=== PATIENT | female | born 1980 | race Caucasian/White ===

== ENCOUNTER 2020-04-24 08:02 | Outpatient (CLI) | payer BC, SELFPAY ==
[2020-04-24 08:37] LABS: Alanine Aminotransferase 14 U/L (4-35); Albumin Level 4.5 g/dL (3.5-5.1); Alkaline Phosphatase 42 U/L (38-126); Anion Gap 9 mmol/L (8-16); Aspartate Amino Transferase 20 U/L (14-36); Bilirubin,Total 0.6 mg/dL (0.2-1.3); Blood Urea Nitrogen 12 mg/dL (7-17); Calcium 9.2 mg/dL (8.4-10.2); Carbon Dioxide 24 mmol/L (22-30); Chloride 104 mmol/L (98-107); Cholesterol 174 mg/dL (0-200); Estimated Glomerular Filt Rate > 60; Glucose 115 mg/dL (65-105); HDL Direct 32 mg/dL; Potassium 4.2 mmol/L (3.4-5.0); Sodium 137 mmol/L (137-145); Triglycerides 129 mg/dL (<150)
[2020-04-24 08:48] LABS: LDL Cholesterol Direct 114 mg/dL
[2020-04-24 08:57] LABS: Hemoglobin A1C 5.4 % (<5.7)
[2020-04-24 09:25] LABS: Thyroid Stimulating Hormone Reflex 0.998 uIU/mL (0.465-4.68)
[2020-04-29 04:38] LABS: Insulin Level Total 5.4 uIU/mL (<=19.6)
[2020-04-30 12:29] LABS: Triiodothyronine T3 Free 3.5
== END 2020-04-24 08:03 | disposition home or self-care (01) ==
LOC: ANHLAB 08:05
PROVIDERS: PCP Family Medicine; Visit Provider Internal Medicine Endocrinology, Diabetes & Metabolism
DX: R73.01 Impaired fasting glucose (principal); Z13.220 Encounter for screening for lipoid disorders; E04.1 Nontoxic single thyroid nodule
CPT/HCPCS: 36415; 80053; 80061; 83036; 83525; 84439; 84443; 84481

== ENCOUNTER 2020-07-29 10:08 | Outpatient (CLI) | payer BC, SELFPAY ==
[2020-07-29 11:01] LABS: Hemoglobin A1C 5.1 % (<5.7)
[2020-07-29 11:13] LABS: Alanine Aminotransferase 14 U/L (4-35); Albumin Level 4.4 g/dL (3.5-5.1); Alkaline Phosphatase 50 U/L (38-126); Anion Gap 7 mmol/L (8-16); Aspartate Amino Transferase 22 U/L (14-36); Bilirubin,Total 0.5 mg/dL (0.2-1.3); Blood Urea Nitrogen 10 mg/dL (7-17); Calcium 9.2 mg/dL (8.4-10.2); Carbon Dioxide 29 mmol/L (22-30); Chloride 104 mmol/L (98-107); Estimated Glomerular Filt Rate > 60; Glucose 99 mg/dL (65-105); Sodium 140 mmol/L (137-145)
[2020-07-29 11:37] LABS: Thyroid Stimulating Hormone 0.664 uIU/mL (0.465-4.680)
[2020-07-29 11:51] LABS: Free T4 Free Thyroxine 1.12 ng/mL (0.78-2.19)
[2020-08-01 05:55] LABS: Insulin Level Total 4.6 uIU/mL (<=19.6); Thyroid Peroxidase Antibodies 4 IU/mL (<9)
[2020-08-02 06:48] LABS: Triiodothyronine T3 Free 3.1 pg/mL (2.3-4.2)
[2020-08-04 05:14] LABS: Calcitonin <2 pg/mL (<=5)
== END 2020-07-29 10:09 | disposition home or self-care (01) ==
LOC: ANHLAB 10:10
PROVIDERS: PCP Family Medicine; Visit Provider Internal Medicine Endocrinology, Diabetes & Metabolism
DX: R73.01 Impaired fasting glucose (principal); E04.1 Nontoxic single thyroid nodule
CPT/HCPCS: 36415; 80053; 82308; 83036; 83525; 84439; 84443; 84481; 86376

== ENCOUNTER 2020-08-20 14:12 | Outpatient (CLI) | payer BC, SELFPAY ==
--- NOTE | ~2020-08-20 | US_ITS ---
EXAMINATION: US thyroid DATE: 08/20/2020 14:36 INDICATION: Nontoxic single thyroid nodule. TECHNIQUE: Multiple ultrasound images of the thyroid were obtained. COMPARISON: None. FINDINGS: The right thyroid lobe measures 4.6 x 2.1 x 1.4 cm. The left thyroid lobe measures 4.5 x 1.6 x 1.3 c m. In the right thyroid lobe, there is a 7 mm solid, hypoechoic, wznse-krfj-uruo nodule with lobulat ed margin without echogenic foci (TI-RADS TR4). In the thyroid isthmus, there is a 6 mm solid, hypoec hoic, ebxky-jdsk-joyp nodule with ill-defined margin without echogenic foci (TR4). IMPRESSION: 1. Small thyroid nodules, likely not clinically significant. No follow-up is needed. Reviewed, dictated and finalized at location A. UNT SUPPORT ASSOCIATE IMPRESSION: 1. Small thyroid nodules, likely not clinically significant. No follow-up is ne eded.
== END 2020-08-20 14:13 | disposition home or self-care (01) ==
PROVIDERS: PCP Family Medicine; Visit Provider Internal Medicine Endocrinology, Diabetes & Metabolism
DX: E04.2 Nontoxic multinodular goiter (principal)
CPT/HCPCS: 76536

== ENCOUNTER 2020-10-15 07:52 | Outpatient (CLI) | payer BC, SELFPAY ==
[2020-10-15 08:57] LABS: Alanine Aminotransferase 19 U/L (4-35); Albumin Level 4.5 g/dL (3.5-5.1); Alkaline Phosphatase 41 U/L (38-126); Anion Gap 9 mmol/L (8-16); Aspartate Amino Transferase 23 U/L (14-36); Bilirubin,Total 0.6 mg/dL (0.2-1.3); Blood Urea Nitrogen 11 mg/dL (7-17); Calcium 9.3 mg/dL (8.4-10.2); Carbon Dioxide 24 mmol/L (22-30); Chloride 105 mmol/L (98-107); Estimated Glomerular Filt Rate > 60; Glucose 100 mg/dL (65-105); Potassium 4.1 mmol/L (3.4-5.0); Sodium 138 mmol/L (137-145)
[2020-10-15 10:17] LABS: Free T4 Free Thyroxine 1.14 ng/mL (0.78-2.19); Vitamin D 25 Hydroxy 44.1 ng/mL
[2020-10-15 10:18] LABS: Folic Acid > 20.0 ng/mL (2.76->20)
[2020-10-17 03:42] LABS: Insulin Level Total 5.8 uIU/mL (<=19.6); Thyroid Peroxidase Antibodies 2 IU/mL (<9)
[2020-10-18 06:53] LABS: Triiodothyronine T3 Free 3.5 pg/mL (2.3-4.2)
[2020-10-19 05:03] LABS: Calcitonin <2 pg/mL (<=5)
[2020-10-20 14:03] LABS: Thyroid Stimulating Immunoglob <89 % baseline (<140)
== END 2020-10-15 07:53 | disposition home or self-care (01) ==
LOC: ANHLAB 07:55
PROVIDERS: PCP Family Medicine; Visit Provider Internal Medicine Endocrinology, Diabetes & Metabolism
DX: R73.01 Impaired fasting glucose (principal); E04.1 Nontoxic single thyroid nodule; E06.3 Autoimmune thyroiditis; E55.9 Vitamin D deficiency, unspecified
CPT/HCPCS: 36415; 80053; 82306; 82308; 82607; 82746; 83036; 83525; 84439; 84443; 84445; 84481; 86376

== ENCOUNTER 2021-07-12 07:42 | Outpatient (CLI) | payer BC, SELFPAY ==
[2021-07-12 09:10] LABS: Thyroid Stimulating Hormone 0.826 uIU/mL (0.465-4.680)
[2021-07-12 09:20] LABS: Free T4 Free Thyroxine 1.17 ng/mL (0.78-2.19)
[2021-07-12 09:39] LABS: Alanine Aminotransferase 12 U/L (4-35); Albumin Level 4.2 g/dL (3.5-5.1); Alkaline Phosphatase 48 U/L (38-126); Anion Gap 8 mmol/L (8-16); Aspartate Amino Transferase 18 U/L (14-36); Bilirubin,Total 0.5 mg/dL (0.2-1.3); Blood Urea Nitrogen 8 mg/dL (7-17); Calcium 9.2 mg/dL (8.4-10.2); Carbon Dioxide 26 mmol/L (22-30); Chloride 106 mmol/L (98-107); Glucose 104 mg/dL (65-110); Sodium 140 mmol/L (137-145)
[2021-07-12 09:41] LABS: Estimated Glomerular Filt Rate > 60
[2021-07-15 05:55] LABS: Insulin Level Total 4.5 uIU/mL (<=19.6); Thyroid Peroxidase Antibodies 3 IU/mL (<9)
[2021-07-17 11:56] LABS: Pancreatic Elastase, Stool >500 mcg/g
[2021-07-18 01:36] LABS: Fecal Fat, Ql Normal (Normal)
[2021-07-18 08:41] LABS: Gliadin AB, IgG 170.6 U/mL (<15.0); Reticulin IgA Negative (Negative); TTG IGA AB <1.0 U/mL (<15.0)
== END 2021-07-12 07:43 | disposition home or self-care (01) ==
PROVIDERS: PCP Family Medicine
DX: R73.01 Impaired fasting glucose (principal); E06.3 Autoimmune thyroiditis; R19.5 Other fecal abnormalities
CPT/HCPCS: 36415; 80053; 82656; 82705; 83036; 83516; 83525; 84439; 84443; 86255; 86376

== ENCOUNTER 2021-10-22 22:29 | Emergency (ER) | payer BC, SELFPAY ==
--- NOTE | ~2021-10-22 | CT_ITS ---
EXAMINATION: CT abdomen pelvis w con DATE: 10/23/2021 00:08 INDICATION: Left upper quadrant abdominal pain radiating to the mid sternal area. TECHNIQUE: Computed tomography (CT) of the abdomen and pelvis was performed with 100 mL Omnipaque-350 intravenous contrast. Automated exposure control and iterative reconstruction technique were employe d. The dose-length product was 352.57 mGy-cm. COMPARISON: 10/05/2017 FINDINGS: Minimal dependent atelectasis in the bilateral lower lobes. Heart size is normal. No pericardial or p leural effusion. Liver, gallbladder, spleen, pancreas, bilateral adrenal glands and kidneys are jose antonio l. A couple low-attenuation subcentimeter cysts at the lower poles of both kidneys. Bowels including the appendix are normal. Small fat-containing right inguinal hernia. Bladder, retroverted uterus and right adnexa are unremarkable. 1.8 cm left ovarian cyst/follicle. No free intraperitoneal gas or flui d. No pathologically enlarged abdominal or pelvic lymphadenopathy. Moderate degenerative disc disease with vacuum phenomena at L5-S1. IMPRESSION: 1. No acute intra-abdominal/pelvic process. 2. Small fat-containing right inguinal hernia. Reviewed, dictated and finalized at location A. S EXAMINER
[2021-10-22 22:43] VITALS: BP 138/85; PULSE 96; RESP 16; TEMP 36.3; O2SAT 100
[2021-10-22 22:50] LABS: Basophils Absolute Auto 0.1 K/mm3 (0.0-0.1); Basophils Percent Auto 0.9 % (0.2-1.2); Eosinophils Absolute Auto 0.4 K/mm3 (0-0.3); Eosinophils Percent Auto 4.2 % (0-4.4); Hematocrit 37.9 % (37.0-47.0); Hemoglobin 12.7 g/dL (12.0-15.0); Immature Granulocyte Absolute 0.03 K/mm3 (0.00-0.031); Immature Granulocyte Percent A 0.3 % (0-0.5); Lymphocytes Absolute Auto 2.76 K/mm3 (0.9-3.2); Lymphocytes Percent Auto 27.1 % (18.3-44.2); Mean Corpuscular HGB Conc 33.5 g/dl (32-36); Mean Corpuscular Hemoglobin 29.5 pg (26-34); Mean Corpuscular Volume 88.1 fl (80-100); Mean Platelet Volume 9.5 fl (7.4-10.4); Monocytes Absolute Auto 0.5 K/mm3 (0.1-0.6); Monocytes Percent Auto 5.1 % (2.6-8.5); Neutrophils Absolute Auto 6.3 K/mm3 (1.3-6.7); Neutrophils Percent Auto 62.4 % (45.5-73.1); Platelet Count Result 378 k/mm3 (150-375); Red Cell Distribution Width 12.9 % (11.5-14.5); White Blood Count 10.2 K/mm3 (4.5-10.0)
[2021-10-22 22:56] LABS: Alanine Aminotransferase 12 U/L (4-35); Albumin Level 4.7 g/dL (3.5-5.1); Alkaline Phosphatase 49 U/L (38-126); Anion Gap 9 mmol/L (8-16); Aspartate Amino Transferase 18 U/L (14-36); Bilirubin,Total 0.5 mg/dL (0.2-1.3); Blood Urea Nitrogen 11 mg/dL (7-17); Calcium 9.9 mg/dL (8.4-10.2); Carbon Dioxide 23 mmol/L (22-30); Chloride 106 mmol/L (98-107); Estimated CRCL calculation 70 ml/min; Estimated Glomerular Filt Rate > 60; Glucose 98 mg/dL (65-110); Lipase 165 U/L (23-300); Potassium 4.3 mmol/L (3.4-5.0); Sodium 138 mmol/L (137-145)
[2021-10-22 23:13] LABS: Add Urine Microscopic? NO; Appearance Urine Clear (Clear); Bilirubin Urine Negative (Negative); Blood Urine Negative (Negative); Color Urine Colorless (Yellow); Glucose Urine UA Negative (Negative); Ketones Urine Negative (Negative); Leukocyte Esterase Ur Negative LEU/UL (Negative); Nitrate Urine Negative (Negative); Protein Urine Negative (Negative); Urobilinogen Urine Negative mg/dL (<2.0)
[2021-10-22 23:24] LABS: Specific Grav Ur 1.003 (1.001-1.035)
--- NOTE | 2021-10-22 23:31 | ED.ABDPAIN ---
HPI - Abdominal Pain General Chief Complaint: Abdominal Pain Stated Complaint: LUQ abd pain Time Seen by Provider: 10/22/21 23:12 History of Present Illness HPI narrative: 41-year-old female presents to the emergency room with acute onset of left upper quadrant pain. States pain started about 2 hours ago. Reports pain radiates into the back. Describes pain as sharp and stabbing. No history of similar symptoms. Abdominal pain is associated with several episodes of diarrhea. Denies nausea vomiting. Related Data Home Medications Medication Instructions Recorded Confirmed metformin mg PO 10/23/21 Allergies Allergy/AdvReac Type Severity Reaction Status Date / Time No Known Allergies Allergy Verified 10/23/21 00:20 Review of Systems Review of Systems: CONSTITUTIONAL: Denies fever, chills, or sweats. EYES: Denies visual changes, redness, or discharge. ENT: Denies rhinorrhea, congestion, sore throat, or otalgia. CARDIOVASCULAR: Denies chest pain, palpitations, or edema. RESPIRATORY: Denies cough or dyspnea. GASTROINTESTINAL: Reports abdominal pain and diarrhea. GENITOURINARY: Denies dysuria or hematuria. SKIN: Denies rash or itching. MUSCULOSKELETAL: Denies back pain, joint pain, or myalgia. NEUROLOGIC: Denies headache, numbness, dizziness, or weakness. PSYCHIATRIC: Denies anxiety or depression. [facility] Past Medical History Medical History (Updated 10/23/21 @ 00:31 by Maurice Infante APRN) Floyr's disease Family History Family History Mother Family history of malignant neoplasm of breast in first degree relative Patient's mother is in good health Father Patient's father is in good health Social History Social History Smoking status: Never smoker Second hand tobacco smoke exposure: No Alcohol intake: current Exam Narrative: GENERAL: Well-appearing, well-nourished, and in no acute distress. HEAD: Normocephalic, atraumatic. EYES: PERRLA and EOMI. ENT: Nares clear, no rhinorrhea or epistaxis. Mucous membranes moist. Oropharynx without tonsillar hypertrophy exudate or other lesions. Bilateral TMs pearly lizarraga nonbulging NECK: Supple. No adenopathy or masses. No carotid bruits or JVD CHEST: Clear to auscultation. No respiratory distress. No wheezes rales or rhonchi HEART: Regular rate and rhythm. No murmur heard. Normal peripheral pulses. ABDOMEN: Soft, LUQ tenderness, nondistended, normal active bowel sounds. No CVA tenderness EXTREMITIES: Normal range of motion. No edema. SKIN: Warm, dry, no rash. NEURO: No focal deficits. Alert and oriented x3. PSYCH: Normal mood and affect. Course Course Emergency Course: 41-year-old female present to the emergency room with complaints of left upper quadrant abdominal pain that acutely started at about 9:00 this evening. Patient also states that she had multiple episodes of diarrhea. On further interview patient stated that she recently recovered from an upper respiratory infection. Lab work demonstrated no acute abnormal results. CT scan demonstrated mesenteric adenitis. Vital Signs Vital signs: Vital Signs Temperature 36.3 C L 10/22/21 22:43 Pulse Rate 96 10/22/21 22:43 Respiratory Rate 16 10/22/21 22:43 Blood Pressure 138/85 10/22/21 22:43 Pulse Oximetry 100 10/22/21 22:43 Temperature 36.3 C L 10/22/21 22:43 Pulse Rate 85 10/23/21 00:18 Respiratory Rate 18 10/23/21 00:18 Blood Pressure 111/70 10/23/21 00:18 Pulse Oximetry 97 10/23/21 00:18 MDM - Abdominal Pain MDM Narrative Medical decision making narrative: Patient demonstrates mesenteric adenitis of the left upper quadrant. Discussed with patient to start on a clear liquid diet and then advance as tolerated. Patient stated Differential Diagnosis Differential diagnosis: Likely abdominal pain Medical Records Attestation: I reviewed the patient's m
[2021-10-23 00:18] VITALS: BP 111/70; PULSE 85; RESP 18; O2SAT 97
[2021-10-23] MEDS: SODIUM CHLORIDE 0.9% IV 1,000 ML 999 ML IV CONT (00:18)
[2021-10-23 00:55] VITALS: BP 110/70; PULSE 91; RESP 18; O2SAT 97
== END 2021-10-23 00:49 | disposition home or self-care (01) ==
PROVIDERS: Emergency Medicine; Emergency Provider Nurse Practitioner Family; PCP Family Medicine
DX: I88.0 Nonspecific mesenteric lymphadenitis (principal); E06.3 Autoimmune thyroiditis; Z79.84 Long term (current) use of oral hypoglycemic drugs
CPT/HCPCS: 36415; 74177; 80053; 81003; 81025; 83690; 85025; 96360; 99284; J7030; Q9967

== ENCOUNTER 2022-01-20 16:43 | Emergency (ER) | payer BC, SELFPAY ==
--- NOTE | ~2022-01-20 | XR_ITS ---
EXAMINATION: XR chest 2V DATE: 01/20/2022 17:13 INDICATION: Cough. TECHNIQUE: Frontal and lateral views of the chest were obtained. COMPARISON: Chest 2 views 03/21/2018, CT abdomen and pelvis 10/22/2021 FINDINGS: The chest demonstrates clear lungs without pneumonia, pleural effusion, or pneumothorax. Th e heart size is normal. IMPRESSION: 1. No acute cardiopulmonary disease. Reviewed, dictated and finalized at location A.
[2022-01-20 16:53] VITALS: BP 113/81; PULSE 78; RESP 16; TEMP 37.4; O2SAT 100
--- NOTE | 2022-01-20 17:03 | ED.URI ---
HPI - URI/Sore Throat General Chief Complaint: Upper Respiratory Infection Stated Complaint: cough Time Seen by Provider: 01/20/22 16:53 Source: patient and RN notes reviewed Mode of arrival: ambulatory Limitations: no limitations History of Present Illness HPI Narrative: 41-year-old female presented for complaint of cough for 6 days. She endorses cough is nonproductive, frequent, to the point of gagging, and sore throat. She denies associated shortness of breath, wheezing, nausea, vomiting, diarrhea, fever or chills. Taking DayQuil for symptoms. She is not vaccinated for COVID or flu. Denies sick contacts. States last month she was diagnosed with [place]. MD elicited complaint: cough Related Data Home Medications Medication Instructions Recorded Confirmed metformin 500 mg PO DAILY 01/20/22 01/20/22 Allergies Allergy/AdvReac Type Severity Reaction Status Date / Time No Known Allergies Allergy Verified 01/20/22 17:04 Review of Systems Review of Systems: CONSTITUTIONAL: Denies malaise, chills, sweats, fever EYES: Denies visual changes, redness, or discharge ENT: Denies rhinorrhea, congestion, sinus pain, otalgia CARDIOVASCULAR: Denies chest pain, palpitations, edema RESPIRATORY: Denies dyspnea GASTROINTESTINAL: Denies abdominal pain, nausea, vomiting, diarrhea SKIN: Denies rash or itching MUSCULOSKELETAL: Denies myalgia NEUROLOGIC: Denies headache PMFSH Past Medical History Medical History Flory's disease Surgical History Surgical History H/O sinus surgery Hx of laparoscopy Family History Family History Mother Family history of malignant neoplasm of breast in first degree relative Patient's mother is in good health Father Patient's father is in good health Social History Social History Smoking packs per day: 1 Smoking cigarettes per day: 20.0 Years smoked: 8 Smoking pack-years: 8.00 Smoking status: Former smoker Second hand tobacco smoke exposure: No Smoking end date: 09/04/04 Alcohol intake: never Substance use: never Substance use type: does not use Gender identity (if verbalized by the patient): Female Exam Narrative: GENERAL: Ill-appearing, nontoxic HEAD: Normocephalic EYES: conjunctivae clear ENT: Mucous membranes moist. TM pearly lizarraga with normal light reflex bilaterally; no tragal tenderness. Oropharynx without lesions or exudate, no drooling, no hoarseness, no trismus, uvula midline. NECK: Supple. No lymphadenopathy CHEST: Frequent nonproductive cough. Lungs Clear to auscultation, breath sounds equal. No respiratory distress, speaks in full sentences. HEART: Regular rate and rhythm. No murmur heard. SKIN: Warm, dry, no rash. NEURO: Alert and oriented x3. PSYCH: Normal mood and affect Course Course Emergency Course: Patient is aware of diagnosis, understands and agrees to treatment plan. Anticipatory guidance given. Patient agrees to follow-up as directed and is aware of reasons to seek care at the emergency department. Portions of this record may have been created with voice recognition software Level of Care: Express Care Visit Vital Signs Vital signs: Vital Signs Temperature 99.4 F 01/20/22 16:53 Pulse Rate 78 01/20/22 16:53 Respiratory Rate 16 01/20/22 16:53 Blood Pressure 113/81 01/20/22 16:53 Pulse Oximetry 100 01/20/22 16:53 Temperature 99.4 F 01/20/22 16:53 Pulse Rate 78 01/20/22 16:53 Respiratory Rate 16 01/20/22 16:53 Blood Pressure 113/81 01/20/22 16:53 Pulse Oximetry 100 01/20/22 16:53 reviewed MDM - URI/Sore Throat MDM Narrative Medical decision making narrative: Chest x-ray reviewed with patient, negative. Strep throat negative. She is advised on supportive treatment
== END 2022-01-20 17:53 | disposition home or self-care (01) ==
PROVIDERS: Emergency Provider Nurse Practitioner Family; PCP Family Medicine
DX: J40 Bronchitis, not specified as acute or chronic (principal); Z87.891 Personal history of nicotine dependence; E06.3 Autoimmune thyroiditis; Z28.310 Unvaccinated for COVID-19
CPT/HCPCS: 71046; 87081; 87880; 99213; G0463

== ENCOUNTER 2022-04-15 07:42 | Outpatient (CLI) | payer BC, SELFPAY ==
[2022-04-15 08:21] LABS: Alanine Aminotransferase 13 U/L (6-35); Albumin Level 4.5 g/dL (3.5-5.1); Alkaline Phosphatase 44 U/L (38-126); Anion Gap 11 mmol/L (8-16); Aspartate Amino Transferase 20 U/L (14-36); Bilirubin,Total 0.5 mg/dL (0.2-1.3); Blood Urea Nitrogen 11 mg/dL (7-17); Calcium 9.4 mg/dL (8.4-10.2); Carbon Dioxide 24 mmol/L (22-30); Chloride 102 mmol/L (98-107); Estimated Glomerular Filt Rate > 60; Glucose 102 mg/dL (65-110); Potassium 4.5 mmol/L (3.4-5.0); Sodium 137 mmol/L (137-145)
[2022-04-15 08:23] LABS: Hemoglobin A1C 5.1 % (<5.7)
[2022-04-15 08:45] LABS: Free T4 Free Thyroxine 1.29 ng/mL (0.78-2.19)
[2022-04-18 02:28] LABS: Insulin Level Total 4.7 uIU/mL (<=19.6); Thyroid Peroxidase Antibodies 5 IU/mL (<9)
[2022-04-18 21:13] LABS: Triiodothyronine T3 Free 3.4 pg/mL (2.3-4.2)
== END 2022-04-15 07:43 | disposition home or self-care (01) ==
LOC: ANHLAB 07:48
PROVIDERS: PCP Family Medicine; Visit Provider Nurse Practitioner
DX: E06.3 Autoimmune thyroiditis (principal); R73.01 Impaired fasting glucose
CPT/HCPCS: 36415; 80053; 83036; 83525; 84439; 84443; 84481; 86376

== ENCOUNTER → 2022-05-31 15:47 | Outpatient (CLI) | payer BC, SELFPAY ==
--- NOTE | ~2022-05-31 | CT_ITS ---
EXAMINATION: CT pelvis w con DATE: 05/31/2022 16:16 INDICATION: Right groin mass. TECHNIQUE: High resolution computed tomography (CT) of the pelvis was performed without intravenous c ontrast. Additional sagittal and coronal reconstructions were performed. The dose-length product was 422.62 mGy-cm. COMPARISON: CT dated 10/22/2019 FINDINGS: Minimal thoracolumbar levocurvature best appreciated on the hotel director topogram. Moderate to severe spondy losis at the lumbosacral junction. Alignment is otherwise normal. No fracture or suspected avascular necrosis. No fracture. Tiny sclerotic bone island at the right femoral head. Bladder and retroverted uterus are normal. Right adnexa is unremarkable. 2.0 cm left adnexal cyst/follicle. Tiny fat-containi ng umbilical hernia. Visualized portions of the bowels are unremarkable. Normal appendix. Partially d ecompressed bladder is normal. No free intraperitoneal gas. 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 No pathologically enlarged abdominal or pelvic lymphadenopathy. Very small fat-containing right inguinal hernia. IMPRESSION: 1. 2 cm left adnexal cyst/follicle. No other acute intrapelvic process. 2. Very small right inguinal hernia. Reviewed, dictated and finalized at location A.
== END ==
PROVIDERS: PCP Family Medicine; Visit Provider Physician Assistant
DX: R19.09 Other intra-abdominal and pelvic swelling, mass and lump (principal); K40.90 Unilateral inguinal hernia, without obstruction or gangrene, not specified as recurrent
CPT/HCPCS: 72193; Q9967

== ENCOUNTER 2022-06-02 14:26 | Outpatient (RCR) | payer BC, SELFPAY ==
[2022-06-02 15:24] VITALS: BMI 27.9
== END 2022-08-24 11:28 | disposition home or self-care (01) ==
LOC: ANHDMC 14:26
PROVIDERS: PCP Family Medicine; Visit Provider Nurse Practitioner
DX: R76.8 Other specified abnormal immunological findings in serum (principal); Z71.3 Dietary counseling and surveillance
CPT/HCPCS: 97802

== ENCOUNTER 2022-09-03 07:43 | Outpatient (CLI) | payer BC, SELFPAY ==
[2022-09-03 08:15] LABS: Cholesterol 179 mg/dL (0-200); HDL Direct 39 mg/dL; Triglycerides 178 mg/dL (<150)
[2022-09-03 08:26] LABS: LDL Cholesterol Direct 99 mg/dL
[2022-09-03 09:02] LABS: Vitamin D 25 Hydroxy 38.5 ng/mL
== END 2022-09-03 07:44 | disposition home or self-care (01) ==
LOC: ANHLAB 07:44
PROVIDERS: PCP Family Medicine; Visit Provider Physician Assistant Medical
DX: E55.9 Vitamin D deficiency, unspecified (principal); E78.2 Mixed hyperlipidemia
CPT/HCPCS: 36415; 80061; 82306

== ENCOUNTER 2022-11-18 17:30 | Emergency (ER) | payer BC, SELFPAY ==
[2022-11-18 17:37] VITALS: BP 119/81; PULSE 66; RESP 18; TEMP 36.7; O2SAT 100
--- NOTE | 2022-11-18 17:37 | ED.GENADULT ---
HPI - General Adult General Chief complaint: Unspecified Stated complaint: Water fluid from nose; headache Time Seen by Provider: 11/18/22 17:37 Source: patient, RN notes reviewed and old records reviewed Mode of arrival: ambulatory Limitations: no limitations History of Present Illness HPI narrative: 42-year-old female presents to the [facility] with complaints of approximately 1 hour prior to arrival while she was cooking dinner her nose just started pouring out yellow tinged fluid. Called her insurance and started go googling her symptoms. She also states she developed a frontal headache. Denies any trauma. Denies any fevers. No coughing. Denies blurry vision or change in vision. States it is just small headache. Denies being the worst headache of her life. Walks with a normal gait Patient states the fluid was just pouring out her nose in all over her shirt Related Data Home Medications Medication Instructions Recorded Confirmed metformin 500 mg tablet,extended 500 mg PO DAILY 01/20/22 07/21/22 release 24 hr Allergies Allergy/AdvReac Type Severity Reaction Status Date / Time No Known Allergies Allergy Verified 11/18/22 17:45 Review of Systems Review of Systems: All systems reviewed & are unremarkable except as noted in HPI and below Constitutional: Constitutional: Reports no additional constitutional complaints Eyes: Eyes: Reports no additional eye complaints ENT: Reports as per HPI and Reports nasal discharge (yellow) Cardiovascular: Cardiovascular: Reports no additional cardiovascular complaints, Denies chest pain and Denies dyspnea Respiratory: Respiratory: Reports no additional respiratory complaints, Denies chest congestion, Denies cough and Denies dyspnea Gastrointestinal: Gastrointestinal: Reports no additional gastrointestinal complaints, Denies abdominal pain, Denies nausea and Denies vomiting Musculoskeletal: Musculoskeletal: Reports no additional musculoskeletal complaints Integumentary/Breasts: Skin/Breast: Reports system reviewed and no additional complaints, except as docu Neurologic: Reports system reviewed and no additional complaints, except as documented Psychiatric: Psychiatric: Reports no additional psychiatric complaints Allergic/Immunologic: Allergic/Immunologic: Reports no additional allergic/immunologic complaints PMFSH Past Medical History Medical History Flory's disease Surgical History Surgical History H/O sinus surgery Hx of laparoscopy Family History Family History Mother Family history of malignant neoplasm of breast in first degree relative Patient's mother is in good health Father Patient's father is in good health Social History Social History Smoking packs per day: 1 Smoking cigarettes per day: 20.0 Years smoked: 8 Smoking pack-years: 8.00 Smoking status: Former smoker Second hand tobacco smoke exposure: No Smoking end date: 09/04/04 Alcohol intake: never Substance use: never Substance use type: does not use Lack of Transportation: No Lack of Food: Never True Current Housing: I Have Housing Concerned About Future Housing: No Difficulty Paying Gas/Electric Bills: No Difficulty Paying for Meds: No Currently Unemployed: No Education: Bachelor's Degree Difficulty w/ Childcare or Family Care: No Living arrangements: with family Occupation/Education: occupation Gender identity (if verbalized by the patient): Female Spiritual care concerns: No Agree to blood products: Yes Comments At the time of my signature, I reviewed and agree with the nursing past medical, surgical, social, and family history. There is no relevant family history pertinent to the patient complaint. Exam Co
== END 2022-11-18 17:52 | disposition home or self-care (01) ==
PROVIDERS: Emergency Provider Nurse Practitioner; PCP Family Medicine
DX: J34.89 Other specified disorders of nose and nasal sinuses (principal); Z87.891 Personal history of nicotine dependence
CPT/HCPCS: 99211; G0463

== ENCOUNTER 2022-12-08 14:34 | Outpatient (NON) | payer BC, SELFPAY | END 2022-12-08 14:35 | disposition home or self-care (01) | PROVIDERS: PCP Family Medicine; Visit Provider Nurse Practitioner | DX: D22.61 Melanocytic nevi of right upper limb, including shoulder (principal) | CPT/HCPCS: 88305 ==

== ENCOUNTER 2023-01-04 07:29 | Outpatient (CLI) | payer BC, SELFPAY ==
[2023-01-04 08:49] LABS: Alanine Aminotransferase 19 U/L (6-35); Albumin Level 4.5 g/dL (3.5-5.1); Alkaline Phosphatase 45 U/L (38-126); Anion Gap 8 mmol/L (8-16); Aspartate Amino Transferase 18 U/L (14-36); Bilirubin,Total 0.6 mg/dL (0.2-1.3); Blood Urea Nitrogen 11 mg/dL (7-17); Calcium 9.1 mg/dL (8.4-10.2); Carbon Dioxide 22 mmol/L (22-30); Chloride 108 mmol/L (98-107); Estimated Glomerular Filt Rate > 60; Glucose 117 mg/dL (65-110); Potassium 3.9 mmol/L (3.4-5.0); Sodium 138 mmol/L (137-145)
[2023-01-04 09:17] LABS: Free T4 Free Thyroxine 1.09 ng/mL (0.78-2.19)
[2023-01-07 04:57] LABS: Insulin Level Total 7.2 uIU/mL (<=19.6); Thyroid Peroxidase Antibodies 4 IU/mL (<9)
== END 2023-01-04 07:30 | disposition home or self-care (01) ==
PROVIDERS: PCP Family Medicine; Visit Provider Internal Medicine Endocrinology, Diabetes & Metabolism
DX: E06.3 Autoimmune thyroiditis (principal); R73.01 Impaired fasting glucose
CPT/HCPCS: 36415; 80053; 83036; 83525; 84439; 84443; 84480; 86376

== ENCOUNTER 2023-01-24 11:22 | Outpatient (NON) | payer BC, SELFPAY | END 2023-01-24 11:23 | disposition home or self-care (01) | LOC: ANHLAB 01-25 11:24 | PROVIDERS: PCP Family Medicine; Visit Provider Nurse Practitioner | DX: I78.1 Nevus, non-neoplastic (principal) | CPT/HCPCS: 88305 ==

== ENCOUNTER 2023-11-17 08:55 | Outpatient (CLI) | payer BC, SELFPAY ==
[2023-11-17 09:34] LABS: Alanine Aminotransferase 20 U/L (6-35); Albumin Level 4.5 g/dL (3.5-5.1); Alkaline Phosphatase 54 U/L (38-126); Anion Gap 7 mmol/L (8-16); Aspartate Amino Transferase 21 U/L (14-36); Bilirubin,Total 0.5 mg/dL (0.2-1.3); Blood Urea Nitrogen 17 mg/dL (7-17); Calcium 9.5 mg/dL (8.4-10.2); Carbon Dioxide 24 mmol/L (22-30); Chloride 106 mmol/L (98-107); Cholesterol 181 mg/dL (0-200); Estimated Glomerular Filt Rate > 60; Glucose 115 mg/dL (65-110); HDL Direct 41 mg/dL; Potassium 4.1 mmol/L (3.4-5.0); Sodium 137 mmol/L (137-145); Triglycerides 145 mg/dL (<150)
[2023-11-17 09:45] LABS: LDL Cholesterol Direct 124 mg/dL
[2023-11-17 10:09] LABS: Vitamin D 25 Hydroxy 54.2 ng/mL
== END 2023-11-17 08:56 | disposition home or self-care (01) ==
LOC: ANHLAB 08:57
PROVIDERS: PCP Family Medicine; Visit Provider Family Medicine
DX: Z00.00 Encounter for general adult medical examination without abnormal findings (principal); E55.9 Vitamin D deficiency, unspecified; E78.2 Mixed hyperlipidemia
CPT/HCPCS: 36415; 80053; 80061; 82306

== ENCOUNTER 2024-01-31 08:59 | Outpatient (CLI) | payer BC, SELFPAY ==
--- NOTE | ~2024-01-31 | US_ITS ---
EXAMINATION: US thyroid DATE: 01/31/2024 09:20 INDICATION: Autoimmune thyroiditis. TECHNIQUE: Multiple ultrasound images of the thyroid were obtained. COMPARISON: Ultrasound 08/20/2020 FINDINGS: The right thyroid lobe measures 5.4 x 1.8 x 1.7 cm. The left thyroid lobe measures 5.0 x 1.6 x 1.4 c m. In the right thyroid lobe, there is an 8 mm solid, hypoechoic, wider than tall nodule with smooth margin without echogenic foci (TI-RADS TR4). In the left thyroid isthmus, there is a 9 mm solid, hyp oechoic, wider than tall nodule with smooth margins without echogenic foci (TR4). IMPRESSION: 1. Small thyroid nodules, likely not clinically significant. No follow-up is needed. Reviewed, dictated and finalized at location A. IMPRESSION: 1. Small thyroid nodules, likely not clinically significant. No follow-up is ne eded.
== END 2024-01-31 09:00 ==
PROVIDERS: PCP Family Medicine; Visit Provider Internal Medicine Endocrinology, Diabetes & Metabolism
DX: E06.3 Autoimmune thyroiditis (principal); E04.2 Nontoxic multinodular goiter
CPT/HCPCS: 76536

== ENCOUNTER 2024-03-27 02:57 | Emergency (ER) | payer BC, SELFPAY ==
--- NOTE | ~2024-03-27 | XR_ITS ---
EXAMINATION: XR chest 1V portable DATE: 03/27/2024 03:26 INDICATION: midsternal chest pain TECHNIQUE: frontal view of the chest was obtained. COMPARISON: Chest radiograph dated 01/20/2022 FINDINGS: The lungs remain clear with no focal airspace opacities, pulmonary edema, pleural effusion or pneumot horax. The cardiomediastinal silhouette is normal. Visualized bones and soft tissues are unremarkable . IMPRESSION: 1. No acute cardiopulmonary disease. Reviewed, dictated and finalized at location A.
--- NOTE | 2024-03-27 02:58 | ECG_ITS ---
Test Date: 2024-03-27 03:06:44 Measurements Intervals [place] Rate: 92 P: 48 [place]: 166 QRS: 10 QRSD: 93 T: 26 QT: 352 QTc: 436 Interpretive Statements SINUS RHYTHM DELAYED PRECORDIAL R/S TRANSITION BASELINE WANDER- V4 BORDERLINE ECG No previous ECG available for comparison Electronically Signed On 03-27-2024 06:29:07 CDT by Emiliano Martin D.O.
[2024-03-27 03:02] VITALS: BP 156/86; PULSE 97; RESP 17; TEMP 36.8; O2SAT 100
[2024-03-27] MEDS: ASPIRIN 81 MG CHEWABLE TABLET 324 MG PO (03:11)
[2024-03-27 03:25] LABS: Basophils Absolute Auto 0.1 K/mm3 (0.0-0.1); Basophils Percent Auto 0.8 % (0.2-1.2); Eosinophils Absolute Auto 0.3 K/mm3 (0-0.3); Eosinophils Percent Auto 2.7 % (0-4.4); Hematocrit 40.3 % (37.0-47.0); Hemoglobin 13.4 g/dL (12.0-15.0); Immature Granulocyte Absolute 0.03 K/mm3 (0.00-0.031); Immature Granulocyte Percent A 0.3 % (0-0.5); Mean Corpuscular HGB Conc 33.3 g/dl (32-36); Mean Corpuscular Hemoglobin 28.5 pg (26-34); Mean Corpuscular Volume 85.6 fl (80-100); Mean Platelet Volume 9.2 fl (7.4-10.4); Monocytes Absolute Auto 0.6 K/mm3 (0.1-0.6); Monocytes Percent Auto 5.6 % (2.6-8.5); Neutrophils Absolute Auto 7.4 K/mm3 (1.3-6.7); Neutrophils Percent Auto 73.6 % (45.5-73.1); Platelet Count Result 329 k/mm3 (150-375); Red Blood Count 4.71 M/mm3 (4.2-5.4); Red Cell Distribution Width 12.9 % (11.5-14.5)
[2024-03-27 03:31] VITALS: BP 117/84; PULSE 90; RESP 20; O2SAT 96
[2024-03-27 03:33] LABS: INR 0.9; Prothrombin Time 12.5 Seconds (11.1-14.7)
[2024-03-27 03:34] LABS: Partial Thromboplastin Time 25.1 Seconds (22.3-36.8)
[2024-03-27 03:40] LABS: Alanine Aminotransferase 13 U/L (6-35); Albumin Level 4.5 g/dL (3.5-5.1); Alkaline Phosphatase 61 U/L (38-126); Anion Gap 12 mmol/L (4-12); Aspartate Amino Transferase 17 U/L (14-36); Bilirubin,Total 0.3 mg/dL (0.2-1.3); Blood Urea Nitrogen 9 mg/dL (7-17); Calcium 9.4 mg/dL (8.4-10.2); Carbon Dioxide 20 mmol/L (22-30); Chloride 106 mmol/L (98-107); Estimated CRCL calculation 103 ml/min; Estimated Glomerular Filt Rate > 60; Glucose 145 mg/dL (65-110); Lipase 137 U/L (23-300); Potassium 3.6 mmol/L (3.4-5.0); Sodium 138 mmol/L (137-145)
[2024-03-27 03:46] VITALS: BP 118/81; PULSE 85; RESP 20; O2SAT 96
[2024-03-27 03:52] LABS: Troponin I < 0.012 ng/mL (0.000-0.034)
[2024-03-27 04:01] VITALS: BP 116/86; PULSE 87; RESP 18; O2SAT 97
[2024-03-27 04:16] VITALS: BP 115/74; PULSE 83; RESP 19; O2SAT 97
[2024-03-27 04:24] LABS: D Dimer 0.29 ug/mL (<0.48)
[2024-03-27 04:27] LABS: NT Pro B Type Natriuretic Pept < 20 pg/mL (19.9-100)
[2024-03-27 04:31] VITALS: BP 100/73; PULSE 95; RESP 26; O2SAT 98
--- NOTE | 2024-03-27 05:27 | ED.GENADULT ---
HPI - General Adult General Chief complaint: Chest Pain Stated complaint: chest tightness Time Seen by Provider: 03/27/24 03:51 History of Present Illness HPI narrative: This is a 43-year-old female presenting ED with chief complaint of chest tightness. Patient was woken up from sleep with her heart racing, difficulty catching her breath and left-sided achy chest pain. Chest pain is nonradiating, moderate and improving. Not associated with diaphoresis or exertion. Patient has recently started hormone replacement therapy for early menopause. Since she has started taking estrogen she has noticed increased anxiety. Patient has no history of blood clots or lower extremity edema. Related Data Allergies Allergy/AdvReac Type Severity Reaction Status Date / Time No Known Allergies Allergy Verified 11/13/23 10:58 [facility] Past Medical History Medical History Flory's disease Surgical History Surgical History H/O sinus surgery Hx of laparoscopy Family History Family History Mother Family history of malignant neoplasm of breast in first degree relative Patient's mother is in good health Father Patient's father is in good health Social History Social History Smoking packs per day: 1 Smoking cigarettes per day: 20.0 Years smoked: 8 Smoking pack-years: 8.00 Smoking status: Former smoker Second hand tobacco smoke exposure: No Smoking end date: 09/04/04 Alcohol intake: never Substance use: never Substance use type: does not use Lack of Transportation: No Lack of Food: Never True Current Housing: I Have Housing Concerned About Future Housing: No Difficulty Paying Gas/Electric Bills: No Difficulty Paying for Meds: No Currently Unemployed: No Education: Bachelor's Degree Difficulty w/ Childcare or Family Care: No Living arrangements: with family Occupation/Education: occupation Gender identity (if verbalized by the patient): Female Spiritual care concerns: No Agree to blood products: Yes Exam Narrative: APPEARANCE: No apparent distress. Head: atraumatic. EYES: EOMI, NOSE: Atraumatic NECK: Trachea midline RESPIRATORY: No increased rate of breathing clear to auscultation CARDIOVASCULAR: RRR, no peripheral edema ABDOMINAL: Non-distended soft nontender MUSCULOSKELETAl: No obvious deformities NEURO: Alert. Moving 4/4 extremities SKIN:: Warm, dry. Normal color PSYCHIATRIC: Normal affect Course Vital Signs Vital signs: Vital Signs Temperature 98.3 F 03/27/24 03:02 Pulse Rate 97 03/27/24 03:02 Respiratory Rate 17 03/27/24 03:02 Blood Pressure 156/86 H 03/27/24 03:02 Pulse Oximetry 100 03/27/24 03:02 Oxygen Delivery Room Air 03/27/24 03:02 Temperature 98.3 F 03/27/24 03:02 Pulse Rate 95 03/27/24 04:31 Respiratory Rate 26 H 03/27/24 04:31 Blood Pressure 100/73 03/27/24 04:31 Pulse Oximetry 98 03/27/24 04:31 Oxygen Delivery Room Air 03/27/24 03:02 Medical Decision Making MDM Narrative Medical decision making narrative: -Course: 43-year-old female presenting with chest pain that woke her from sleep. Workup including 2 troponins, BNP, D-dimer chest x-ray and EKG was negative. Patient monitor her throughout her stay without dysrhythmia or recurrence of the event. Patient safe for discharge home and outpatient workup. -DDX includes but is not limited to: Anxiety/panic disorder, ACS, PE/DVT/pneumothorax/pneumonia, costochondritis -Co-morbidities complicating care: Flory's, menopause with hormone replacement -Independent interpretation of studies: Labs reviewed Chest x-ray negative Independent EKG interpretation: Rhythm [sinus], Rate [92], [place] -[normal], NE -[normal], QRS [narrow], QTC [normal], T
[2024-03-27 06:30] LABS: Troponin I < 0.012 ng/mL (0.000-0.034)
== END 2024-03-27 06:54 | disposition home or self-care (01) ==
PROVIDERS: Emergency Provider Emergency Medicine; PCP Family Medicine
DX: R07.89 Other chest pain (principal); E06.3 Autoimmune thyroiditis; Z87.891 Personal history of nicotine dependence
CPT/HCPCS: 36415; 71045; 80053; 83690; 83880; 84484; 85025; 85380; 85610; 85730; 93005; 99284; A9270

== ENCOUNTER 2024-05-17 09:14 | Outpatient (CLI) | payer BC, SELFPAY ==
--- NOTE | ~2024-05-17 | XR_ITS ---
EXAMINATION: XR shoulder LT min 2V DATE: 05/17/2024 09:36 INDICATION: Left shoulder pain TECHNIQUE: AP internally and externally rotated, AP oblique externally rotated and transscapular Y vi ews of the left shoulder were obtained. COMPARISON: None FINDINGS: Normal alignment. No fracture. Glenohumeral joint is normal. Acromioclavicular joint is normal. Soft tissues are unremarkable. Visualized portion of the lungs are clear. IMPRESSION: Negative left shoulder radiographs. Reviewed, dictated and finalized at location B.
== END 2024-05-17 09:15 | disposition home or self-care (01) ==
PROVIDERS: PCP Family Medicine; Visit Provider Physician Assistant Medical
DX: M25.512 Pain in left shoulder (principal)
CPT/HCPCS: 73030

== ENCOUNTER 2025-04-22 14:30 | Outpatient (RCR) | payer BC, SELFPAY ==
--- NOTE | 2025-01-28 13:57 | OPREHPOC ---
Outpatient Therapy Plan of Care This is a Multidisciplinary Plan of Care that may contain components documented by all disciplines (PT, OT, and ST.) PT Problem 1 PT Problem #1 Knowledge Deficit PT Goal 1 Goal / Goal Update 1. Patient will perform independent HEP 2. Patient will verbalize urge suppression strategies Target Visit 3 PT Problem 2 PT Problem #2 Pain PT Goal 1 Goal / Goal Update 1. Patient will report no pelvic pain for 2 weeks Target Visit 5 PT Problem 3 PT Problem #3 Impaired Strength PT Goal 1 Goal / Goal Update 1. Improve pelvic floor strength to 4/5 to reduce symptoms of POP and incontinence 2. Improve pelvic floor endurance to 10 seconds to decrease symptoms of POP and incontinence Target Visit 5 PT Problem 4 PT Problem #4 Impaired Functional ADLs PT Goal 1 Goal / Goal Update 1. Patient will be able to hold urge to void at least 30 minutes 2. Patient will report no incontinence for at least 2 weeks Target Visit 5
--- NOTE | 2025-01-28 13:57 | PTOPEVAL1 ---
Assessment and note entered by uLisana Hartmann DPT Evaluation Information Assessment Status Evaluation ICD-10 Condition Codes (PT) Weakness R53.1,Pelvic and perineal pain R10.2,Urge incontinence N39.41,Separation of muscle ( nontraumatic) M62.08 Subjective Information Pt reports heaviness and pelvic pain that sometimes seems to be around her menstrual cycle. Pelvic pain is sometimes with intercourse, mild discomfort with tampon use and none with last pelvic exam. Previous pelvic floor PT for incontinence, thinks the pain has been for a few years. Voids about 10 times a day and usually none at night. Can hold urge for a few minutes at a time. Has had urge incontinence at times and wears a pantiliner almost daily. Incontinence is usually a couple times a month and sometimes has to change her clothes due to volume. Denies pain with urination. BM every other other day, which is pretty normal for her. Does get occasional constipation pain, no fecal incontinence. Pt has been 7 times, 5 deliveries which were all vaginal. Epiziotomy with her first and tears with others. Diagnosed with endometriosis, has been told she is perimenopausal. No b/b history. Patient goal: figure out the urinary urgency, prevent need for any kind of prolapse surgery, improve core strength overall Returns to MD in 1 year. Reported Pain Level Pain Score 0: Self Report Assessment PT Clinical Summary The patient is presenting to skilled therapy with a history of urge incontinence, pelvic pain, and signs/symptoms of pelvic organ prolapse. She presents with decreased pelvic floor strength and endurance, decreased hip and abdominal strength, and diastasis recti which are contributing to her pain, incontinence, and sense of heaviness. She will highly benefit from therapy to address impairments in order to reduce pain and incontinence and to restore full function. Plan of Care Interventions Manual Therapy,Neuro Re-education,Patient/ Caregiver Education,Therapeutic Activities, Therapeutic Exercise PT Services Indicated Yes Treatment Frequency and 1 time a week for 5 visits Duration These treatments will address the objective and functional deficits as defined above. The patient will be advanced safely and appropriately in order for the patient to progress towards his/her prior level of function. Additional exercises will be introduced and as well as a comprehensive home exercise program upon discharge, if needed, ?to ensure carryover of functional gains achieved in the clinic. This treatment plan has been reviewed and agreement upon by the patient.
--- NOTE | 2025-02-25 13:57 | PCPTNOTE ---
Patient called to cancel appointment 02/25/25 due to family emergency. Rescheduled to next week.
--- NOTE | 2025-03-04 13:14 | OPREHPOC ---
Outpatient Therapy Plan of Care This is a Multidisciplinary Plan of Care that may contain components documented by all disciplines (PT, OT, and ST.) PT Problem 1 PT Problem #1 Knowledge Deficit PT Goal 1 Goal / Goal Update 1. Patient will perform independent HEP 2. Patient will verbalize urge suppression strategies Target Visit 3 Progress Met PT Problem 2 PT Problem #2 Pain PT Goal 1 Goal / Goal Update 1. Patient will report no pelvic pain for 2 weeks update 03/04/25 1. still some discomfort around cycle Target Visit 9 Progress Partially Met PT Problem 3 PT Problem #3 Impaired Strength PT Goal 1 Goal / Goal Update 1. Improve pelvic floor strength to 4/5 to reduce symptoms of POP and incontinence 2. Improve pelvic floor endurance to 10 seconds to decrease symptoms of POP and incontinence update 03/04/25 1. improved to 3 2. met Target Visit 9 Progress Partially Met PT Problem 4 PT Problem #4 Impaired Functional ADLs PT Goal 1 Goal / Goal Update 1. Patient will be able to hold urge to void at least 30 minutes 2. Patient will report no incontinence for at least 2 weeks update 03/04/25 1. improved to 10 2. met Target Visit 5 Progress Partially Met
--- NOTE | 2025-03-04 13:14 | PTOPPROG ---
Assessment and note entered by Luisana Hartmann DPT Evaluation Information Assessment Status Progress ICD-10 Condition Codes (PT) Weakness R53.1,Pelvic and perineal pain R10.2,Urge incontinence N39.41,Separation of muscle ( nontraumatic) M62.08 Subjective Information Pt reports seeing progress in that her urgency has decreased. Has been able to hold up to 10 minutes but has been able to prevent urge incontinence. Voiding 8-9 times a day and 0 at night. No incontinence in the past 2 weeks. No recent discomfort with tampon use. Still noticing some heaviness around her cycle. Assessment PT Clinical Summary The patient has made good progress in therapy and reports decreased urgency and no incontinence for 2 weeks. She does continue to have difficulty holding urge past 10 minutes. She demonstrates improved hip and abdominal strength and closure of diastasis, as well as improved pelvic floor strength and endurance. Due to her progress but continued urgency, plan to continue skilled therapy to restore full function. Plan of Care Interventions Manual Therapy,Neuro Re-education,Patient/ Caregiver Education,Therapeutic Activities, Therapeutic Exercise PT Services Indicated Yes Treatment Frequency and 1 time a week for 4 visits Duration These treatments will address the objective and functional deficits as defined above. The patient will be advanced safely and appropriately in order for the patient to progress towards his/her prior level of function. Additional exercises will be introduced and as well as a comprehensive home exercise program upon discharge, if needed, ?to ensure carryover of functional gains achieved in the clinic. This treatment plan has been reviewed and agreement upon by the patient.
--- NOTE | 2025-04-22 15:09 | OPREHPOC ---
Outpatient Therapy Plan of Care This is a Multidisciplinary Plan of Care that may contain components documented by all disciplines (PT, OT, and ST.) PT Problem 1 PT Problem #1 Knowledge Deficit PT Goal 1 Goal / Goal Update 1. Patient will perform independent HEP 2. Patient will verbalize urge suppression strategies Target Visit 3 Progress Met PT Problem 2 PT Problem #2 Pain PT Goal 1 Goal / Goal Update 1. Patient will report no pelvic pain for 2 weeks update 03/04/25 1. still some discomfort around cycle Target Visit 9 Progress Met PT Problem 3 PT Problem #3 Impaired Strength PT Goal 1 Goal / Goal Update 1. Improve pelvic floor strength to 4/5 to reduce symptoms of POP and incontinence 2. Improve pelvic floor endurance to 10 seconds to decrease symptoms of POP and incontinence update 03/04/25, 04/22/25 1. improved to 3 2. met Target Visit 9 Progress Partially Met PT Problem 4 PT Problem #4 Impaired Functional ADLs PT Goal 1 Goal / Goal Update 1. Patient will be able to hold urge to void at least 30 minutes 2. Patient will report no incontinence for at least 2 weeks update 03/04/25 1. improved to 10 2. met update 04/22/25 1. improved to 15 Target Visit 9 Progress Partially Met
--- NOTE | 2025-04-22 15:10 | PTOPDC ---
Assessment and note entered by Luisana Hartmann DPT Evaluation Information Assessment Status Discharge ICD-10 Condition Codes (PT) Weakness R53.1,Pelvic and perineal pain R10.2,Urge incontinence N39.41,Separation of muscle ( nontraumatic) M62.08 Subjective Information Pt reports she is continuing to feel better, 1 instance of incontinence in the last month while holding to long to void while camping. Can hold urge to void up to 15 minutes. No discomfort with a tampon or heaviness around her cycle. Reported Pain Level Pain Score 0: Self Report Assessment PT Clinical Summary The patient has made excellent progress in therapy and reports only one instance of incontinence in the last month. She reports improved ability to hold urine before needing to void to 15 minutes and reports no discomfort with tampon use or pelvic heaviness. Due to her progress, plan to discharge to [facility] at this time. She has been educated to follow up with MD and/or PT as needed. Plan of Care PT Services Indicated No
== END 2025-04-23 11:54 | disposition home or self-care (01) ==
LOC: ANHPT 14:30
PROVIDERS: PCP Family Medicine; Visit Provider Nurse Practitioner
DX: R10.2 Pelvic and perineal pain (principal)
CPT/HCPCS: 97112; 97161; 97530

== ENCOUNTER 2025-05-06 18:49 | Emergency (ER) | payer BC, SELFPAY ==
--- OUTSIDE RECORDS SUMMARY | 2010-07-27 08:45 | XMS_ITS | Continuity of Care Document ---
Author Organization [facility] Address [address] [place] [address] [address] [place] [address] Phone Care Team Providers Care Certified Professional Coder Name Role Phone Hernandes OD, Faustino Unavailable Unavailable Procedures Procedure Date Contact Lens Check Contact Lens Check Eye Exam, New Patient Contact Lens Fitting, Medical Superv Jun Advance Directives Directive Yes / No Effective Date File Name No Information Encounters Encounter Description Practice Location Reason(s) For Visit Diagnoses Date Provider Providers Copied on Encounter [facility], [address] [place] [address] [address], [place], [place], [id number], [place] tel:[phone] [facility] No Information 3-201 0 Hernandes OD Faustino. [address] [facility] , [address], [place], [address], . tel:[phone] [facility], [address] [place] [address] [address], [place], [place], [id number], [place] tel:[phone] [facility] No Information Nov-0 2-201 0 Hernandes OD Faustino. [address] [facility] [address], [place], [address], [place]. tel:[phone] [facility], [address] [place] [address] [address], [place], [place], [id number], [place] tel:[phone] [facility] [place] No Information Jun- 6-201 0 Hernandes OD Faustino. [address] [facility] [address], [address], [place], [address], [place]. tel:[phone] Family History Family Member Type Diagnosis Age At Onset No Information Payers Payer name Insurance type Covered republican ID Authoriza tion(s) No Information Social History [...]
--- OUTSIDE RECORDS SUMMARY | 2017-11-10 09:11 | XMS_ITS | Continuity of Care Document ---
Author Organization [facility] Address [address] [place] [address] Phone Care Team Providers Care Market Master Name Role Phone Ronak Connelly MD Unavailable Unavailable Allergies, Adverse Reactions, Alerts Substance Reaction Status Criticality No Known Allergies Active No Inform ation Medications Medication Instructions Dosage Effective Dates (start - stop) Status Comments lansoprazole 30 mg capsule,delayed release take 1 capsule by oral route every 2 days before a meal 30 MG - Active Vitamin D2 50,000 unit capsule take 1 capsule by oral route every week - Active Advance Directives Directive Yes / No Effective Date File Name No Information Encounters Encounter Description Practice Location Reason(s) For Visit Diagnoses Date Provider Providers Copied on Encounter [facility], [address], [place], [place], [id number] , tel: [phone] [facility] No Information 8 Maricel Simons. [address], [address], [place], [address], [place]. tel: [phone] [facility], [address], [place], [place], [address] , tel: [phone] [facility] Abnormal CT scan, gastrointestinal tractEpigastric abdominal painGastroesophage al reflux disease without esophagitisConstip ation, unspecified constipation typeUmbilical hernia without obstruction and without gangrene 8 Maricel Simons. [address], [address], [place], [address], [place]. tel: [phone] Referring Provider: Ronak Connelly [address], [place], [address]. tel:[phone] [facility], [address], [place], [place], [address] , tel: [phone] [facility] No Information 8 Maricel Simons. [address], [address], [place], [address], [place]. tel: [phone] [facility], [address], [place], [place], [address] , tel: [phone] [facility] Gastroesophageal reflux disease, esophagitis presence not specifiedEpigastri c abdominal pain 7 Maricel Simons. [address], [address], [place], [address], [place]. tel: [phone] Referring Provider: Sabina Klein, [address] [place], [address]. tel:[phone] Family History Family Member Type Diagnosis Age At Onset Problem (finding) Hiatal hernia Problem (finding) Payers Payer name Insurance type Covered republican ID Authoriza tion(s) BCBS INACTIVE OUT OF STATE [id number] Social History Type Description Quantity Date Captured Comments Alcohol Use Details Unknown Caffeine Use Details Unknown Tobacco Use Status No Information Smoking Status No Information Sex Female Chief Complaint And Reason For Visit No [...]
--- OUTSIDE RECORDS SUMMARY | 2025-05-06 18:52 | XMS_ITS | Clinical Summary ---
Author Organization [facility] Address [address] [place] [address] Care Team Providers Care Pipe Line Maintenance Supervisor Name Role Phone Sabina lKein MD Primary Care Provider [phone] Source Comments [facility],non-owned Affiliates and Associated Physician Practices is amultiple site organization consisting of ambulatory clinics and hospital sitesin [place], [place], [place] and [place]. This disclosure is being madepursuant to the Care Everywhere program and may not contain all information available regarding this patient. Last updated 18.[facility] Allergies No known active allergies Medications * Be aware that medications may not be up to date on this document. Alwaysverify current medications with the patient. No known medications Active Problems Problem Noted Date Diagnosed Date MOB w/ spina bifida occulta 10/01/2013 Spina bifida occulta-Maternal 09/23/2013 Supervision of other high-risk 014 Overview (07/12/2015): Family History Medical History Relation Name Comments Cancer Father Diabetes Father Hypertension Father Cancer Mother Relation Name Status Comments Father Mother Social History Tobacco Use Types Packs/Day Years Used Date Smoking Tobacco: Never Smokeless Tobacco: Never Comments No Sex and Gender Information Value Date Recorded Sex Assigned at Not on file Legal Sex Female 2:56 PM CDT Gender Identity Not on file Sexual Orientation Not on file Last Filed Vital Signs Vital Sign Reading Time Taken Comments Blood Pressure 110/64 07/04/2017 3:36 PM CDT Pulse 71 07/04/2017 3:36 PM CDT Temperature 37.3 C (99.2 F) 07/04/2017 3:36 PM CDT Respiratory Rate 16 07/04/2017 3:36 PM CDT Oxygen Saturation - - Inhaled Oxygen Concentration - - Weight 64 kg (141 lb) 07/04/2017 3:36 PM CDT Height 162.6 cm (5' 4) 07/04/2017 3:36 PM CDT Body Mass Index 24.2 07/04/2017 3:36 PM CDT Plan of Treatment Health Maintenance Due Date Last Done Comments LIPID TESTING 1980 MAMMOGRAM 1980 HIV SCREENING 1995 HEPATITIS C SCREENING 06/08/1998 DTAP/TDAP/TD VACCINES (1 - Tdap) 1999 HEPATITIS B VACCINE (1 of 3 - 19+ 3-dose series) 1999 PAP SMEAR 2001 HPV VACCINE (1 - 3-dose SCDM series) 2007 COVID-19 VACCINE (1 - 2023-2 5 season) 2024 DEPRESSION SCREENING 09/04/2024 INFLUENZA VACCINE (#1) 2025 ZOSTER VACCINE (1 of 2) 2030 HIB VACCINE Aged Out No longer eligi ble based on patient's age to complete this topic MENINGOCOCCAL (Group B) VACC INE SHARED DECISION-MAKING Aged Out No longer eligibl e based on patient's age to complete this topic MENINGOCOCCAL GROUPS A/C/Y/W VACCINE Aged Out No longer eligible b ased on patient's age to complete this topic PNEUMOCOCCAL VACCINE Aged Out No long er eligible based on patient's age to complete this topic Insurance FIDE [facility] Care Teams Pipe Line Maintenance Supervisor Relationship Specialty Start Date End Date Sabina Klein MD [address] [place] [address] PCP - General Family Medicine 07/04/17
--- OUTSIDE RECORDS SUMMARY | 2025-05-06 18:52 | XMS_ITS | Encounter Summary ---
Author Organization [facility] Address [address] [place] [address] Care Team Providers Care Manager Payroll Name Role Phone Unavailable Primary Care Provider Unavailabl e Prior Encounters Date Type Department Care Team Description 09/23/2019 Converted CPS Chart Documents [facility] [address] [place] [address] <No scans attached> 09/23/2019 Converted 13x Documents [facility] [address] [place] [address] <No scans attached> Plan of Treatment Not on file Procedures Procedure Name Priority Date/Time Associated Diagnosis Comments 28 REMOVAL OF RESIDUAL TOOTH ROOTS (CUTTING PROCEDURE) Routine 09/30/2020 2:00 AM METAL FILER OS CONSULT Routine 08/19/2020 2:00 AM METAL FILER Visit Diagnoses Not on file
--- OUTSIDE RECORDS SUMMARY | 2025-05-06 18:52 | XMS_ITS | Clinical Summary ---
Author Organization [facility] Address [address] [place] [address] Care Team Providers Care Associate Professor Of Counseling Name Role Phone Unavailable Primary Care Provider Unavailabl e Social History Tobacco Use Types Packs/Day Years Used Date Smoking Tobacco: Never Assessed Comments Unknown Sex and Gender Information Value Date Recorded Sex Assigned at Not on file Legal Sex Female 8:29 PM CDT Gender Identity Not on file Sexual Orientation Not on file Plan of Treatment Health Maintenance Due Date Last Done Comments Cervical Cancer Screening Pa p Smear (Age 30 to 64) Every 3 Years 1980 Annual Physical 1983 Hepatitis C 1998 DTaP, Tdap and Td Vaccines ( 1 - Tdap) 1999 Hepatitis B Vaccines (1 of 3 - 19+ 3-dose series) 1999 HPV Vaccines (1 - 3-dose SCD M series) 2007 Cervical Cancer Screening Pa p with HPV Testing (Age 30 to 64) Every 5 Years 2010 Cervical Cancer Screening with HPV 2010 Mammogram Screening 2020 COVID-19 Vaccine (2023-2 5 season) 2024 Meningococcal B Vaccine Aged Out No l onger eligible based on patient's age to complete this topic Meningococcal Vaccine Aged Out No pete dion eligible based on patient's age to complete this topic Pneumococcal Vaccine: Pediat rics (0 to 5 Years) and At-Risk Patients (6 to 49 Years) Aged Out No longer eligible b ased on patient's age to complete this topic RSV Immunizations Under 20 Months Aged Out No longer eligible based on patient's age to complete this topic
--- OUTSIDE RECORDS SUMMARY | 2025-05-06 18:53 | XMS_ITS | Clinical Summary ---
Author Organization [facility] Address [address] [place] [address] Care Team Providers Care Manufacturing Technology Professor Name Role Phone Sabina Klein MD Primary Care Provider [phone] Gio Ybarra MD Unavailable [phone] Allergies No known active allergies Medications estradioL (ESTRACE) 1 mg tablet Take 1 tablet (1 mg total) by mouth daily 02/13/2024 Active progesterone (PROMETRIUM) 100 mg capsule Take 1 capsule (100 mg total) by mouth daily 01/28/2024 Active estradioL (ESTRACE) 0.5 mg tablet Take 1 tablet (0.5 mg total) by mouth daily 01/03/2024 Active metFORMIN XR (GLUCOPHAGE XR) 500 mg 24 hr tablet Take 1 tablet (500 mg total) by mouth 07/30/2024 Active benzonatate (TESSALON) 100 mg capsuleIndicati ons:Cough Take 1 capsule (100 mg total) by mouth 3 (three) times a day as needed for cough 21 capsule 09/10/2024 Active Active Problems Problem Noted Date Diagnosed Date Screening for diabetes mellitus 08/01/2023 Celiac disease 06/29/2023 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 Other fatigue 03/27/2023 Dizzy spells 03/27/2023 Thyroid nodule 03/27/2023 Surgical History Surgery Date Site/Laterality Comments LAPAROSCOPIC ENDOMETRIOSIS FULGURATION 09/04/2006 - 08/06 SINUS SURGERY Medical History Medical History Date Comments Endometriosis Vitamin D deficiency Gestational diabetes Hyperglycemia Blood sugar is high in am, I am not diabetic or prediabetic Family History Medical History Relation Name Comments No Known Problems Brother 1 No Known Problems Brother 2 No Known Problems Brother 3 No Known Problems Brother 4 Stomach surgery Brother 5 No Known Problems Daughter 1 No Known Problems Daughter 2 No Known Problems Daughter 3 Diabetes Father Lymphoma Father Follicular Skin cancer Father Esophageal stricture Maternal Grandfather Colon cancer Maternal Grandmother Breast cancer Mother Thyroid cancer Mother Medullary Lung cancer Sister Thyroid cancer Sister Papillary No Known Problems Son 1 No Known Problems Son 2 Celiac disease Neg Hx Diabetes type I Neg Hx Inflammatory bowel disease Neg Hx Stomach cancer Neg Hx Relation Name Status Comments Brother 1 Alive Brother 2 Alive Brother 3 Alive Brother 4 Alive Brother 5 Alive Daughter 1 Alive Daughter 2 Alive Daughter 3 Alive Father Maternal Grandfather Maternal Grandmother Mother Sister Alive Son 1 Alive Son 2 Alive Social History Tobacco Use Types Packs/Day Years Used Date Smoking Tobacco: Former Cigarettes 1 10 0 09/04/1995 - 08/04/2005 Smokeless Tobacco: Never Tobacco Cessation:Counseling Given: Not Answered AUDIT-C Answer Date Recorded Q1: How often do you have a drink containing alc ohol? Never 07/25/2023 Average Number of Drinks Not on file 023 Frequency of Binge Drinking Not on file 07/06 Personal Safety Answer Date Recorded Have you ever been in or are you currently in a harmful physical or emotional relationship or is someone making you feel afraid or unsafe? 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 Gender Identity Female 03/27/2023 10:41 AM CDT Sexual Orientation Straight 03/27/2023 10 :41 AM CDT Obstetrics History Last Filed Vital Signs Vital Sign Reading Time Taken Comments Blood Pressure 122/82 09/10/2024 8:14 AM FARM PL[employer]NER Pulse 98 09/10/2024 8:14 AM FARM PLANNER Temperature 37.7 C (99.9 F) 09/10/2024 8:14 AM FARM PLANNER Respiratory Rate 18 09/10/2024 8:14 AM FARM PL[employer]NER Oxygen Saturation 99% 09/10/2024 8:14 AM FARM PL[employer]NER Inhaled Oxygen Concentration - - Weight 79.3 kg (174 lb 14.4 oz) 09/10/2024 8:14 AM FARM PL[employer]NER Height 162.6 cm (5' 4.02) 09/10/2024 8:14 AM CS T Body Mass Index 30.01 09/10/2024 8:14 AM FARM PLANNER Plan of Treatment Health Maintenance Due Date Last Done Comments Cervical Cancer Screening 1980 Depression Screening 1980 Hepatitis C Screening 1980 Varicella Vaccines (1 of 2 - 13+ 2-dose series) 1993 Regular Well Visit/Exam 18-64 1998 HPV Vaccines (1 - 3-dose SCDM series) 2007 DTaP/Tdap/Td Vaccine (2 - Td or Tdap) 02/08/2024 02/07/2014 Breast Cancer Screening-Mammogram 12/19/2024 12/20/2023, 03/17/2022, 04/02/2021 Influenza Vaccine (#1) 2025 0, 06/25/2018, 08/29/2017, Additional history exists Hepatitis B Screening Completed 10/17/2019 Pneumococcal vaccine <65 Aged Out No longer eligible based on patient's age to complete this topic Procedures Procedure Name Priority Date/Time Associated Diagnosis Comments DIAGNOSTIC MAMMOGRAM BILATERAL W ROMÁN Schedule Routine, Read Routine (OP Routine) 12/20/2023 9:23 AM CDT Localized enlarged lymph nodes from Last 3 Months or Most Recently Relevant to Health Maintenance Results * Diagnostic Mammogram Bilateral W Román (12/20/2023 9:23 AM CDT) Anatomical Region Laterality Modality Breast Bilateral Mammography 12/20/2023 10:3 5 AM CDT Impressions 12/20/2023 10:35 AM CDT 1. No mammographic evidence of malignancy in either breast. 2. Area of right axillary pain corresponds to the accessory breast tissue. Patient was provided with breast surgery clinic contact information given worsening symptoms. OVERALL FINAL ASSESSMENT: BI-RADS Category 2: Benign. RECOMMENDATION: 1. Annual screening mammography is recommended. 2. Clinical follow-up is recommended. Electronically signed by: Milo Dinero 12/20/2023 10:35 AM CDT EXAMINATION: BILATERAL DIGITAL DIAGNOSTIC MAMMOGRAM INCLUDING CAD AND BILATERAL DIGITAL BREAST TOMOSYNTHESIS; RIGHT BREAST SONOGRAM HISTORY: 43-year-old woman presenting for evaluation of worsening right axillary pain. Previous diagnostic evaluation in 2021 demonstrated accessory breast tissue in the right axilla. COMPARISON: 03/17/2022 and 04/02/2021 TECHNIQUE: Full field digital mammographic views of BOTH breasts were performed, including computer aided detection (CAD) and BILATERAL digital breast tomosynthesis (DBT). Directed ultrasound evaluation of the RIGHT breast was performed. BREAST PARENCHYMAL COMPOSITION: The breasts are heterogenously dense, which may obscure small masses. MAMMOGRAM FINDINGS: There is no suspicious mass, calcification, or distortion in either breast. Accessory breast tissue is again seen in the right axilla. SONOGRAM FINDINGS: Targeted sonographic evaluation of the right axilla was performed in the area of pain. There is accessory fibroglandular breast tissue in the right axilla without suspicious sonographic abnormality. Multiple morphologically benign right axillary lymph nodes are imaged. Procedure Note Milo Amado MD - 12/20/2023 EXAMINATION: BILATERAL DIGITAL DIAGNOSTIC MAMMOGRAM INCLUDING CAD AND BILATERAL DIGITAL BREAST TOMOSYNTHESIS; RIGHT BREAST SONOGRAM HISTORY: 43-year-old woman presenting for evaluation of worsening right axillary pain. Previous diagnostic evaluation in 2021 demonstrated accessory breast tissue in the right axilla. COMPARISON: 03/17/2022 and 04/02/2021 TECHNIQUE: Full field digital mammographic views of BOTH breasts were performed, including computer aided detection (CAD) and BILATERAL digital breast tomosynthesis (DBT). Directed ultrasound evaluation of the RIGHT breast was performed. BREAST PARENCHYMAL COMPOSITION: The breasts are heterogenously dense, which may obscure small masses. MAMMOGRAM FINDINGS: There is no suspicious mass, calcification, or distortion in either breast. Accessory breast tissue is again seen in the right axilla. SONOGRAM FINDINGS: Targeted sonographic evaluation of the right axilla was performed in the area of pain. There is accessory fibroglandular breast tissue in the right axilla without suspicious sonographic abnormality. Multiple morphologically benign right axillary lymph nodes are imaged. IMPRESSION: 1. No mammographic evidence of malignancy in either breast. 2. Area of right axillary pain corresponds to the accessory breast tissue. Patient was provided with breast surgery clinic contact information given worsening symptoms. OVERALL FINAL ASSESSMENT: BI-RADS Category 2: Benign. RECOMMENDATION: 1. Annual screening mammography is recommended. 2. Clinical follow-up is recommended. Electronically signed by: Milo Amado Ashia Howard NP IMG MAMMO PROCEDURES Fi nal Result from Last 3 Months or Most Recently Relevant to Health Maintenance Insurance [employer] [place] [employer] [place] [facility] Advance Directives For more information, please contact: [phone] * Full Code (Latest Code Status on File) Date Activated Date Inactivated Comments 07/25/2023 8:03 AM 07/25/2023 2:20 PM Care Teams Manufacturing Technology Professor Relationship Specialty Start Date End Date Sabina Klein MD PCP - General 07/31/17 Gio Ybarra MD [address] [place] [address] Referring Physician Obstetrics and Gynecology 12/27/23
[2025-05-06 19:04] VITALS: BP 136/76; PULSE 77; RESP 18; TEMP 36.8; O2SAT 100
--- NOTE | 2025-05-06 19:28 | ED.URI ---
HPI - URI/Sore Throat General Chief Complaint: Upper Respiratory Infection Stated Complaint: heart beating fast/cough Time Seen by Provider: 05/06/25 19:25 Source: patient and RN notes reviewed Mode of arrival: ambulatory Limitations: no limitations History of Present Illness HPI Narrative: 44-year-old female presents Express Care complaining of upper respiratory symptoms for approximately 9 days. Patient reports congestion and dry nonproductive cough has not gotten much better. Patient denies any sore throat, runny nose, earache, chest pain, shortness of breath, nausea vomiting, diarrhea, body aches, chills, fevers or any other symptoms. Patient has not tried anything [id number] to help with symptoms. Patient denies any smoking history. Related Data Home Medications ?Medication ?Instructions ?Recorded ?Confirmed ?Last Taken ?Type estradiol 0.075 mg/24 hr 05/06/25 Unknown History semiweekly transdermal patch progesterone micronized 100 mg mg 05/06/25 Unknown History capsule propranolol 10 mg tablet mg 05/06/25 Unknown History Allergies Allergy/AdvReac Type Severity Reaction Status Date / Time No Known Allergies Allergy Verified 05/06/25 18:56 Review of Systems Review of Systems: CONSTITUTIONAL: Denies fever, chills, body aches, or sweats. EYES: Denies visual changes, redness, or discharge. ENT: Positive congestion. Negative for rhinorrhea, sore throat, or otalgia. CARDIOVASCULAR: Denies chest pain, palpitations, dizziness, lightheadedness or edema. RESPIRATORY: Positive for cough. Negative for dyspnea or wheezing. GASTROINTESTINAL: Denies abdominal pain, nausea, vomiting, or diarrhea. GENITOURINARY: Denies dysuria or hematuria. SKIN: Denies rash or itching. MUSCULOSKELETAL: Denies back pain, joint pain, or myalgia. NEUROLOGIC: Denies headache, numbness, or weakness. PSYCHIATRIC: Denies anxiety or depression. All other systems reviewed are negative, except as documented in HPI. [facility] Past Medical History Medical History Flory's disease Surgical History Surgical History H/O sinus surgery Hx of laparoscopy Family History Family History Mother Family history of malignant neoplasm of breast in first degree relative Patient's mother is in good health Father Patient's father is in good health Social History Social History Smoking packs per day: 1 Smoking cigarettes per day: 20.0 Years smoked: 8 Smoking pack-years: 8.00 Smoking status: Former smoker Second hand tobacco smoke exposure: No Smoking end date: 09/04/04 Alcohol intake: never Substance use: never Substance use type: does not use Lack of Transportation: No Lack of Food: Never True Current Housing: I Have Housing Concerned About Future Housing: No Difficulty Paying Gas/Electric Bills: No Difficulty Paying for Meds: No Currently Unemployed: No Education: Bachelor's Degree Difficulty w/ Childcare or Family Care: No Living arrangements: with family Occupation/Education: occupation Gender identity (if verbalized by the patient): Female Spiritual care concerns: No Agree to blood products: Yes Comments At the time of my signature, I reviewed and agree with the nursing past medical, surgical, social, and family history. There is no relevant family history pertinent to the patient complaint. Exam Narrative: GENERAL: This is a well-nourished, well-developed adult, in no apparent distress. They are non ill-appearing, nontoxic appearing. HEAD: normocephalic, atraumatic. EYES: Sclera clear/white. Vision is grossly intact. Conjunctiva normal bilaterally. Extraocular movements intact. EARS: External ears normal, auditory canals clear and without drainage, TMs without erythema or perforation. Hearing grossly intact. NOSE: External nose normal with no obvious nasal discharge, nasal turbinates erythematous with exudate present. No rhinorrhea. THROAT: Mucous membranes moist, posterior pharynx clear without redness or swelling. Uvula is midline. Postnasal drip present. NECK: Neck supple, non-tender without lymphadenopathy, masses or thyromegaly. CARDIOVASCULAR: Regular rate and rhythm without murmurs, gallops, or rubs. RESPIRATORY: Clear to auscultation. Breath sounds equal bilaterally. No wheezes, rales, or rhonchi. SKIN: warm, Dry, intact with no suspicious lesions or rash, good texture and turgor. NEURO: awake, alert, and oriented to person, place and time. There were no obvious focal neurologic abnormalities. EXTREMITIES: No joint tenderness, effusion, or edema noted. BACK: Nontender without deformity. Course Course Emergency Course: Portions of this record may have been created with voice recognition software Level of Care: Express Care Visit Vital Signs Vital signs: Vital Signs Temperature 98.2 F 05/06/25 19:04 Pulse Rate 77 05/06/25 19:04 Respiratory Rate 18 05/06/25 19:04 Blood Pressure 136/76 05/06/25 19:04 Pulse Oximetry 100 05/06/25 19:04 Oxygen Delivery Room Air 05/06/25 19:04 Temperature 98.2 F 05/06/25 19:04 Pulse Rate 77 05/06/25 19:04 Respiratory Rate 18 05/06/25 19:04 Blood Pressure 136/76 05/06/25 19:04 Pulse Oximetry 100 05/06/25 19:04 Oxygen Delivery Room Air 05/06/25 19:04 MDM - URI/Sore Throat MDM Narrative Medical decision making narrative: Given patient's like the symptoms is likely she has developed a bacterial sinusitis. Will treat her with Augmentin. Discussed physical exam findings. Advised supportive measures and signs/symptoms to go to the ER. Pt is appropriate for outpt treatment and f/u. Differential Diagnosis Differential diagnosis: Likely upper respiratory infection, sinusitis and viral infection Discharge Plan Discharge Clinical Impression: Sinusitis Qualifiers: Sinusitis location: unspecified location Chronicity: acute Recurrence: non-recurrent Qualified Code(s): J01.90 - Acute sinusitis, unspecified Patient Disposition: Home Condition: Stable Instructions: Antibiotic Form, Sinusitis (ED) Additional Instructions: Take the antibiotics as directed and complete the course even if you start to feel better. You may use a Neti pot saline rinse 3 times a day with lukewarm distilled water Continue to take Tylenol or Motrin for pain. Follow the instructions on the bottle. Use a humidifier or vaporizer at night. Drink plenty of water. 8-10 glasses per day. Use flonase 2 times per day for 5 days then as needed Take mucinex 2 times per day and be sure to take with 8oz of water. Follow up with Primary provider in 3-5 days Please go to the ER if he develops any difficulty breathing, chest pains, worsening symptoms, or any other concerns Patient Language: Azeri Prescriptions: New amoxicillin-pot clavulanate 875-125 mg tablet 1 tablet PO Q12H 7 Days Qty: 14 0RF No Action estradiol 0.075 mg/24 hr patch semiweekly propranolol 10 mg tablet progesterone micronized 100 mg capsule escitalopram oxalate 10 mg tablet 10 mg PO DAILY Qty: 30 4RF Follow-up/Referrals: Sabina Klein MD [Primary Care Provider, [facility]] Time of Disposition: 19:31
== END 2025-05-06 19:32 | disposition home or self-care (01) ==
PROVIDERS: PCP Family Medicine
DX: J01.90 Acute sinusitis, unspecified (principal); E06.3 Autoimmune thyroiditis; Z87.891 Personal history of nicotine dependence
CPT/HCPCS: 99213; G0463

== ENCOUNTER 2025-07-16 01:32 | Day surgery (SDC) | payer BC, SELFPAY ==
--- OUTSIDE RECORDS SUMMARY | 2010-07-27 07:45 | XMS_ITS | Continuity of Care Document ---
Author Organization [facility] Address [address] [place] [address] [address] [place] [address] Phone Care Team Providers Care Nissan Sales Consultant Name Role Phone Hernandes OD, Faustino Unavailable Unavailable Procedures Procedure Date Contact Lens Check Contact Lens Check Eye Exam, New Patient Contact Lens Fitting, Medical Superv Jun Advance Directives Directive Yes / No Effective Date File Name No Information Encounters Encounter Description Practice Location Reason(s) For Visit Diagnoses Date Provider Providers Copied on Encounter [facility], [address] [place] [address] [address], [place], [place], [id number], [place] tel:[phone] [facility] No Information 3-201 0 Hernandes OD Faustino. [address] , [address], [place], [address], . tel:[phone] [facility], [address] [place] [address] [address], [place], [place], [id number], [place] tel:[phone] [facility] No Information Nov-0 2-201 0 Hernandes OD Faustino. [address], [place], [address], [place]. tel:[phone] [facility], [address] [place] [address] [address], [place], [place], [id number], [place] tel:[phone] [facility] No Information Jun- 6-201 0 Hernandes OD Faustino. [address], [place], [address], [place]. tel:[phone] Family History Family Member Type Diagnosis Age At Onset No Information Payers Payer name Insurance type Covered green party ID Authoriza tion(s) No Information Social History Type Description Quantity Date Captured Comments Sex Female Smoking Status No Information Chief Complaint And Reason For Visit No Information Reason For Referral Reason For Referral No Information History Of Present Illness Encounter Date Complaint History Of Prese nt Illness No Information Functional Status Date Functional Assessmen t No Information Instructions Date Instruction Additional Infor mation No Information Assessments Type Assessment Date No Information Patient Care Teams Name Effective Dates (start - stop) Status Members No Information
--- OUTSIDE RECORDS SUMMARY | 2024-07-20 15:00 | XMS_ITS ---
Author Organization [facility] Address [address] [place] [address] Care Team Providers Care Classics Teacher Name Role Phone Jessica Catalan Primary Care Provider [phone] Migration, Provider Unavailable Unavailable REASON FOR VISIT Multum To Medispan Conversion Encounter Medications Medication SIG (Take, Route, Frequency, Duration) Notes Start Date End Date Status Progesterone 100 MG Capsule TAKE 1 CAPSU LE BY MOUTH EVERY DAY DIRECTED; Duration: 30 Days Active metFORMIN HCl ER 500 MG Tablet Extended Release 24 Hour TAKE 1 TABLET BY MOUTH DAILY WITH LARGEST MEAL; Duration: 90 Active Estradiol 0.5 MG Tablet TAKE 1 TABLET BY MOUTH EVERY DAY DIRECTED; Duration: 30 Days Active Encounters Encounter Location Date Provider Diagnosis [address] [phone] 07/20/2024 Provider Migration Plan Of Treatment Next Appt Details Provider Name:Jessica Catalan, 12:40:00 PM, [address] [place] [address], [phone], Progress Notes * Sally LYONSDOB: [birth year] (45 yo F)Acc No.[id number]:07/20/2024 Patient: Sally Sharp Provider: Terrell moss Migration :1980 A ge:44 Y S ex:Female Date:07/20/2024 Address:[address], [place], [place] Pcp:Jessica Catalan Subjective: * Chief Complaints: * M ultum To Medispan Conversion Encounter * Medications: T akingEstradiol 0.5 MG Tablet TAKE 1 TABLET BY MOUTH EVERY DAY DIRECTED Progesterone 100 MG Capsule TAKE 1 CAPSULE BY MOUTH EVERY DAY DIRECTED metFORMIN HCl ER 500 MG Tablet Extended Release 24 Hour TAKE 1 TABLET BY MOUTH DAILY WITH LARGEST MEAL Taking Estradiol 0.5 MG Tablet TAKE 1 TABLET BY MOUTH EVERY DAY DIRECTED Taking Progesterone 100 MG Capsule TAKE 1 CAPSULE BY MOUTH EVERY DAY DIRECTED Taking metFORMIN HCl ER 500 MG Tablet Extended Release 24 Hour TAKE 1 TABLET BY MOUTH DAILY WITH LARGEST MEAL * Electronic signature of Prov edmond Migration on 07/16/2025 at 01:36 AM ANODIZER Sign off status: Pending * Provider: Terrell moss Migration Date: 09/19/2023 Generated for Frankie dubon/Pietro/Clarence on: 09/15/2024 01:36 AM ANODIZER
--- OUTSIDE RECORDS SUMMARY | 2024-11-05 04:00 | XMS_ITS ---
Author Organization [facility] Address [address] [place], [place] [address] Care Team Providers Care Bridge Club Manager Name Role Phone Jessica Catalan Primary Care Provider REASON FOR VISIT Thyroid FU Encounters Encounter Location Date Provider Diagnosis [facility] Dr. Catalan [address] [place] [phone] 11/05/2024 Jessica Catalan Plan Of Treatment Next Appt Details Provider Name:Jessica Catalan, 12:40:00 PM, [address] [place] [address], [phone], Progress Notes * Sally LYONSDOB: [birth year] (45 yo F)Acc No.[id number]:11/05/2024 Progress Notes Patient: Sally Sharp Provider: Alfonso Catalan MD :1980 A ge:44 Y S ex:Female Date:11/05/2024 Address:[address] [place], [place] [address] [facility] Subjective: * Chief Complaints: * T hyroid FU * Electronic signature of Ezio Catalan MD on 07/16/2025 at 01:36 AM CAN STACKER Sign off status: Pending * Provider: Alfonso Catalan MD Date: 0 11/05/2024 Generated for Bharathii ng/Famarling/eTransmitting on: 09/15/2024 01:36 AM CAN STACKER
--- OUTSIDE RECORDS SUMMARY | 2024-12-24 04:00 | XMS_ITS ---
Author Organization [facility] Address [address] [place], [place] [address] Care Team Providers Care Roller Turner Name Role Phone Jessica Catalan Primary Care Provider REASON FOR VISIT 6 week fu Encounters Encounter Location Date Provider Diagnosis [facility] Dr. Catalan [address] [place] [phone] 12/24/2024 Jessica Catalan Plan Of Treatment Next Appt Details Provider Name:Jessica Catalan, 12:40:00 PM, [address] [place] [address], [phone], Progress Notes * SERENAKelseyluis albertoDOB: [birth year] (45 yo F)Acc No.[id number]:12/24/2024 Progress Notes Patient: Sally Sharp Provider: Alfonso Catalan MD :1980 A ge:44 Y S ex:Female Date:12/24/2024 Address:[address] [place], [place] [address] [facility] Subjective: * Chief Complaints: * 6 week fu * Electronic signature of Ezio Catalan MD on 07/16/2025 at 01:36 AM MANAGER ORDER Sign off status: Pending * Provider: Alfonso Catalan MD Date: 0 12/24/2024 Generated for Frankie ng/Fasavage/eTransmitting on: 09/15/2024 01:36 AM MANAGER ORDER
--- OUTSIDE RECORDS SUMMARY | 2025-04-17 05:20 | XMS_ITS ---
Author Organization [facility] Address [address] [place], [place] [address] Care Team Providers Care Engineering Teacher Name Role Phone Jessica Catalan Primary Care Provider REASON FOR VISIT 2 month f/u Encounters Encounter Location Date Provider Diagnosis [facility] Dr. Catalan [address] [place] [phone] 04/17/2025 Jessica Catalan Plan Of Treatment Next Appt Details Provider Name:Jessica Catalan, 12:40:00 PM, [address] [address], [phone], Progress Notes * SERENASallyDOB: [birth year] (45 yo F)Acc No.[id number]:04/17/2025 Progress Notes Patient: Sally Sharp Provider: Alfonso Catalan MD :1980 A ge:44 Y S ex:Female Date:04/17/2025 Address:[address] [place], [place] [address] [facility] Subjective: * Chief Complaints: * 2 month f/u * Electronic signature of Ezio Catalan MD on 07/16/2025 at 01:36 AM CANDY FEEDER Sign off status: Pending * Provider: Alfonso Catalan MD Date: 0 04/17/2025 Generated for Bharathii ng/Famarling/eTransmitting on: 09/15/2024 01:36 AM CANDY FEEDER
[2025-07-03 14:59] VITALS: BMI 29.1
--- OUTSIDE RECORDS SUMMARY | 2025-07-16 01:36 | XMS_ITS | Encounter Summary ---
Author Organization [facility] Address [address] [place] [address] Care Team Providers Care Compensation Business Partner Name Role Phone Unavailable Primary Care Provider Unavailabl e Prior Encounters Date Type Department Care Team Description 09/23/2019 Converted CPS Chart Documents [facility] [address] [place] [address] <No scans attached> 09/23/2019 Converted 13x Documents [facility] [address] [place] [address] <No scans attached> Plan of Treatment Not on file Procedures Procedure Name Priority Date/Time Associated Diagnosis Comments 28 REMOVAL OF RESIDUAL TOOTH ROOTS (CUTTING PROCEDURE) Routine 09/30/2020 2:00 AM TECHNICAL PRODUCER OS CONSULT Routine 08/19/2020 2:00 AM TECHNICAL PRODUCER Visit Diagnoses Not on file
--- OUTSIDE RECORDS SUMMARY | 2025-07-16 01:36 | XMS_ITS | Clinical Summary ---
Author Organization [facility] Address [address] [place] [id number] Care Team Providers Care Dental Hygiene Administrative Assistant Name Role Phone Unavailable Primary Care Provider [...] 30 to 64) Every 3 Years 1980 Colorectal Cancer Screening Colonoscopy (10 Years) 1980 Annual Physical 1983 Hepatitis C 1998 [...] HPV 2010 Mammogram Screening 2020 COVID-19 Vaccine (2024-2 6 season) 2025 Influenza Adult (#1) 2025 Hepatitis A Vaccines Aged Out No long er eligible based on patient's age to complete this topic Meningococcal B Vaccine Aged Out No l [...]
--- OUTSIDE RECORDS SUMMARY | 2025-07-16 01:36 | XMS_ITS | Data Portability ---
Author Organization [facility] Address [address] [place] [address] [place] [address] Care Team Providers Care Remedial Reading Teacher Name Role Phone NIRMALA KOO Primary Care Provider Assessment Encounter Date Assessment Date Assessment LastModified by Organization Details LastModified Time 12/26/2024 12/26/2024 Annual gynecological exam performed. Patient will come back in a year unless there are new symptoms. [email or web address] Not available 12/26/2024 09:29:15 Plan of Treatment Reminders Order Date Submit Date Provider Last Modified By Organization Details Last Modified Time Details Appointments None recorded. Lab pap, IG + HR HPV - HPV regardless but if HPV is positive need subtyping 16,18/45 2024 025 [facility] (Lab), [address], [place], [address], 14:12:42 urinalysis, dipstick 2024 [address]25 [id number], [address], [place], [address], 10:40:33 culture, urine 2024 025 [facility] (Lab), [address], [place], [address], 14:12:41 testosteron e free/testos terone total, ratio, serum 2024 025 [facility] (Lab), [address], [place], [address], 20:23:29 Referral gastroenter ologist referral 2024 [facility], [address], [address], [place], [address], 05:01:54 pelvic floor therapy referral 2024 [facility], [address], [place], [address], 05:01:54 Procedures None recorded. Surgeries None recorded. Imaging US, pelvis [address], [address], [address], [place], [address], 15:13:10 US, transvagina l 2024 [address], [address], [place], [address], 15:13:10 MAMMO, screening, digital, bilateral 2024 [facility] Scheduling, [address], [address], [place], [address], 5 04:03:23 Medication Orders progesteron e micronized 100 mg capsule 2024 025 [facility], [address] [place], [place], [id number], 5 14:45:11 Vivelle-Dot 0.075 mg/24 hr transdermal patch 2024 025 [facility], [address], [place], [id number], 5 16:44:23 propranolol 10 mg tablet 2024 025 [email or web address] [id number] [facility] #44371, [address], [place], [place], [id number], 5 19:44:55 Vivelle-Dot 0.05 mg/24 hr transdermal patch 2023 025 MITRA [facility] #84057, [address], [place], [place], [id number], 5 14:19:11 Patient TargetsNo targets recorded. Patient InstructionsNo instructions recorded. Reason for Referral Pelvic Floor Therapy Referra l for Pain in pelvis Referring Physician: Ashia Howard, HAMMERER TAB, Encounter Date: 12/26/2024 Diabetes Territory Manager Referral for Screening for malignant neoplasm of colon Referring Physician: Ashia Howard HAMMERER TAB, Encounter Date: 12/26/2024 Results Created Date Observation Date Name Description Value Unit Range Abnormal Flag Note LastModifiedBy Organization Detail LastModifiedTime 10/02/1910/02/2024 TESTO STERO NE, FREE( DIALY SIS) AND TOTAL (LC/M S/MS) testosterone , total 22 NG/dL 2-45 For addit ional infor lizzie waggoner e refer to http: //[facility] paul.que stdia gnost ics.c om/fa q/ Total Testo stero neLCM SMSFA Q165 (This link is being provi ded for infor chinmay nal/ educa dusty l purpo ses only. ) This test was galdino feldman and its turner tical perfo rmanc e maday cteri stics have been deter mined by [facility] Leoni cherelle [facility] [place]. It has not been clear ed or appro liana by the U.S. Food and Drug Admin istra tion. This assay has been valid ated pursu ant to the CLIA regul ation s and is used for clini charles purpo ses. Not Available [facility] (Lab) [address], [place], [address], 10/07/2024 20:23:28 10/02/19 25 10/02/2024 TESTO STERO NE, FREE( DIALY SIS) AND TOTAL (LC/M S/MS) testosterone , free 1.3 pg/mL 0.1-6. 4 This test was devdaisy feldman and its turner tical perfo rmanc e maday cteri stics have been deter mined by [facility] [place]. It has not been clear ed or appro liana by the U.S. Food and Drug Admin istra tion. This assay has been valid ated pursu ant to the CLIA regul ation s and is used for clini charles purpo ses. Perfo rming Organ izati on Infor chinmay n: Site ID: AMD Name: [facility] [facility] Addre ss: [id number] [facility] Prediculous [place], [place] Direc tor: Katie Centeno MD PhD Not Available [facility] (Lab) [address], [place], [address], 10/07/2024 20:23:28 12/27/19 25 12/26/2024 CULTU RE: URINE result report SEE RESULT S BELOW Test: Cultu re: Urine Speci men Sourc e: Urine - Clean Catch Speci men Type: Urine Speci men Date: 2024 1010 Resul t Date: 2024 0515 Resul t Statu s: Final resul t Abnor mal: No Resul ting Lab: [facility] [address] [address] Tel: CULTU RE ----- ----- ----- --- No growt h in 1 day (dete ction level of 10,00 0 colon ies / ml.) Not Available [facility] (Lab) [address], [place], [address], 12/30/2024 14:12:41 12/27/19 25 12/26/2024 IMAGE GUIDE D PAP AND HPV REGAR DLESS image guided Pap, HPV regardless of Pap result SEE RESULT S BELOW CASE REPOR T: Cytol ogy Gynec ologi charles Repor t Case: [id number] Autho kimberley cortes Provi melinda: Ashia Howard NP Colle cted: 12/26 1010 Order ing Locat ion: [place] Patho logjosé luis Cordovai liana: 12/27 0944 First Scree n: Adele Guerrero Speci men: Gideon cuenca Pap - Image d, Cervi x STATE MENT OF ADEQU ACY: Satis facto ry for evalu ation Trans forma tion zone compo nent prese nt ----- ----- ----- ----- ----- ----- ----- ----- ----- ----- ----- ----- ----- ----- ----- ----- ----- ---- FINAL DIAGN OSIS: Negat manasa for Intra epith elial Joe paul or Rafael levine ([facility]) . Elect connor cortes by Adele Guerrero on 2024 at 1308 CDT ----- ----- ----- ----- ----- ----- ----- ----- ----- ----- ----- ----- ----- ----- ----- ----- ----- ---- HPV RESUL TS: HPV mRNA E6/E7 : No HPV mRNA Detec kira NOTE: This high risk HPV mRNA assay detec ts fourt een high- risk HPV types (16, 18, 31, 33, 35, 39, 45, 51, 52, 56, 58, 59, 66, 68) witho ut diffe renti ation . COMME NT: This speci men was revie wed by a Cytot echno logis t and/o r Patho logis t (as indic ated in this repor t) after evalu ation using the Thinp rep Imagi ng Syste m. CLINI CHARLES INFOR MATIO N: Menst rual Statu s: LMP (if appli cable ): Clini charles Histo ry/Pr eviou s Pap: Type of Neopl eunice (if appli cable ): Signi fican t Clini charles Findi ngs: Other Histo ry: Hormo rakesh (if appli cable ): PAP EDUCA DUSTY L NOTE: The Pap Test is a scree joellen test with an inher ent false negat manasa rate. Liqui d-bas ed sampl ing may decre ase, but will not elimi lashae, false negat manasa resul ts. A negat manasa resul t does not precl ude the prese nce and/o r devel opmen t of disea se, since the prese nce of abnor mal cells in the sampl e depen ds on the locat ion of the lesio n and sampl ing techn ique. Wilfredo nued regul ar scree joellen is the best metho d of cance r preve ntion . If repor kira cytol ogic findi ng do not corre late with physi charles and/o r histo rical findi ngs, furth er inves tigat ion is recom haresh d, as clini cal andino nted. Not Available [facility] (Lab) [address], [place], [address], 12/30/2024 14:12:42 12/27/19 25 12/26/2024 urina lysis , dipst ick Leukocytes Trace Not Available [facility] [address], [place], [address], 12/26/2024 10:38:18 12/27/19 25 12/26/2024 urina lysis , dipst ick Nitrite + Not Available [place] [address], [place], [address], 12/26/2024 10:38:18 12/27/19 25 12/26/2024 urina lysis , dipst ick Urobilinogen - Not Available [facility] beryl [address], [place], [address], 12/26/2024 10:38:18 12/27/19 25 12/26/2024 urina lysis , dipst ick Protein Trace Not Available [place] [address], [place], [address], 12/26/2024 10:38:18 12/27/19 25 12/26/2024 urina lysis , dipst ick pH 5 Not Available [place] [address], [place], [address], 12/26/2024 10:38:18 12/27/19 25 12/26/2024 urina lysis , dipst ick Blood trace Not Available [place] [address], [place], [address], 12/26/2024 10:38:18 12/27/19 25 12/26/2024 urina lysis , dipst ick Specific [place] 1.025 Not Available [facility] [address], [place], [address], 12/26/2024 10:38:18 12/27/19 25 12/26/2024 urina lysis , dipst ick Ketone - Not Available [facility] [address], [place], [address], 12/26/2024 10:38:18 12/27/19 25 12/26/2024 urina lysis , dipst ick Bilirubin - Not Available Mario johansen [address], [place], [address], 12/26/2024 10:38:18 12/27/19 25 12/26/2024 urina lysis , dipst ick Glucose Normal Not Available [address], [place], [address], 12/26/2024 10:38:18 12/27/19 25 12/26/2024 urina lysis , dipst ick Appearance Clear Not Available [facility] kelsie [address], [place], [address], 12/26/2024 10:38:18 12/27/19 25 12/26/2024 urina lysis , dipst ick Color Yellow Not Available [place] [facility] [address], [place], [address], 12/26/2024 10:38:18 01/01/20 25 12/31/2024 US, pelvi s No observ ation record ed. [email or web address] [place] [address], [place], [address], 12/31/2024 15:38:27 01/01/20 25 12/31/2024 US, trans vagin al No observ ation record ed. [email or web address] [place] [address], [place], [address], 12/31/2024 15:38:39 01/01/20 25 12/31/2024 US, pelvi s No observ ation record ed. MITRA Jessa [address] [place] [address] [address], [place], [address], 01/02/2025 16:17:49 05/12/2005/12/2025 imagi ng/di agnos tic resul t No observ ation record ed. [address], [address], 05/12/2025 18:09:11 Result Notes None recorded. Problems Name Problem SNOMED Code Status Onset Date Resolution Date Notes Provider Name and Address Organization Details Recorded Time Amenorrh ea 85114978 Completed 201002/07/2022 AMENORRH EA;Pract ice ID: 0001 Susana quigley [facility] 2 09:52:05 Speciali zed medical examinat ion Completed 201002/07/2022 Routine gynecolo gical examinat ion;Prac mario ID: 0001 Susana quigley [facility] 2 09:52:06 Screenin g for malignan t neoplasm of cervix Completed 201002/07/2022 Pap Smear;Pr actice ID: 0001 [facility] 09:52:05 Pregnanc y test positive 657000001 Completed 201002/07/2022 Pregnanc y examinat ion or test, positive result;R ecorded Elsewher e: No Locat ion: [facility] S ource: EHR Banquet Stewardess isaias: N Practi ce ID: 0001 Aly lable Time: 09:06:00 AM Susana quigley [facility] 2 09:52:05 Abdomina l pain 74785494 Completed 201002/07/2022 Abdomina l pain, unspecif ied site;Pra ctice ID: 0001 [facility] 2 09:52:05 Threaten ed miscarri age 11331136 Completed 201002/07/2022 Threaten ed , antepart um;Pract ice ID: 0001 Susana [facility]gen [facility], [facility] 2 09:52:06 Urinary tract infectio us disease 16322320 Completed 201002/07/2022 Urinary tract infectio n, site not specifie d;Practi ce ID: 0001 Susana quigley [facility] 2 09:52:06 Malaise and fatigue 057363002 Completed 201002/07/2022 Fatigue And Malaise; Practice ID: 0001 [facility] 2 09:52:05 Nausea 286489530 Completed 201002/07/2022 Nausea alone;Pr actice ID: 0001 [facility] 2 09:52:05 anatomy study Completed 201002/07/2022 [facility] ANATMC SURVEY;P em ID: 0001 Susana Virgen [facility] 2 09:52:05 Vaginiti s and vulvovag initis Completed 201102/07/2022 Vaginiti s and vulvovag initis, unspecif ied;Prac mario ID: 0001 Susana Virgen [facility] 2 09:52:05 Pain in limb 49618955 Completed 201102/07/2022 Pain in limb;Pra ctice ID: 0001 Susana Virgen [facility] 2 09:52:06 Placenta previa with hemorrha ge - not delivere d 874624997 Completed 201102/07/2022 Hemorrha ge from placenta previa, antepart um;Pract ice ID: 0001 Susana Virgen [facility] 2 09:52:05 Palpitat ions 35894857 Completed 201102/07/2022 Palpitat ions;Pra ctice ID: 0001 Susana Virgen [facility] 2 09:52:06 Dyspnea 855410141 Completed 201102/07/2022 Shortnes s of breath;P ractice ID: 0001 Susana Virgen [facility] 2 09:52:05 malforma tion of central nervous system affectin g obstetri charles care 0735530 Completed 201102/07/2022 Central nervous system malforma tion in fetus, antepart um;Pract ice ID: 0001 Susana [facility] 2 09:52:05 Poor growth affectin g manageme nt 532770597 Completed 201102/07/2022 GROWTH POOR SGA;Prac mario ID: 0001 Susana Virgen [facility] 2 09:52:05 Routine antenata l care Completed 201102/07/2022 Supervis ion of other normal pregnanc y;Practi ce ID: 0001 Susana Virgen [facility] 2 09:52:05 Prematur e labor 9098459 Completed 201102/07/2022 LABOR;Pr actice ID: 0001 Susana Virgen [facility] 2 09:52:06 Postpart um care Completed 201102/07/2022 Routine postpart um follow-u p;Record ed Elsewher e: No Locat ion: [facility] S ource: EHR Banquet Stewardess isaias: N Practi ce ID: 0001 Aly lable Time: 03:30:00 PM Susana Virgen [facility] 2 09:52:05 Ill-defi mackenzie intestin al infectio n Completed 201202/07/2022 No Show Fee;Prac mario ID: 0001 Susana Virgen [facility] 2 09:52:05 Female genital organ symptoms 564495265 Completed 201202/07/2022 Unspecif ied symptom associat ed with female genital organs;R ecorded Elsewher e: No Locat ion: [facility] S ource: EHR Banquet Stewardess isaias: N Practi ce ID: 0001 Aly lable Time: 01:15:00 PM Susana Virgen [facility] 2 09:52:05 Ultrason ography Completed 201202/07/2022 Antenata l screenin g for malforma tion using ultrason ics;Juan rded Elsewher e: No Locat ion: [facility] S ource: EHR Banquet Stewardess isaias: N Practi ce ID: 0001 Aly lable Time: 02:30:00 PM Susana Virgen [facility] 2 09:52:05 Antenata l screenin g Completed 201202/07/2022 Antenata l screenin g for malforma tion using ultrason ics;Juan rded Elsewher e: No [facility] S ource: EHR Banquet Stewardess isaias: N Practi ce ID: 0001 Aly lable Time: 02:30:00 PM Susana Virgen [facility] 2 09:52:05 Congenit al malforma tion 183664666 Completed 201202/07/2022 Antenata l screenin g for malforma tion using ultrason ics;Juan rded Elsewher e: No [facility] S ource: EHR Banquet Stewardess isaias: N Practi ce ID: 0001 Aly lable Time: 02:30:00 PM Susana Virgen [facility] 2 09:52:05 Excessiv e growth affectin g manageme nt of mother 40962571 Completed 201302/07/2022 Excessiv e growth, affectin g manageme nt of mother, antepart um;Recor ded Elsewher e: No Locat ion: [facility] S ource: EHR Banquet Stewardess isaias: N Practi ce ID: 0001 Aly lable Time: 04:30:00 PM Susana Virgen [facility] 2 09:52:05 Dietary manageme nt surveill ance Completed 201302/07/2022 Dietary surveill ance and counseli ng;Pract ice ID: 0001 Susana Virgen [facility] 2 09:52:05 Diabetes mellitus during pregnanc y - baby not yet delivere d 100512983 Completed 201302/07/2022 Antepart um diabetes mellitus ;Recorde d Elsewher e: No Locat ion: Mario johansen [facility] S ource: EHR Banquet Stewardess isaias: N Rancho ce ID: 0001 Aly lable Time: 10:30:00 AM Susana [facility] 2 09:52:05 Glucose toleranc e test during pregnanc y - baby not yet delivere d outside referenc e range 829760987 Completed 201302/07/2022 Abnormal glucose toleranc e of mother, antepart um;Recor ded Elsewher e: No Locat ion: [facility] S ource: EHR Banquet Stewardess isaias: N Christi ce ID: 0001 Aly lable Time: 09:30:00 AM Susana [facility], [facility] 2 09:52:05 Labor and delivery complica kira by heart rate anomaly 823645328 Completed 201302/07/2022 ABNORMAL ITY IN HEART RATE OR RHYTHM, ANTEPART UM;Recor ded Elsewher e: No Locat ion: Mario johansen [facility] N Rancho ce ID: 0001 Aly lable Time: 10:30:00 AM Susana [facility], [facility] 2 09:52:05 Swelling of limb 83270911 Completed 201302/07/2022 Swelling of limb;Rec orded Elsewher e: No Locat ion: [facility] S ource: EHR Banquet Stewardess isaias: N Christi ce ID: 0001 Aly lable Time: 02:15:00 PM Susana [facility], [facility] 2 09:52:06 [facility] 351591513 Completed 201302/07/2022 Mother with single liveborn ;Practic e ID: 0001 Susana Virgen null, [facility] 2 09:52:05 Delivery normal 72167145 Completed 201302/07/2022 Normal delivery ;Practic e ID: 0001 Susana quigley [facility] 2 09:52:06 Adult health examinat ion Completed 201302/07/2022 ROUTINE MEDICAL EXAM;Rec orded Elsewher e: No [facility] E[facility] Banquet Stewardess isaias: N Practi ce ID: 0001 Aly lable Time: 10:00:00 AM Susana quigley [facility] 2 09:52:05 Neoplasm of uncertai n behavior of skin 05728619 Completed 201302/07/2022 Neoplasm of uncertai n behavior of skin;Rec orded Elsewher e: No [facility]: E[facility] Banquet Stewardess isaias: N Practi ce ID: 0001 Aly lable Time: 09:15:00 AM Susana quigley [facility] 2 09:52:06 Benign neoplasm of skin of trunk, excludin g scrotum Completed 201302/07/2022 Benign neoplasm of skin of trunk, except scrotum; Practice ID: 0001 Susana quigley [facility] 2 09:52:05 Past pregnanc y history of gestatio nal diabetes mellitus 490013189 Completed 201402/07/2022 Personal history of gestatio nal diabetes ;Recorde d Elsewher e: No Locat ion: [facility] S ource: EHR Banquet Stewardess isaias: N Practi ce ID: 0001 Aly lable Time: 03:06:03 PM Susana quigley [facility] 2 09:52:05 Body mass index 25-29 - overweig ht 512619239 Completed 201402/07/2022 Body mass index (BMI) 26.0-26. 9, adult;Re corded Elsewher e: No Locat ion: [facility] S ource: EHR Banquet Stewardess isaias: N Practi ce ID: 0001 Aly lable Time: 02:00:00 PM Susana [facility] [address] 09:52:[address] Concept Completed 201502/07/2022 Encntr for general adult medical exam w/o abnormal findings ;Recorde d Elsewher e: No Locat ion: [facility] S ource: EHR Banquet Stewardess isaias: N Practi ce ID: 0001 Aly lable Time: 01:00:00 PM Susana Virgen [facility] 2 09:52:05 Emotiona l state finding Completed 201702/07/2022 Anxiety depressi on;Recor ded Elsewher e: No [facility]: EHR Banquet Stewardess isaias: N Practi ce ID: 0001 Aly lable Time: 08:30:00 AM Susana [facility] 2 09:52:05 Premenst rual tension syndrome 08191609 Completed 201702/07/2022 Premenst rual tension syndrome ;Practic e ID: 0001 Susana Virgen [facility] 2 09:52:06 Abnormal uterine bleeding [id number] 100 Completed 201802/07/2022 Other specifie d abnormal uterine and vaginal bleeding ;Recorde d Elsewher e: No Locat ion: [facility] S ource: EHR Banquet Stewardess isaias: N Practi ce ID: 0001 Aly lable Time: 03:00:00 PM Susana [facility] 2 09:52:05 Finding of menstrua l bleeding Completed 201802/07/2022 Excessiv e and frequent menstrua tion with regular cycle;Pr actice ID: 0001 Susana Virgen [facility] 2 09:52:05 Pain in female genitali a Completed 201802/07/2022 Dysmenor jerald, unspecif ied;Prac mario ID: 0001 Susana Virgen [facility] 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 2 09:52:05 Premenst rual dysphori c disorder 860533 Completed 201902/07/2022 Premenst rual dysphori c disorder ;Practic e ID: 0001 Susana Virgen [facility] 2 09:52:06 Problem Notes None recorded. Procedures Surgical History Date Name Laterality Status Provider Name and Address Organization Details Recorded Time 12/20/19 24 Date of Last Mammogram completed Daisy Pro [facility] 01/02/2024 14:02:52 06/27/20 23 Date of Last Pap Smear completed [facility] 06/27/2023 15:26:39 09/04/19 18 endoscopy completed [facility] 06/27/2023 15:35:16 04/04/20 15 operation on accessory sinus completed [facility] 06/27/2023 15:34:21 06/03/20 14 removal of mole of skin by excision completed [facility] 06/27/2023 15:33:59 09/04/19 07 Laparoscopy completed [facility] 06/27/2023 15:34:41 09/04/19 04 Ectopic completed [facility] 06/27/2023 15:35:00 Imaging Results None recorded. Procedure Notes None recorded. Medical Equipment None Reported. Allergies No known drug allergies Medications Name Sig Start Date Stop Date Status Note LastModified by Organization Details LastModified Time amoxicill in 500 mg capsule TAKE 1 CAPSULE BY MOUTH THREE TIMES DAILY 06/27 completed Not Available Not Available Not Available Augmentin 875 mg-125 mg tablet take 1 tablet by oral route every 12 hours for 10 days 08/19 completed Prescrib ed Elsewher e: No Locat ion: [facility] odify By: alma Johansen ncounter DateTime : 08/10/20 01:28:50 PM Not Available Not Available Not Available Aviane 0.1 mg-20 mcg tablet take 1 tablet by oral route every day 10/25 completed Prescrib ed Elsewher e: No Locat ion: [facility] odify By: [email or web address] Encounte r DateTime : 10/14/19 11:15:00 AM Not Available Not Available Not Available estradiol 0.075 mg/24 hr semiweekl y transderm al patch APPLY 1 PATCH TOPICALL Y TO THE SKIN 2 TIMES A WEEK active Not Available Not Available No t Available azithromy bennett 250 mg tablet FOLLOW PACKAGE DIRECTIO NS 06/27 completed Not Available Not Available Not Available benzonata te 200 mg capsule TAKE 1 CAPSULE BY MOUTH THREE TIMES DAILY NEEDED FOR COUGH 06/27 completed Not Available Not Available Not Available glyburide 2.5 mg tablet take 1 pill by by oral route twice daily. 04/04 completed Prescrib ed Elsewher e: No Locat ion: [facility] odify By: cmedical Encount er DateTime : 01/17/20 14 11:30:00 AM Not Available Not Available Not Available ondansetr on HCl 4 mg tablet 06/27 completed Not Available Not Available Not Available estradiol 0.05 mg/24 hr semiweekl y transderm al patch APPLY 1 PATCH TOPICALL Y TO THE SKIN 2 TIMES A WEEK 10/29 completed Not Available Not Available Not Available sulfameth oxazole 800 mg-trimet hoprim 160 mg tablet TAKE 1 TABLET BY MOUTH EVERY 12 HOURS FOR 10 DAYS 01/01 completed Not Available Not Available Not Available Reglan 10 mg tablet take 1 tablet (10MG) by oral route every 6 hours as needed for nausea 04/04 completed Prescrib ed Elsewher e: No Locat ion: Mario johansen [facility] odify By: micaela Encount er DateTime : 07/26/20 13 01:15:00 PM Not Available Not Available Not Available amoxicill in 500 mg tablet take 1 tablet (500MG) by oral route every 8 hours for 10 days 01/19 completed Prescrib ed Elsewher e: No Locat ion: [facility] odify By: alma duarteer DateTime : 01/11/20 12 11:45:00 AM Not Available Not Available Not Available Macrobid 100 mg capsule take 1 capsule (100MG) by oral route every 12 hours with food 02/21 completed Prescrib ed Elsewher e: No Locat ion: Mario joh[facility] odify By: alma kyleunter DateTime : 12/28/19 12 09:54:38 PM Not Available Not Available Not Available propranol ol 10 mg tablet TAKE 1 TABLET BY MOUTH DAILY FOR ANXIETY active Not Available Not Available No t Available Metrogel Vaginal 0.75 % (37.5 mg/5 gram) insert 1 applicat orful by vaginal route for 5 nights at bedtime 08/08 completed Prescrib ed Elsewher e: No [facility] By: tennille bates DateTime : 08/02/20 16 11:00:30 AM Not Available Not Available Not Available estradiol 1 mg tablet TAKE 1 TABLET BY MOUTH EVERY DAY AT BEDTIME 10/02 completed Not Available Not Available Not Available dexametha sone 1 mg tablet TAKE 1 TABLET BY MOUTH 10PM THE NIGHT BEFORE DIRECTED 12/26 completed Not Available Not Available Not Available benzonata te 100 mg capsule 12/26 completed Not Available Not Available Not Available fluoxetin e 20 mg tablet take 1 tablet by oral route every day in the morning 08/08 completed Prescrib ed Elsewher e: No Locat ion: Mairo johansen [facility] odify By: amjohn kyleuntkathe DateTime : 02/17/20 18 08:30:00 AM Not Available Not Available Not Available promethaz ine 25 mg tablet take 1 tablet (25MG) by oral route every day at bedtime 02/21 completed Prescrib ed Elsewher e: No Locat ion: Mario joh[facility] odify By: alma kyleunter DateTime : 06/08/20 11 03:30:00 PM Not Available Not Available Not Available magnesium citrate oral solution 02/11 completed Prescrib ed Elsewher e: Yes Loca tion: [facility] odify By: tennille Johansen ncounter DateTime : 09/07/19 19 03:00:00 PM Not Available Not Available Not Available folic acid 1 mg tablet take 4 Tablet (4MG) by oral route every day 04/04 completed Prescrib ed Elsewher e: No Locat ion: Zurdo dionicio [facility] odify By: cmedical Encount er DateTime : 09/02/20 13 02:30:00 PM Not Available Not Available Not Available estradiol 0.5 mg tablet Take 1 tablet every day by oral route as directed for 30 days. 05/15 completed Not Available Not Available Not Available methylpre dnisolone 4 mg tablets in a dose pack FOLLOW PACKAGE DIRECTIO NS 06/27 completed Not Available Not Available Not Available Vitamin D2 1,250 mcg (50,000 unit) capsule take 1 capsule by oral route every week 08/08 completed Prescrib ed Elsewher e: No Locat ion: [facility] odify By: tennille kyleunter DateTime : 08/09/20 16 10:03:54 AM Not Available Not Available Not Available metformin ER 500 mg tablet,ex tended release 24 hr TAKE 1 TABLET BY MOUTH TWICE DAILY WITH MEALS 10/29 completed Not Available Not Available Not Available vitamin B complex capsule 06/27 completed Prescrib ed Elsewher e: Yes Loca tion: [facility] odify By: amjohn Johansen ncounter DateTime : 09/07/19 03:00:00 PM Not Available Not Available Not Available progester one micronize d 100 mg capsule TAKE 1 CAPSULE BY MOUTH EVERY DAY DIRECTED active Not Available Not Available No t Available Calcium-5 00 500 mg (as calcium carbonate 1,250 mg) tablet take 1 tablet by oral route every day 06/27 completed Prescrib ed Elsewher e: Yes Loca tion: [facility] odify By: mello Morrow r DateTime : 10/14/19 11:15:00 AM Not Available Not Available Not Available Vitamin D3 10 mcg (400 unit) capsule 05/15 completed Prescrib ed Elsewher e: Yes Loca tion: [facility] odify By: tennille Johansen ncounter DateTime : 09/07/19 03:00:00 PM Not Available Not Available Not Available Lo Loestrin Fe 1 mg-10 mcg (24)/10 mcg (2) tablet take 1 tablet by oral route every day 07/17 completed Prescrib ed Elsewher e: No Locat ion: [facility] odify By: gray Hoskins unter DateTime : 04/24/20 13 02:46:50 PM Not Available Not Available Not Available Triveen-D uo DHA 29 mg-1 mg-400 mg oral pack take 2 by Oral route every day for 30 days 01/23 completed Prescrib ed Elsewher e: No Locat ion: [facility] odify By: dianne Campbellt er DateTime : 12/26/19 14 09:03:52 AM Not Available Not Available Not Available Venatal Complete DHA 27 mg-1 mg-430 mg tablet and capsule,d elay releas once daily 02/21 completed Prescrib ed Elsewher e: No [facility] By: alma Johansen ncounter DateTime : 01/17/20 12 03:22:58 PM Not Available Not Available Not Available One Daily 27 mg iron-800 mcg tablet take 1 tablet by oral route every day 07/17 completed Prescrib ed Elsewher e: Yes Loca tion: [facility] odify By: angus henry DateTime : 04/04/20 09:30:00 AM Not Available Not Available Not Available Vitals Date Recorded Body height Body mass index (BMI) Body weight Systolic And Diastolic Provider Name and Address Organization Details Last Updated DateTime 10/02/2024 162.56 cm 29.5 kg/m2 36730.89 g 125/84 mm[Hg] [facility] 10/02/2024 16:22:51 Date Recorded Body height Body mass index (BMI) Body weight Systolic And Diastolic Provider Name and Address Organization Details Last Updated DateTime 10/29/2024 162.56 cm 29.9 kg/m2 46157.07 g 116/80 mm[Hg] Re[facility] 10/29/2024 14:18:38 Date Recorded Body height Body mass index (BMI) Body weight Systolic And Diastolic Provider Name and Address Organization Details Last Updated DateTime 12/26/2024 162.56 cm 29.5 kg/m2 83360.45 g 117/82 mm[Hg] Mayra Barnett [facility] 12/26/2024 09:30:02 Date Recorded Body height Body mass index (BMI) Body weight Systolic And Diastolic Provider Name and Address Organization Details Last Updated DateTime 05/15/2024 162.56 cm 29.2 kg/m2 56285.14 g 120/79 mm[Hg] Stephanie Chopra [facility] 05/15/2024 12:30:16 Social History Question Answer Notes LastModified by Organizat ion Details LastModified Time Tobacco Smoking Status Never Smoker Dara quigley [facility] 06/27/2023 15:33:24 Do You Have An Advance Directive? No Information n ot available 02/07/2022 Are You Blind Or Do You Have Difficulty Seeing? No Information n ot available 02/07/2022 What Is Your Level Of Caffeine Consumption? Occasional Information not available 02/07/2022 How Much Tobacco Do You Chew? None Information not available 02/07/2022 In The 14 Days Before Symptom Onset, Have You Had Close Contact With A Laboratory-confirm ed COVID-19 While That Case Was Ill? No Information n ot available 02/07/2022 In The 14 Days Before Symptom Onset, Have You Had Close Contact With A Person Who Is Under Investigation For COVID-19 While That Person Was Ill? No Information not available 02/07/2022 Have You Been To An Area Known To Be High Risk For COVID-19? No Information not available 02/07/2022 Are You Deaf Or Do You Have Serious Difficulty Hearing? No Information not available 02/07/2022 What Type Of Diet Are You Following? GLUTENFREE Information n ot available 02/13/2024 What Is The Highest Grade Or Level Of School You Have Completed Or The Highest Degree You Have Received? [id number] Information not available 02/07/2022 Are There Any Guns Present In Your Home? No Information not available 02/07/2022 Have You Ever Been Counseled For Unhealthy Alcohol Use? No [email or web address] Information not available 06/27/2023 Do You Use Protection During Sex? Always Information not available 02/13/2024 Do You Use Your Seat Belt Or Car Seat Routinely? Yes Information not available 02/07/2022 Do You Have Smoke And Carbon Monoxide Detectors In Your Home? Yes Information not available 02/07/2022 How Much Tobacco Do You Smoke? No Information not available 02/07/2022 Do You Use Sunscreen Routinely? Yes Information not available 02/07/2022 Have You Used IV Drugs? No Information not available 02/07/2022 Do You Have Difficulty Walking Or Climbing Stairs? No [email or web address] Information not available 06/27/2023 Sex: Unknown Functional Status Question Answer Note LastModified by Organizat ion Details LastModified Time Do you use any illicit or recreational drugs? No Information not available 02/07/2022 What is your level of alcohol consumption? None Information not available 01/02/2024 Are you able to walk independently without assistance or assistive devices? YESWOREST Information not available 02/07/2022 Are you able to care for yourself independently? Yes [email or web address] Information not available 06/27/2023 Do you have difficulty dressing, bathing, grooming, or toileting? No [email or web address] Information not available 06/27/2023 What is your exercise level? Moderate Information not available 02/07/2022 Mental Status Question Answer Note LastModified by Organization D etails LastModified Time Do you feel stressed (tense, restless, nervous, or anxious, or unable to sleep at night)? [id number] [email or web address] Information not available 12/26/2024 Family History Relationship Description Onset Age of this Age Resolved Age Notes LastModified by Organization Details LastModified Time Father Hypertensive disorder [email or web address] Not available 06/27 15:32:00 Father Diabetes mellitus [email or web address] Not available 06/27 15:32:11 Father Follicular lymphoma [email or web address] Not available 2024 13:40:41 Maternal Grandmother Malignant neoplasm of colon [email or web address] Not available 06/27 15:32:24 Maternal Uncle Malignant neoplasm of colon [email or web address] Not available 06/27 15:32:24 Notes:Father: follicular lym phoma, Hypertension, Diabetes mellitus Maternal grandmother: Cancer, colon Maternal uncle: Cancer, colon Mother: Cancer, breast, Cancer, thyroid Sister: Cancer, thyroid Medical History Condition Response Allergies (Food, seasonal, environmental ) N Other Y Breast Cancer N Drug/Latex Allergies/Reactions N Blood Transfusion N Dermatologic Disorders N Lung Disease N Defects or Inherited Disease N Breast Problem N Gestational Diabetes N Hematologic disorders N Anesthesia Complications N History of STI N Deep Vein Thrombosis N Polycystic ovary syndrome N Anxiety Disorder Y Autoimmune disease N Arthritis N Infertility N Polyps N Acid Reflux (GERD) N History of abnormal pap N Cancer N Stroke N Varicosities N Neurologic/Epilepsy N Endometriosis Y High Cholesterol N Headaches N Fibromyalgia N Kidney Disease N Heart Problems N Kidney or Bladder Problems N Thyroid Problems Y GI Problems N Eating Disorder N Anemia N Art (IVF or FET) N Psychiatric Illness N Ovarian Cancer N Diabetes N Pulmonary (TB, Asthma) N Hepatitis/Liver Disease N No Past Medical History N Eczema N Urinary Tract Infection N Abuse/Domestic Violence N Asthma N Trauma/Violence N Depression/ depression N Heart Disease N Pre-Eclampsia N Hypertension N Osteoporosis N Thrombophilias N Gynecological History Statement/Question Response Abnormal Pap Y Flow Heavy Date of Last Mammogram 12/20/2023 Date of LMP 12/15/2024 N On BCP's at Conception? N STIs/STDs N Was last menstrual period normal Y HPV Vaccine N Duration of Flow (days) 5 Current Control Method Partner Vas ectomy Age at First Child 19 Are cycles usually normal Y Date of Last Colonoscopy Frequency of Cycle (Q days) 28 Sexually Active? Y Menses Monthly Y Date of DEXA bone scan Age of first menstrual cycle 14 Date of Last Pap Smear 06/27/2023 Sexual Problems? N LMP Definite Y Obstetrics History GPAL:G 7 P 5 0 2 5 Type Value Full Term 5 Spontaneous 1 Living 5 Ectopics 1 Total 7 Past Encounters Encounter ID Performer Location Encounter Start Date Encounter Closed Date Diagnosis/Indication Diagnosis SNOMED-CT Code Diagnosis ICD10 Code Diagnosis IMO Codes Diagnosis Note [id number] Marion Cruz [facility] [address] [address] 02/07/2022 09:50:23 02/07/2022 10:46:06 Gynecologic examination 40491524 Z01.419 Suggested Calcium with Vitamin D 1200-1500m g daily. Patient advised to get an annual flu shot in the fall and she could obtain at [facility] or [facility] clinic. Also to obtain TDap vaccinatio n if you have not had one in the last 10 years. Recommend yearly mammograms . Encouraged monthly self breast exams. Encourage safe sexual practices, to use condoms and limit partners if not already in a monogamous relationsh ip. Engage in daily exercise of low impact aerobic exercise 45-60 minutes 4-5 times weekly. Avoid tobacco and illicit drugs as well as using moderation with alcohol intake less than 1-2 8 oz beverages daily. This lifestyle behavior pattern will lead to less health conditions and longer life span. If BMI greater than 25 weight watchers or dietary consult advised. All questions have been answered. Patient appears to understand informatio n, but if you have any questions please call or respond to this email. Pap/hpv sentSTD Screen declinedGe netic Screen discussed with brochures providedCo pete Screen naDexa Screen naRoutine Labs PCP UTWaqas ordered Pain in axilla 051098237 M79.629 Right side needs evaluated Urinary incontinence 165 955443 R32 Refer to urogyn [id number] Ashia Howard [facility] [address] [address] 06/27/2023 09:40:55 06/27/2023 12:17:57 Gynecologic examination [id number] Z01.419 WWEBC - partner with vasectomyp ap updated per pt preference STI testing declinedup dated breast imaging ordered, continue to f/u with breast specialist recommende dUTD with PCP for routine labscolon CA screening discussed and encouraged RTC in 1 yr or sooner Suggested Calcium with Vitamin D daily. Patient advised to get an annual flu shot in the fall and she could obtain at [facility] or [facility] clinic. Also to obtain TDap vaccinatio n if you have not had one in the last 10 years. Recommend yearly mammograms . Encouraged monthly self breast exams. Encourage safe sexual practices, to use condoms and limit partners if not already in a monogamous relationsh ip. Engage in daily exercise of low impact aerobic exercise 45-60 minutes 4-5 times weekly. Avoid tobacco and illicit drugs as well as using moderation with alcohol intake less than 1-2 8 oz beverages daily. This lifestyle behavior pattern will lead to less health conditions and longer life span. If BMI greater than 25 dietary consult advised. All questions have been answered. Patient appears to understand informatio n, but if you have any questions please call or respond to this email. Axillary lymphadenopathy [id number] R59.0 [id number] Marion Cruz [facility] [address] [address] 01/02/2024 13:47:04 01/02/2024 16:18:46 Menopausal symptom 94022563 N95.1 Today we agreed to the followin. Start HRT-defini tely perimenopa use involved; but there also may be other contributi ng factors to how she has been feeling; Hx of hashimotos /Elevated Morning fasting sugar.RTO x 6wks med check 2. Dr. Jessica Catalan-elyssa n to this endocrinol ogist that she was previously recieving care from.Adamr jeanie given. Will update some labs and can fax these to specialist if needed. We discussed Menopausal Hormone therapy (MHT) for women with intact uterus with the goals of reliving vaso-motor sx's using estrogen/p rogestin therapy (EPT) using lowest doses for shortest duration in women 40-59yo. Contraindi cations include: Hx of DVT or thrombolic events, High cholestero l, Hx of breast cancer, known CHD, active liver disease, unexplaine d vag bleeding, high risk endometria l cancer, TIA. Side effects can include but are not limited to: Irregular vag bleeding,, breast tenderness , nausea, weight changes, libido changes, nausea. Adverse Rxn: Elevated BP migraine w/ visual changes, breast cancer dx, GA/stroke, DVT/PE, Endometria l cancer. Please contact office with any new or worsening side effects or adverse reactions. Or if a medical emergency please go to nearest ED/[facility] care for further evaluation . Consider addition of Red Mckenzie Root by [facility] (4 tablets daily BID, AM dose on empty stomach). Time spent in visit is a total of 25 mins with at least 50% of visit consisting of counseling and review of plan of care. Flory thyroiditis 21 507792 E06.3 Obesity 436930089 E66.9 [id number] [facility] [address] [address] 02/13/2024 13:57:54 02/14/2024 13:44:21 Menopausal symptom 31023357 N95.1 Today we discussed increasing Estradiol to 1mg and then also continuing Prometrium 100mg; she is noticing improvemen ts; even in her cycle flow.She will give this regimen through the summer and RTO for medication check in 12wks. Counseled on medication R/B's, Most common side effects, & use. All questions were answered to patient satisfacti on. Time spent in visit is a total of 21 mins with at least 50% of visit consisting of counseling and review of plan of care. [id number] CHENTE RODAS MD [facility] [address] [address] 05/15/2024 12:14:41 05/15/2024 15:10:43 Menopausal symptom 50769792 N95.1 - currently on 0.5mg PO estradiol, 100mg prometrium - overall symptoms improved, however still having low libido and anxiety- discussed increasing to higher dosage of estrogen vs initiation of wellbutrin vs OTC supplement s vs Addyi/Vyle cassius- patient interested in switching to transderma l estrogen patch at higher dosage- will rtc 3 months for med check [id number] CHENTE RODAS MD [facility] [address],[place] [address] 10/02/2024 16:17:32 10/03/2024 10:29:32 Reduced libido 8314989 R68.82 - patient continues to report low libido- no pain with intercours e, no increased marital stress- will check testostero ne levels- discussed testostero ne cream for low libido Menopausal symptom 53440 002 N95.1 - currently on 0.05mg estrogen patch, 100mg prometrium - overall symptoms improved, however still having low libido and anxiety- discussed increasing to higher dosage of estrogen which may be helpful to persistent symptoms; will increase to 0.075mg patch- will rtc 1 months for med check Anxiety 73297236 F41.9 - will trial propranolo l for situationa l anxiety; take up to 1 hour prior to attacks- discussed risk of hypotensio n, s/s to monitor [id number] CHENTE RODAS MD [facility] [address],[place] [address] 10/29/2024 14:05:39 10/29/2024 14:49:10 Menopausal symptom 77767414 N95.1 - currently on 0.075mg estrogen patch, 100mg prometrium - symptoms improved on current regimen; happy with symptom control- discussed non-testos terone based libido treatments , patient declines at this time- discussed if irregular spotting occurs, plan to increase to 200mg prometrium - rtc 6 months for WWE [id number] ALISA Nathan [facility] [address],[place] [address] 12/26/2024 09:21:14 12/26/2024 12:02:43 Gynecologic examination 11748918 Z01.379 [id number] WWEBC - partner with vasectomyP ap - done todaySTI screen - declinedMa mmogram - order givenColon cancer screening - referral for screening colonoscop yRoutine labs - PCPRTC in 1 yr or sooner if needed Suggested Calcium with Vitamin D daily. Patient advised to get an annual flu shot in the fall and she could obtain at local pharmacy. Also to obtain TDap vaccinatio n if you have not had one in the last 10 years. Recommend yearly mammograms . Encouraged monthly self breast exams. Encourage safe sexual practices, to use condoms and limit partners if not already in a monogamous relationsh ip. Engage in regular exercise. Avoid tobacco and illicit drugs. This lifestyle behavior pattern will lead to less health conditions and longer life span. If BMI greater than 25 dietary consult advised. All questions have been answered. Screening mammography 24 254232 Z12.31 [id number] Pain in pelvis 57946100 R10.2 [id number] UA done, cx sentrecomm ended pelvic floor physical therapy - referral placedpelv ic u/s ordered, questions answered Time spent in visit is a total of 30 mins with at least 50% of visit consisting of counseling and review of plan of care. Pain in fe male genitalia on intercourse 14000715 N94.10 [id number] Screening for malignant neoplasm of colon 522504105 Z12.11 [id number] Gio Ybarra MD [facility] [address] [address] 12/31/2024 13:40:37 12/31/2024 14:49:32 Pain in female genitalia on intercourse 32300137 N94.10 [id number] Health Concerns Section Related Observation LastModified by Organization Detai ls LastModified Time None Recorded Concern Status LastModified by Organization Details LastModified Time None Recorded Advance Directives Directive N: Payers Insurance Date Sequence Insurance Name Policy Number Policy Mann Covered Member ID Mann Member ID Guarantor Name 02/07/2022 1 [employer] [id number] Ahmet Lobo [id number] Sally Lobo 01/03/2025 1 [employer] [id number] Ahmet Lobo [id number] Sally Lobo Notes Date Note Type Note Provider Name and Address Organization Details Recorded Time 05/15/20 24 text/htm l Patient presents for med check. She has been on 0.5mg estradiol and 100mg progesterone. She tried to increase to 1mg estradiol however had increased nausea. She reports improvement in her periods since starting HRT. She also reports more motivation and improvement in night sweats. She continues to report low libido, having any sex drive about 1 week per month. She also reports some increased anxiety for the past few years. Denies depression. CHENTE RODAS MD [address], [place], [address], [facility] 05/15/2024 15:04:12 10/02/19 25 text/htm l ROS as noted in the HPI Patient presents for med check. She was switched to estrogen patch from PO estrogen 3 months ago. Nausea has resolved. Hot flashes and night sweats improved. Brain fog improved. Still reports increased situational anxiety as well as low libido. CHENTE RODAS MD [address], [place], [address], [facility] 10/02/2024 23:32:34 10/29/19 25 text/htm l ROS as noted in the HPI Patient presents for med check. Increased estrogen patch to 0.075mg and has not needed the propanolol for anxiety. She reports one extra period since last visit, overall normal bleeding. She reports improvements in mood, night sweats, hot flashes, and anxiety. Testosterone levels wnl, libido still lower than previously. Has not been on testosterone supplementation. Overall happy with current regimen. CHENTE RODAS MD [address], [place], [address], [facility] 10/29/2024 14:45:12 12/27/19 25 text/htm l Annual GYNReported by PatientGenitourinary symptomsFor urinary symptoms, patient reportsincreased urinary frequencybut reportsno hematuriaandno incontinence. For menstrual cycle, patient reportsnormal menses. For vulva, patient reportsno genital lesion. For vagina, patient reportsnormal vaginal discharge.Breast symptomsFor breast, patient reportsno breast pain,no breast lump, andno nipple discharge.ContraceptionFor current contraception, patient reportssatisfied with current contraceptionandpartner had vasectomy.Endocrine symptomsFor sexual complaints, patient reportsno sexual complaints,no pain during intercourse, andnormal libido. For menopausal symptoms, patient reportsno menopausal symptomsandnormal vaginal lubrication.Psychological symptomsFor psychological symptoms, patient reportsno depression,no anxiety, andno pmdd.Preventative measuresFor preventive measures, patient reportsencourage self breast examination,encourage regular exercise,encourage no tobacco use, andencourage regular mammograms starting age 40.44yo wweBC - partner with vasectomylast pap 2022 : nilm, HPV (-) on HRT for perimenopausal symptoms, doing well and symptoms have improved she states she feels pelvic pressure at times, worse with exercisepain with IC/positionalurinary urgency at times neg dysuriabowel movements wnl Ashia Howard, ALISA [address], [place], [address], [facility] 12/26/2024 12:01:50 OBGyn Episode Ob Episode Information Episode Created Date Number of Fetuses Patient Bloodtype Patient rh Status Prepregnancy Weight lbs Domestic Partner Domestic Partner Phone Father Name Manager Forms Status 06/27/20 23 1 CLOSED Fetus Data First Name Last Name Admitted to NICU Weight (g) Sex Living Outcome Pediatric Complications Fetus ID Race Codes Race Delivery Type 3231.84 3 F Full Term [id number] Vaginal Delivery Ronaldo Calculation Initial Ronaldo Date Initial Exam Date Initial Exam Provider Initial Ultrasound Date Last Menstrual Period Date Ultra Sound Weeks Gestation 0 Eighteen To Twenty Week Ronaldo Update Ultra Sound Date Fundal Height At Umbil Quickening Date Ultra Sound Latest Weeks Gestation Final Ronaldo Confirmed By Final Ronaldo Confirmed Date Final Ronaldo Date Ultra Sound Latest Days Gestation 0 0 Menstrual History Last Menstrual Date Menses Monthly On Bcp Conception Prior Menses Frequency Hcg Plus Date Menarche Onset Age Delivery Information Delivery Date Delivery Type Labor Anesthesia Weeks Gestation Incision Type Labor Labor Length Hrs Delivered By Post Complications Tubal Sterilization Discharge Date Comments 4 38.6 GDM/ GBS Discharge Information Feeding Method Contraceptive Method Maternal HG B and HCT Levels Ob Episode Information Episode Created Date Number of Fetuses Patient Bloodtype Patient rh Status Prepregnancy Weight lbs Domestic Partner Domestic Partner Phone Father Name Manager Forms Status 06/27/20 23 1 CLOSED Fetus Data First Name Last Name Admitted to NICU Weight (g) Sex Living Outcome Pediatric Complications Fetus ID Race Codes Race Delivery Type 3515.33 8 F Full Term [id number] Vaginal Delivery Ronaldo Calculation Initial Ronaldo Date Initial Exam Date Initial Exam Provider Initial Ultrasound Date Last Menstrual Period Date Ultra Sound Weeks Gestation 0 Eighteen To Twenty Week Ronaldo Update Ultra Sound Date Fundal Height At Umbil Quickening Date Ultra Sound Latest Weeks Gestation Final Ronaldo Confirmed By Final Ronaldo Confirmed Date Final Ronaldo Date Ultra Sound Latest Days Gestation 0 0 Menstrual History Last Menstrual Date Menses Monthly On Bcp Conception Prior Menses Frequency Hcg Plus Date Menarche Onset Age Delivery Information Delivery Date Delivery Type Labor Anesthesia Weeks Gestation Incision Type Labor Labor Length Hrs Delivered By Post Complications Tubal Sterilization Discharge Date Comments 5 40 Discharge Information Feeding Method Contraceptive Method Maternal HG B and HCT Levels Ob Episode Information Episode Created Date Number of Fetuses Patient Bloodtype Patient rh Status Prepregnancy Weight lbs Domestic Partner Domestic Partner Phone Father Name Manager Forms Status 06/27/20 23 1 CLOSED Fetus Data First Name Last Name Admitted to NICU Weight (g) Sex Living Outcome Pediatric Complications Fetus ID Race Codes Race Delivery Type , [place] [id number] Ronaldo Calculation Initial Ronaldo Date Initial Exam Date Initial Exam Provider Initial Ultrasound Date Last Menstrual Period Date Ultra Sound Weeks Gestation 0 Eighteen To Twenty Week Ronaldo Update Ultra Sound Date Fundal Height At Umbil Quickening Date Ultra Sound Latest Weeks Gestation Final Ronaldo Confirmed By Final Ronaldo Confirmed Date Final Ronaldo Date Ultra Sound Latest Days Gestation 0 0 Menstrual History Last Menstrual Date Menses Monthly On Bcp Conception Prior Menses Frequency Hcg Plus Date Menarche Onset Age Delivery Information Delivery Date Delivery Type Labor Anesthesia Weeks Gestation Incision Type Labor Labor Length Hrs Delivered By Post Complications Tubal Sterilization Discharge Date Comments 1 Discharge Information Feeding Method Contraceptive Method Maternal HG B and HCT Levels Ob Episode Information Episode Created Date Number of Fetuses Patient Bloodtype Patient rh Status Prepregnancy Weight lbs Domestic Partner Domestic Partner Phone Father Name Manager Forms Status 06/27/20 23 1 CLOSED Fetus Data First Name Last Name Admitted to NICU Weight (g) Sex Living Outcome Pediatric Complications Fetus ID Race Codes Race Delivery Type 4082.32 8 M Full Term [id number] Vaginal Delivery Ronaldo Calculation Initial Ronaldo Date Initial Exam Date Initial Exam Provider Initial Ultrasound Date Last Menstrual Period Date Ultra Sound Weeks Gestation 0 Eighteen To Twenty Week Ronaldo Update Ultra Sound Date Fundal Height At Umbil Quickening Date Ultra Sound Latest Weeks Gestation Final Ronaldo Confirmed By Final Ronaldo Confirmed Date Final Ronaldo Date Ultra Sound Latest Days Gestation 0 0 Menstrual History Last Menstrual Date Menses Monthly On Bcp Conception Prior Menses Frequency Hcg Plus Date Menarche Onset Age Delivery Information Delivery Date Delivery Type Labor Anesthesia Weeks Gestation Incision Type Labor Labor Length Hrs Delivered By Post Complications Tubal Sterilization Discharge Date Comments 0 41 Discharge Information Feeding Method Contraceptive Method Maternal HG B and HCT Levels Ob Episode Information Episode Created Date Number of Fetuses Patient Bloodtype Patient rh Status Prepregnancy Weight lbs Domestic Partner Domestic Partner Phone Father Name Manager Forms Status 06/27/20 23 1 CLOSED Fetus Data First Name Last Name Admitted to NICU Weight (g) Sex Living Outcome Pediatric Complications Fetus ID Race Codes Race Delivery Type 3175.14 4 F Full Term 15203 Vaginal Delivery Ronaldo Calculation Initial Ronaldo Date Initial Exam Date Initial Exam Provider Initial Ultrasound Date Last Menstrual Period Date Ultra Sound Weeks Gestation 0 Eighteen To Twenty Week Ronaldo Update Ultra Sound Date Fundal Height At Umbil Quickening Date Ultra Sound Latest Weeks Gestation Final Ronaldo Confirmed By Final Ronaldo Confirmed Date Final Ronaldo Date Ultra Sound Latest Days Gestation 0 0 Menstrual History Last Menstrual Date Menses Monthly On Bcp Conception Prior Menses Frequency Hcg Plus Date Menarche Onset Age Delivery Information Delivery Date Delivery Type Labor Anesthesia Weeks Gestation Incision Type Labor Labor Length Hrs Delivered By Post Complications Tubal Sterilization Discharge Date Comments 2 38.5 Discharge Information Feeding Method Contraceptive Method Maternal HG B and HCT Levels Ob Episode Information Episode Created Date Number of Fetuses Patient Bloodtype Patient rh Status Prepregnancy Weight lbs Domestic Partner Domestic Partner Phone Father Name Manager Forms Status 06/27/20 23 1 CLOSED Fetus Data First Name Last Name Admitted to NICU Weight (g) Sex Living Outcome Pediatric Complications Fetus ID Race Codes Race Delivery Type Ectopic [id number] Ronaldo Calculation Initial Ronaldo Date Initial Exam Date Initial Exam Provider Initial Ultrasound Date Last Menstrual Period Date Ultra Sound Weeks Gestation 0 Eighteen To Twenty Week Ronaldo Update Ultra Sound Date Fundal Height At Umbil Quickening Date Ultra Sound Latest Weeks Gestation Final Ronaldo Confirmed By Final Ronaldo Confirmed Date Final Ronaldo Date Ultra Sound Latest Days Gestation 0 0 Menstrual History Last Menstrual Date Menses Monthly On Bcp Conception Prior Menses Frequency Hcg Plus Date Menarche Onset Age Delivery Information Delivery Date Delivery Type Labor Anesthesia Weeks Gestation Incision Type Labor Labor Length Hrs Delivered By Post Complications Tubal Sterilization Discharge Date Comments 4 Discharge Information Feeding Method Contraceptive Method Maternal HG B and HCT Levels Ob Episode Information Episode Created Date Number of Fetuses Patient Bloodtype Patient rh Status Prepregnancy Weight lbs Domestic Partner Domestic Partner Phone Father Name Manager Forms Status 06/27/20 23 1 CLOSED Fetus Data First Name Last Name Admitted to NICU Weight (g) Sex Living Outcome Pediatric Complications Fetus ID Race Codes Race Delivery Type 3486.76 1704 M Full Term [id number] Vaginal Delivery Ronaldo Calculation Initial Ronaldo Date Initial Exam Date Initial Exam Provider Initial Ultrasound Date Last Menstrual Period Date Ultra Sound Weeks Gestation 0 Eighteen To Twenty Week Ronaldo Update Ultra Sound Date Fundal Height At Umbil Quickening Date Ultra Sound Latest Weeks Gestation Final Ronaldo Confirmed By Final Ronaldo Confirmed Date Final Ronaldo Date Ultra Sound Latest Days Gestation 0 0 Menstrual History Last Menstrual Date Menses Monthly On Bcp Conception Prior Menses Frequency Hcg Plus Date Menarche Onset Age Delivery Information Delivery Date Delivery Type Labor Anesthesia Weeks Gestation Incision Type Labor Labor Length Hrs Delivered By Post Complications Tubal Sterilization Discharge Date Comments 0 39 Discharge Information Feeding Method Contraceptive Method Maternal HG B and HCT Levels
--- OUTSIDE RECORDS SUMMARY | 2025-07-16 01:36 | XMS_ITS | Clinical Summary ---
Author Organization [facility] Address [address] [place] [address] Care Team Providers Care Braiding Machine Operator Name Role Phone Sabina Klein MD Primary Care Provider [phone] Gio Ybarra MD Unavailable [phone] Allergies No known active allergies Medications estradioL [...] 03/27/2023 Dizzy spells 03/27/2023 Thyroid nodule 03/27/2023 Encounters Date Type Department Care Team Description 05/12/2025 12:31 PM CDT - 05/12/2025 11:59 PM CDT Hospital Encounter [facility] [address] [place] [address] [place] [address] Screening mammogram, encounter for Discharge Disposition: Discharge to home or self care from Last 3 Months Surgical History Surgery Date Site/Laterality Comments LAPAROSCOPIC [...] Colon cancer Maternal Grandmother Breast cancer Mother HER+ Thyroid cancer Mother Medullary Lung cancer Sister [...] on file Legal Sex Female 4:01 PM COMPUTED TOMOGRAPHY TECHNICIAN Gender Identity Female 03/27/2023 10:41 AM CDT Sexual Orientation Straight 03/27/2023 10 :41 AM CDT Obstetrics History Para Term AB IAB SAB Ectopic Multiple Livin g Live Births 7 5 Date Outcome GA Total Labor Labor/2nd/3rd Weight Sex Type Anes PTL Vibha A1 A5 Name Clin Last Filed Vital Signs Vital Sign Reading Time Taken Comments Blood Pressure 122/82 09/10/2024 8:14 AM COMPUTED TOMOGRAPHY TECHNICIAN Pulse 98 09/10/2024 8:14 AM COMPUTED TOMOGRAPHY TECHNICIAN Temperature 37.7 C (99.9 F) 09/10/2024 8:14 AM COMPUTED TOMOGRAPHY TECHNICIAN Respiratory Rate 18 09/10/2024 8:14 AM COMPUTED TOMOGRAPHY TECHNICIAN Oxygen Saturation 99% 09/10/2024 8:14 AM COMPUTED TOMOGRAPHY TECHNICIAN Inhaled Oxygen Concentration - - Weight 79.3 kg (174 lb 14.4 oz) 09/10/2024 8:14 AM COMPUTED TOMOGRAPHY TECHNICIAN Height 162.6 cm (5' 4.02) 09/10/2024 8:14 AM CS T Body Mass Index 30.01 09/10/2024 8:14 AM COMPUTED TOMOGRAPHY TECHNICIAN Plan of Treatment Health Maintenance Due Date Last Done Comments Cervical Cancer Screening 1980 Colon Cancer Screening-Colonoscopy 1980 Depression Screening 1980 Hepatitis C Screening 1980 Varicella Vaccines (1 of 2 - 13+ 2-dose series) 1993 Regular Well Visit/Exam 18-64 1998 HPV Vaccines (1 - 3-dose SCDM series) 2007 DTaP/Tdap/Td Vaccine (2 - Td or Tdap) 02/08/2024 02/07/2014 Influenza Vaccine (#1) 2025 0, 06/25/2018, 08/29/2017, Additional history exists Breast Cancer Screening-Mammogram 05/12/2026 05/12/2025, 12/20/2023, 03/17/2022, Additional history exists Hepatitis B Screening Completed 10/17/2019 Pneumococcal vaccine <65 Aged Out No longer eligible based on patient's age to complete this topic Procedures Procedure Name Priority Date/Time Associated Diagnosis Comments SCREENING MAMMOGRAM BILATERAL W ROMÁN Schedule Routine, Read Routine (OP Routine) 05/12/2025 1:07 PM CDT Screening mammogram, encounter for from Last 3 Months Results * Screening Mammogram Bilateral W Román (05/12/2025 1:07 PM CDT) Anatomical Region Laterality Modality Breast Bilateral Mammography Impressions 05/12/2025 1:41 PM CDT Bilateral No evidence of malignancy in either breast. OVERALL BI-RADS FINAL ASSESSMENT: 1 - Negative RECOMMENDATION: Recommend bilateral annual screening mammography. If supplemental screening is desired for heterogeneously dense breast tissue, consider breast MRI every 1-2 years. If breast MRI cannot be performed, contrast-enhanced mammography is an alternative. Narrative 05/12/2025 1:41 PM CDT EXAMINATION: Screening Mammogram Bilateral W Román: 05/12/2025 COMPARISON: Relevant prior studies available at the time of interpretation were reviewed, including the most recent mammogram on: 12/20/2023. TECHNIQUE: Mammography was performed with 2D and 3D digital breast tomosynthesis (DBT) images. CAD was utilized. BREAST PARENCHYMAL COMPOSITION: The breasts are heterogeneously dense, which may obscure small masses. FINDINGS: Bilateral There is no suspicious mass, calcification, or architectural distortion in either breast. us Self Screening Mammogram IMG MAMMO PROCEDURES Fi nal Result from Last [address] Augment [facility] Advance Directives For more information, please contact: [phone] * Full Code (Latest Code Status on File) Date Activated Date Inactivated Comments 07/25/2023 8:03 AM 07/25/2023 2:20 PM Care Teams Braiding Machine Operator Relationship Specialty Start Date End Date Sabina Klein MD PCP - General 07/31/17 Gio Ybarra MD [address] [place] [address] Referring Physician Obstetrics and Gynecology 12/27/23
--- OUTSIDE RECORDS SUMMARY | 2025-07-16 01:36 | XMS_ITS | Clinical Summary ---
Author Organization [facility] Address [address] [facility] [place] [address] Care Team Providers Care Door Frame Assembler Machine Name Role Phone Unavailable Primary Care Provider Unavailabl e Social History Tobacco Use Types Packs/Day Years Used Date Smoking Tobacco: Never Assessed Comments Unknown Sex and Gender Information Value Date Recorded Sex Assigned at Not on file Legal Sex Female 9:01 PM PST Gender Identity Not on file Sexual Orientation Not on file Plan of Treatment Not on file
--- OUTSIDE RECORDS SUMMARY | 2025-07-16 01:36 | XMS_ITS | Clinical Summary ---
Author Organization [facility] [employer] Address [address] [address] Care Team Providers Care Clinical Counselor Name Role Phone Sabina Klein MD Primary Care Provider [phone] Source Comments [facility] [employer],non-owned Affiliates and Associated Physician Practices is amultiple site organization consisting of ambulatory clinics and hospital sitesin [place], [place], [place] and [place]. This disclosure is being madepursuant to the Care Everywhere program and may not contain all information available regarding this patient. Last updated 18.[facility] [employer] Allergies No known active allergies Medications * [...] Health Maintenance Due Date Last Done Comments COLOGUARD (AGES 45-75) - COL ON CA SCREENING 1980 COLON MONITORING 1980 COLONOSCOPY - COLON CA SCREENING 1980 CT COLONOGRAPHY - COLON CA SCREENING 1980 Colorectal Cancer Screening 1980 FIT - COLON CA SCREENING 1980 FLEX SIG - COLON CA SCREENING 1980 LIPID TESTING 1980 MAMMOGRAM 1980 HIV SCREENING 1995 HEPATITIS C SCREENING 06/08/1998 DTAP/TDAP/TD VACCINES (1 - Tdap) 1999 HEPATITIS B VACCINE (1 of 3 - 19+ 3-dose series) 1999 PAP SMEAR 2001 HPV VACCINE (1 - 3-dose SCDM series) 2007 DEPRESSION SCREENING 09/04/2024 COVID-19 VACCINE (1 - 4-2 5 season) 2025 INFLUENZA VACCINE (#1) 2025 ZOSTER VACCINE (1 [...] patient's age to complete this topic Insurance [facility] Care Teams Clinical Counselor Relationship Specialty Start Date End Date Sabina Klein MD [address] [place] [address] PCP - General Family Medicine 07/04/17
--- OUTSIDE RECORDS SUMMARY | 2025-07-16 01:37 | XMS_ITS | Patient Health Record ---
Author Organization [facility] Address [address] [place], [place] [address] Care Team Providers Care Auto Clutch Specialist Name Role Phone Jessica Catalan Primary Care Provider Migration, Provider Unavailable Unavailable Allergies No Known Allergies Results Component Value Reference Range Flag Notes ANTINUCLEAR ANTIBODIES TITER AND PATTERN Reviewed date:07/25/2024 09:20:36 PM Interpretation: Performing Lab:[place], [place], [address], [place], [address] Bryce Cabello MD Notes/Report: Nuclear dots (1-6 in number per cell) pattern is seen in Sjogren's syndrome, systemic lupus erythematosus (SLE), systemic sclerosis (scleroderma), polymyositis, and asymptomatic individuals. AC-7: Few Nuclear Dots International Consensus on BEST Patterns (https://doi.org/10.1515/pcgq-4022-8709) A low level BEST titer may be present in pre-clinical autoimmune diseases and normal individuals. Reference Range <1:40 Negative 1:40-1:80 Low Antibody Level >1:80 Elevated Antibody Level A low level BEST titer may be present in pre-clinical autoimmune diseases and normal individuals. Reference Range <1:40 Negative 1:40-1:80 Low Antibody Level >1:80 Elevated Antibody Level Homogeneous pattern is associated with systemic lupus erythematosus (SLE), drug-induced lupus and juvenile idiopathic arthritis. AC-1: Homogeneous International Consensus on BEST Patterns (https://doi.org/10.1515/yjix-8659-6408) BEST TITER 1:80 H BEST PATTERN Nuclear, Few Nuclear Dots A BEST TITER 1:80 H BEST PATTERN Nuclear, Homogeneous A TSH Reviewed date:07/24/2024 07:08:27 AM Interpretation: Performing Lab:Ro[facility] MCFADDEN [place], [address], [place], [address] Bryce Cabello MD Notes/Report: Reference Range > or = 20 Years 0.40-4.50 Ranges First trimester 0.26-2.66 Second trimester 0.55-2.73 Third trimester 0.43-2.91 TSH 1.44 N T4, FREE Reviewed date:07/23/2024 09:26:08 AM Interpretation: Performing Lab:[place] [facility] [place], [address], [place], [address] Bryce Cabello MD Notes/Report: T4, FREE 1.1 0.8-1.8 ng/dL N SED RATE BY MODIFIED WESTERG DYANA Reviewed date:07/23/2024 06:23:55 AM Interpretation: Performing Lab:Roque MCFADDEN, [address], [place], [address] Bryce Cabello MD Notes/Report: SED RATE BY MODIFIED WESTERGREN 2 < OR = 20 mm/h N LIPID PANEL Reviewed date:07/23/2024 06:18:59 AM Interpretation: Performing Lab:[place] [place], [address] [place], [address] Bryce Cabello MD Notes/Report: Reference range: <100 Desirable range <100 mg/dL for primary prevention; <70 mg/dL for patients with CHD or diabetic patients with > or = 2 CHD risk factors. LDL-C is now calculated using the Dontae-Kelsey calculation, which is a validated novel method providing better accuracy than the Friedewald equation in the estimation of LDL-C. Dontae NOGUERA et al. GLORIA. 2013;310(19): 4666-7870 (http://education.Ulaola.[employer]/faq/XYU923) For patients with diabetes plus 1 major ASCVD risk factor, treating to a non-HDL-C goal of <100 mg/dL (LDL-C of <70 mg/dL) is considered a therapeutic option. CHOLESTEROL, TOTAL 169 <200 mg/dL N HDL CHOLESTEROL 39 > OR = 50 mg/dL L TRIGLYCERIDES 174 <150 mg/dL H LDL-CHOLESTEROL 101 H CHOL/HDLC RATIO 4.3 <5.0 (calc) N NON HDL CHOLESTEROL 130 <130 mg/dL (calc) H IRON AND TOTAL IRON BINDING CAPACITY Reviewed date:07/23/2024 06:24:13 AM Interpretation: Performing Lab:[place], [address] [place], [address] Bryce Cabello MD Notes/Report: IRON, TOTAL 160 40-190 mcg/dL N IRON BINDING CAPACITY 369 250-450 mc g/dL (calc) N % SATURATION 43 16-45 % (calc) N VITAMIN B12/FOLATE, SERUM PA FAMILIA Reviewed date:07/24/2024 07:08:21 AM Interpretation: Performing Lab:[place], [place], [address] Bryce Cabello MD Notes/Report: Reference Range Low: <3.4 Borderline: 3.4-5.4 Normal: >5.4 VITAMIN B12 431 904-9836 pg/mL N FOLATE, SERUM 8.1 N CBC (INCLUDES DIFF/PLT) Reviewed date:07/23/2024 06:21:00 AM Interpretation: Performing Lab:[place], [address] [place], [address] Bryce Cabello MD Notes/Report: For adults, a slight decrease in the calculated MCHC value (in the range of 30 to 32 g/dL) is most likely not clinically significant; however, it should be interpreted with caution in correlation with other red cell parameters and the patient's clinical condition. WHITE BLOOD CELL COUNT 7.5 3.8-10.8 Thousand/uL N RED BLOOD CELL COUNT 4.75 3.80-5.10 Million/uL N HEMOGLOBIN 13.6 11.7-15.5 g/dL N HEMATOCRIT 42.6 35.0-45.0 % N MCV 89.7 80.0-100.0 fL N MCH 28.6 27.0-33.0 pg N MCHC 31.9 32.0-36.0 g/dL L RDW 12.9 11.0-15.0 % N PLATELET COUNT 332 140-400 Thousand/uL N MPV 9.5 7.5-12.5 fL N ABSOLUTE NEUTROPHILS 4598 5041-5557 cells/uL N ABSOLUTE LYMPHOCYTES 2130 850-3900 cells/uL N ABSOLUTE MONOCYTES 450 200-950 cells/uL N ABSOLUTE EOSINOPHILS 240 15-500 cells/uL N ABSOLUTE BASOPHILS 83 0-200 cells/uL N NEUTROPHILS 61.3 N LYMPHOCYTES 28.4 N MONOCYTES 6.0 N EOSINOPHILS 3.2 N BASOPHILS 1.1 N MAGNESIUM Reviewed date:07/23/2024 06:24:04 AM Interpretation: Performing Lab:[place] [facility], [address] [place], [address] Bryce Cabello MD Notes/Report: MAGNESIUM 2.2 1.5-2.5 mg/dL N INSULIN Reviewed date:07/24/2024 07:08:34 AM Interpretation: Performing Lab:[place] [facility], [address] [place], [address] Bryce Cabello MD Notes/Report: Reference Range < or = 18.4 Risk: Optimal < or = 18.4 Moderate NA High >18.4 Adult cardiovascular event risk category cut points (optimal, moderate, high) are based on Insulin Reference Interval studies performed at [facility] in 2021. INSULIN 6.0 N HEMOGLOBIN A1c Reviewed date:07/24/2024 07:07:53 AM Interpretation: Performing Lab:[facility], [address], [place], [address] Bryce Cabello Notes/Report: For the purpose of screening for the presence of diabetes: <5.7% Consistent with the absence of diabetes 5.7-6.4% Consistent with increased risk for diabetes (prediabetes) > or =6.5% Consistent with diabetes This assay result is consistent with a decreased risk of diabetes. Currently, no consensus exists regarding use of hemoglobin A1c for diagnosis of diabetes in children. According to [place] Diabetes Association (ADA) guidelines, hemoglobin A1c <7.0% represents optimal control in non- diabetic patients. Different metrics may apply to specific patient populations. Standards of Medical Care in Diabetes(ADA). HEMOGLOBIN A1c 5.5 <5.7 % of total Hgb N C-REACTIVE PROTEIN Reviewed date:07/24/2024 07:09:06 AM Interpretation: Performing Lab:Roque MCFADDEN, [address] [address] [place], [address] Bryce Cabello MD Notes/Report: C-REACTIVE PROTEIN 6.8 <8.0 mg/L N RHEUMATOID FACTOR Reviewed date:07/24/2024 07:08:52 AM Interpretation: Performing Lab:Roque MCFADDEN, [address] [place], [place], [address] Bryce Cabello MD Notes/Report: RHEUMATOID FACTOR <10 <14 IU/mL N T3, FREE Reviewed date:07/24/2024 07:08:14 AM Interpretation: Performing Lab:Roque MCFADDEN, [address] [place], [address] Bryce Cabello MD Notes/Report: T3, FREE 3.4 2.3-4.2 pg/mL N BEST IFA SCREEN W/REFL TO TIT ER AND PATTERN, IFA Reviewed date:07/24/2024 09:00:32 PM Interpretation: Performing Lab:Roque MCFADDEN, [address], [place], [address] Bryce Cabello MD Notes/Report: BEST IFA is a first line screen for detecting the presence of up to approximately 150 autoantibodies in various autoimmune diseases. A positive BEST IFA result is suggestive of autoimmune disease and reflexes to titer and pattern. Further laboratory testing may be considered if clinically indicated. For additional information, please refer to http://education.CHARMS PPEC/faq/HEJ195 (This link is being provided for informational/ educational purposes only.) BEST SCREEN, IFA POSITIVE NEGATIVE A VITAMIN D, 25-HYDROXY, LC/MS /MS Reviewed date:07/24/2024 07:07:59 AM Interpretation: Performing Lab:Roque MCFADDEN, [address] [place], [address] Bryce Cabello MD Notes/Report: Vitamin D Status 25-OH Vitamin D: Deficiency: <20 ng/mL Insufficiency: 20 - 29 ng/mL Optimal: > or = 30 ng/mL For 25-OH Vitamin D testing on patients on D2-supplementation and patients for whom quantitation of D2 and D3 fractions is required, the QuestAssureD(TM) 25-OH VIT D, (D2,D3), LC/MS/MS is recommended: order code 86629 (patients >2yrs). See Note 1 Note 1 For additional information, please refer to http://education.CHARMS PPEC/faq/ZWK644 (This link is being provided for informational/ educational purposes only.) VITAMIN D,25-OH,TOTAL,IA 44 30-100 ng/mL N COMPREHENSIVE METABOLIC PANE L Reviewed date:07/23/2024 06:24:30 AM Interpretation: Performing Lab:[place] [facility], [address] [place], [address] Bryce Cabello MD Notes/Report: Fasting reference interval For someone without known diabetes, a glucose value between 100 and 125 mg/dL is consistent with prediabetes and should be confirmed with a follow-up test. Not Reported: BUN and Creatinine are within reference range. GLUCOSE 102 65-99 mg/dL H UREA NITROGEN (BUN) 10 7-25 mg/dL N CREATININE 0.77 0.50-0.99 mg/dL N EGFR 97 > OR = 60 mL/min/1.73m2 N BUN/CREATININE RATIO SEE NOTE: 6-22 (calc) SODIUM 138 135-146 mmol/L N POTASSIUM 4.0 3.5-5.3 mmol/L N CHLORIDE 105 98-110 mmol/L N CARBON DIOXIDE 24 20-32 mmol/L N CALCIUM 9.3 8.6-10.2 mg/dL N PROTEIN, TOTAL 6.5 6.1-8.1 g/dL N ALBUMIN 4.2 3.6-5.1 g/dL N GLOBULIN 2.3 1.9-3.7 g/dL (calc) N ALBUMIN/GLOBULIN RATIO 1.8 1.0-2.5 (calc) N BILIRUBIN, TOTAL 0.7 0.2-1.2 mg/dL N ALKALINE PHOSPHATASE 44 31-125 U/L N AST 13 10-30 U/L N ALT 12 6-29 U/L N .COMPREHENSIVE METABOLIC AGARWAL EL (96977) CMP Reviewed date:11/05/2024 08:52:46 PM Interpretation: Performing Lab:[facility] [facility], LvcblfGM[address] Bryce Cabello MD Notes/Report: FASTING:YES FASTING: YES GLUCOSE 108 65-99 mg/dL H prediabetes and should be confirmed with a between 100 and 125 mg/dL is consistent with Fasting reference interval follow-up test. For someone without known diabetes, a glucose value UREA NITROGEN (BUN) 10 7-25 mg/dL N CREATININE 0.68 0.50-0.99 mg/dL N EGFR 110 > OR = 60 mL/min/1.73m2 N BUN/CREATININE RATIO SEE NOTE: 6-22 (calc) Not Reported: BUN and Creatinine are within reference range. SODIUM 138 135-146 mmol/L N POTASSIUM 4.3 3.5-5.3 mmol/L N CHLORIDE 104 98-110 mmol/L N CARBON DIOXIDE 26 20-32 mmol/L N CALCIUM 9.1 8.6-10.2 mg/dL N PROTEIN, TOTAL 6.4 6.1-8.1 g/dL N ALBUMIN 4.2 3.6-5.1 g/dL N GLOBULIN 2.2 1.9-3.7 g/dL (calc) N ALBUMIN/GLOBULIN RATIO 1.9 1.0-2.5 (calc) N BILIRUBIN, TOTAL 0.4 0.2-1.2 mg/dL N ALKALINE PHOSPHATASE 44 31-125 U/L N AST 11 10-30 U/L N ALT 10 6-29 U/L N .LIPID PANEL, STANDARD (7600 ) Reviewed date:11/05/2024 08:52:46 PM Interpretation: Performing Lab:[facility] [place], MpfpdpXE[address] Bryce Cabello MD Notes/Report: FASTING:YES FASTING: YES CHOLESTEROL, TOTAL 180 <200 mg/dL N HDL CHOLESTEROL 41 > OR = 50 mg/dL L TRIGLYCERIDES 279 <150 mg/dL H if clinically indicated. Mich et al. J. of Clin. Lipidol. 2015;9:129-169. repeat triglyceride testing on a fasting specimen If a non-fasting specimen was collected, consider LDL-CHOLESTEROL 99 N calculation, which is a validated novel method providing with > or = 2 CHD risk factors. Dontae SS et al. GLORIA. 2013;310(19): 4228-3799 estimation of LDL-C. LDL-C is now calculated using the [facility] (http://education.WebAction/faq/F AQ164) <70 mg/dL for patients with CHD or diabetic patients Desirable range <100 mg/dL for primary prevention; better accuracy than the Friedewald equation in the Reference range: <100 CHOL/HDLC RATIO 4.4 <5.0 (calc) N NON HDL CHOLESTEROL 139 <130 mg/dL (calc) H factor, treating to a non-HDL-C goal of <100 mg/dL For patients with diabetes plus 1 major ASCVD risk option. (LDL-C of <70 mg/dL) is considered a therapeutic .CBC (INCLUDES DIFF/PLT) (62 99) Reviewed date:11/05/2024 08:52:46 PM Interpretation: Performing Lab:[facility]feh[address] [place], GqhtioOO[address] Bryce Cabello MD Notes/Report: FASTING:YES FASTING: YES WHITE BLOOD CELL COUNT 7.4 3.8-10.8 Thousand/uL N RED BLOOD CELL COUNT 4.56 3.80-5.10 Million/uL N HEMOGLOBIN 13.2 11.7-15.5 g/dL N HEMATOCRIT 40.6 35.0-45.0 % N MCV 89.0 80.0-100.0 fL N MCH 28.9 27.0-33.0 pg N MCHC 32.5 32.0-36.0 g/dL N value (in the range of 30 to 32 g/dL) is most likely interpreted with caution in correlation with other For adults, a slight decrease in the calculated MCHC not clinically significant; however, it should be red cell parameters and the patient's clinical condition. RDW 13.4 11.0-15.0 % N PLATELET COUNT 339 140-400 Thousand/uL N MPV 9.6 7.5-12.5 fL N ABSOLUTE NEUTROPHILS 4381 7837-4886 cells/uL N ABSOLUTE LYMPHOCYTES 2205 850-3900 cells/uL N ABSOLUTE MONOCYTES 422 200-950 cells/uL N ABSOLUTE EOSINOPHILS 296 15-500 cells/uL N ABSOLUTE BASOPHILS 96 0-200 cells/uL N NEUTROPHILS 59.2 N LYMPHOCYTES 29.8 N MONOCYTES 5.7 N EOSINOPHILS 4.0 N BASOPHILS 1.3 N .HEMOGLOBIN A1c (496) Reviewed date:11/05/2024 08:52:46 PM Interpretation: Performing Lab:[facility] [place] XvbaaytOI[address] Bryce Cabello Notes/Report: FASTING:YES FASTING: YES HEMOGLOBIN A1c 5.4 <5.7 % of total Hgb N (prediabetes) 5.7-6.4% Consistent with increased risk for diabetes metrics may apply to specific patient populations. According to [place] Diabetes Association (ADA) control in non- diabetic patients. Different Standards of Medical Care in Diabetes(ADA). of diabetes. > or =6.5% Consistent with diabetes Currently, no consensus exists regarding use of This assay result is consistent with a decreased risk For the purpose of screening for the presence of hemoglobin A1c for diagnosis of diabetes in children. diabetes: guidelines, hemoglobin A1c <7.0% represents optimal <5.7% Consistent with the absence of diabetes INSULIN (561) Reviewed date:11/05/2024 08:52:46 PM Interpretation: Performing Lab:Roque MCFADDEN-[address] [place], ZdjhqrSL[address] Bryce Cabello MD Notes/Report: FASTING:YES FASTING: YES INSULIN 9.1 N Adult cardiovascular event risk category are based on Insulin Reference Interval cut points (optimal, moderate, high) in 2021. studies performed at [facility] Optimal < or = 18.4 High >18.4 Risk: Reference Range < or = 18.4 Moderate NA T4, FREE (866) Reviewed date:11/05/2024 08:52:46 PM Interpretation: Performing Lab:Roque MCFADDEN-[address]rtxc[address] [place], CpaubqST[address] Bryce Cabello MD Notes/Report: FASTING:YES FASTING: YES T4, FREE 1.2 0.8-1.8 ng/dL N TSH (899) Reviewed date:11/05/2024 08:52:46 PM Interpretation: Performing Lab:Roque MCFADDEN-[address] [place], WxmqzvUP[address] Bryce Cabello MD Notes/Report: FASTING:YES FASTING: YES TSH 1.04 N Ranges Second trimester 0.55-2.73 First trimester 0.26-2.66 Third trimester 0.43-2.91 Reference Range > or = 20 Years 0.40-4.50 T3, FREE (50034) Reviewed date:11/05/2024 08:52:46 PM Interpretation: Performing Lab:Roque MCFADDEN-Pfatmh[address] [place], MpngyvRY[address] Bryce Cabello MD Notes/Report: FASTING:YES FASTING: YES T3, FREE 3.3 2.3-4.2 pg/mL N CORTISOL, TOTAL (367) Reviewed date:11/30/2024 08:56:14 PM Interpretation: Performing Lab:Roque MCFADDEN-Hskhmb[address] [place], OjjaekOL[address] Bryce Cabello MD Notes/Report: CORTISOL, TOTAL 0.8 L * Please interpret above results accordingly * Reference Range: For 8 a.m.(7-9 a.m.) Specimen: 4.0-22.0 Reference Range: For 4 p.m.(3-5 p.m.) Specimen: 3.0-17.0 DEXAMETHASONE ([id number]) Reviewed date:12/07/2024 08:53:49 PM Interpretation: Performing Lab:Roque MOSHER/[facility],[address] [facility] Mel Ruth MD,PhD,VIRA Notes/Report: DEXAMETHASONE 281 1 mg dexamethasone overnight: 180-550 ng/dL (8:00-10:00 AM) used for clinical purposes. Reference Ranges for Dexamethasone: This test was developed and its analytical performance characteristics have been determined by [facility]. has been validated pursuant to the CLIA regulations and is It has not been cleared or approved by the FDA. This assay Baseline: Less than 20 ng/dL HELICOBACTER PYLORI AG, EIA, STOOL ([id number]) Reviewed date:04/13/2025 07:55:20 PM Interpretation: Performing Lab:[facility] SpringfieldWatsu[address] Bryce Cabello Notes/Report: HELICOBACTER PYLORI AG, EIA, STOOL SEE NOTE ingestion up to two weeks prior to testing may Antimicrobials, proton pump inhibitors, and cause false negative results. If clinically Specimen Source: Stool H.pylori Ag: Not Detected Micro Number: [id number] treatment. Specimen Quality: Adequate Reference Range: Not Detected bismuth preparations inhibit H. pylori and specimen obtained two weeks after discontinuing HELICOBACTER PYLORI AG, EIA, STOOL indicated the test should be repeated on a new Test Status: Final .COMPREHENSIVE METABOLIC AGARWAL EL (38000) [facility] [address] Reviewed date:12/24/2024 02:31:12 PM Interpretation: Performing Lab:[facility] [place] [place], QncrsuLU[address] Bryce Cabello MD Notes/Report: GLUCOSE 117 65-99 mg/dL H between 100 and 125 mg/dL is consistent with Fasting reference interval For someone without known diabetes, a glucose value prediabetes and should be confirmed with a follow-up test. UREA NITROGEN (BUN) 10 7-25 mg/dL N CREATININE 0.73 0.50-0.99 mg/dL N EGFR 104 > OR = 60 mL/min/1.73m2 N BUN/CREATININE RATIO SEE NOTE: 6-22 (calc) Not Reported: BUN and Creatinine are within reference range. SODIUM 140 135-146 mmol/L N POTASSIUM 4.3 3.5-5.3 mmol/L N CHLORIDE 108 98-110 mmol/L N CARBON DIOXIDE 26 20-32 mmol/L N CALCIUM 9.2 8.6-10.2 mg/dL N PROTEIN, TOTAL 6.4 6.1-8.1 g/dL N ALBUMIN 4.2 3.6-5.1 g/dL N GLOBULIN 2.2 1.9-3.7 g/dL (calc) N ALBUMIN/GLOBULIN RATIO 1.9 1.0-2.5 (calc) N BILIRUBIN, TOTAL 0.4 0.2-1.2 mg/dL N ALKALINE PHOSPHATASE 45 31-125 U/L N AST 10 10-30 U/L N ALT 11 6-29 U/L N .CBC (INCLUDES DIFF/PLT) (63 99) Reviewed date:12/24/2024 02:31:12 PM Interpretation: Performing Lab:Roque MCFADDEN-[address]ovzk[address] [place], CwnkjlUW[address] Bryce Cabello MD Notes/Report: WHITE BLOOD CELL COUNT 6.4 3.8-10.8 Thousand/uL N RED BLOOD CELL COUNT 4.39 3.80-5.10 Million/uL N HEMOGLOBIN 12.7 11.7-15.5 g/dL N HEMATOCRIT 38.8 35.0-45.0 % N MCV 88.4 80.0-100.0 fL N MCH 28.9 27.0-33.0 pg N MCHC 32.7 32.0-36.0 g/dL N condition. For adults, a slight decrease in the calculated MCHC red cell parameters and the patient's clinical value (in the range of 30 to 32 g/dL) is most likely not clinically significant; however, it should be interpreted with caution in correlation with other RDW 12.6 11.0-15.0 % N PLATELET COUNT 301 140-400 Thousand/uL N MPV 9.9 7.5-12.5 fL N ABSOLUTE NEUTROPHILS 3712 3969-6393 cells/uL N ABSOLUTE LYMPHOCYTES 3324 340-3216 cells/uL N ABSOLUTE MONOCYTES 371 200-950 cells/uL N ABSOLUTE EOSINOPHILS 250 15-500 cells/uL N ABSOLUTE BASOPHILS 102 0-200 cells/uL N NEUTROPHILS 58 N LYMPHOCYTES 30.7 N MONOCYTES 5.8 N EOSINOPHILS 3.9 N BASOPHILS 1.6 N DHEA SULFATE (402) Reviewed date:12/24/2024 02:31:12 PM Interpretation: Performing Lab:Roque MCFADDEN [place] Bryce Cabello MD Notes/Report: DHEA SULFATE 160 15-205 mcg/dL N T4, FREE (866) Reviewed date:12/24/2024 02:31:12 PM Interpretation: Performing Lab:Roque MCFADDENa1Bryan [place] Bryce Cabello MD Notes/Report: T4, FREE 1.2 0.8-1.8 ng/dL N TSH (899) Reviewed date:12/24/2024 02:31:12 PM Interpretation: Performing Lab:Roque MCFADDEN FcpdrwNO[address] Bryce Cabello MD Notes/Report: TSH 0.70 N First trimester 0.26-2.66 > or = 20 Years 0.40-4.50 Ranges Third trimester 0.43-2.91 Second trimester 0.55-2.73 Reference Range T3, FREE (97327) Reviewed date:12/24/2024 02:31:12 PM Interpretation: Performing Lab:Roque MCFADDEN-[place], HqtfwoJA[address] Bryce Cabello MD Notes/Report: T3, FREE 3.4 2.3-4.2 pg/mL N ACTH, PLASMA (211) Reviewed date:12/25/2024 08:38:16 PM Interpretation: Performing Lab:Roque JIMENEZ/[place] [id number] [facility] , SlojyivkvIH[address] Rahsad Centeno M.D.,PhD Notes/Report: ACTH, PLASMA 22 6-50 pg/mL between 7am-10am. Reference range applies only to specimens collected T3, FREE (56725) Reviewed date:03/13/2025 12:03:54 PM Interpretation: Performing Lab:Roque MCFADDEN-[place], GlyhxgVT[address] Bryce Cabello MD Notes/Report: T3, FREE 3.3 2.3-4.2 pg/mL N TSH (899) Reviewed date:03/13/2025 12:10:05 PM Interpretation: Performing Lab:Roque MCFADDEN, PzoewhJZ[address] Bryce Cabello MD Notes/Report: TSH 1.25 N First trimester 0.26-2.66 Third trimester 0.43-2.91 Ranges Reference Range > or = 20 Years 0.40-4.50 Second trimester 0.55-2.73 T4, FREE (866) Reviewed date:03/13/2025 12:04:03 PM Interpretation: Performing Lab:Roque MCFADDEN, GhexzoHQ[address] Bryce Cabello MD Notes/Report: T4, FREE 1.2 0.8-1.8 ng/dL N INSULIN (561) Reviewed date:03/13/2025 12:04:16 PM Interpretation: Performing Lab:Roque MCFADDEN[address] [place], XqbdjfFL[address] Bryce Cabello MD Notes/Report: INSULIN 7.2 N Reference Range < or = 18.4 Risk: Optimal < or = 18.4 are based on Insulin Reference Interval in 2021. Moderate NA High >18.4 Adult cardiovascular event risk category studies performed at [facility] cut points (optimal, moderate, high) .HEMOGLOBIN A1c (496) Reviewed date:03/11/2025 08:49:46 PM Interpretation: Performing Lab:[facility] SpringfieldYsase[address] WqlqkgxLL[address] Bryce Cabello Notes/Report: HEMOGLOBIN A1c 5.6 <5.7 % of total Hgb N guidelines, hemoglobin A1c <7.0% represents optimal control in non- diabetic patients. Different 5.7-6.4% Consistent with increased risk for diabetes of diabetes. diabetes: hemoglobin A1c for diagnosis of diabetes in children. (prediabetes) > or =6.5% Consistent with diabetes metrics may apply to specific patient populations. Currently, no consensus exists regarding use of <5.7% Consistent with the absence of diabetes According to [place] Diabetes Association (ADA) This assay result is consistent with a decreased risk For the purpose of screening for the presence of Standards of Medical Care in Diabetes(ADA). .CBC (INCLUDES DIFF/PLT) (63 99) Reviewed date:03/13/2025 12:09:54 PM Interpretation: Performing Lab:Roque MCFADDEN-Hpriod[address] [place], KyqhhvCD[address] Bryce Cabello MD Notes/Report: WHITE BLOOD CELL COUNT 8.3 3.8-10.8 Thousand/uL N RED BLOOD CELL COUNT 4.46 3.80-5.10 Million/uL N HEMOGLOBIN 12.9 11.7-15.5 g/dL N HEMATOCRIT 40.2 35.0-45.0 % N MCV 90.1 80.0-100.0 fL N MCH 28.9 27.0-33.0 pg N MCHC 32.1 32.0-36.0 g/dL N For adults, a slight decrease in the calculated MCHC not clinically significant; however, it should be red cell parameters and the patient's clinical interpreted with caution in correlation with other condition. value (in the range of 30 to 32 g/dL) is most likely RDW 13.1 11.0-15.0 % N PLATELET COUNT 325 140-400 Thousand/uL N MPV 9.7 7.5-12.5 fL N ABSOLUTE NEUTROPHILS 5204 4730-8543 cells/uL N ABSOLUTE LYMPHOCYTES 2208 850-3900 cells/uL N ABSOLUTE MONOCYTES 490 200-950 cells/uL N ABSOLUTE EOSINOPHILS 299 15-500 cells/uL N ABSOLUTE BASOPHILS 100 0-200 cells/uL N NEUTROPHILS 62.7 N LYMPHOCYTES 26.6 N MONOCYTES 5.9 N EOSINOPHILS 3.6 N BASOPHILS 1.2 N .LIPID PANEL, STANDARD (7600 ) Reviewed date:03/13/2025 12:10:20 PM Interpretation: Performing Lab:LES[facility] [place]-[id number] [place], [id number] Bryce Cabello MD Notes/Report: CHOLESTEROL, TOTAL 154 <200 mg/dL N HDL CHOLESTEROL 39 > OR = 50 mg/dL L TRIGLYCERIDES 142 <150 mg/dL N LDL-CHOLESTEROL 91 N <70 mg/dL for patients with CHD or diabetic patients better accuracy than the Friedewald equation in the Dontae et al. GLORIA. 2013;310(19): 4009-4158 LDL-C is now calculated using the [facility] Desirable range <100 mg/dL for primary prevention; (http://education.WebAction/faq/F AQ164) with > or = 2 CHD risk factors. estimation of LDL-C. Reference range: <100 calculation, which is a validated novel method providing CHOL/HDLC RATIO 3.9 <5.0 (calc) N NON HDL CHOLESTEROL 115 <130 mg/dL (calc) N option. (LDL-C of <70 mg/dL) is considered a therapeutic factor, treating to a non-HDL-C goal of <100 mg/dL For patients with diabetes plus 1 major ASCVD risk .COMPREHENSIVE METABOLIC AGARAWL EL ([address]) [facility] [address] Reviewed date:04/13/2025 07:55:20 PM Interpretation: Performing Lab:[id number] [place], [id number] Bryce Cabello MD Notes/Report: GLUCOSE 106 65-99 mg/dL H follow-up test. Fasting reference interval prediabetes and should be confirmed with a For someone without known diabetes, a glucose value between 100 and 125 mg/dL is consistent with UREA NITROGEN (BUN) 9 7-25 mg/dL N CREATININE 0.72 0.50-0.99 mg/dL N EGFR 106 > OR = 60 mL/min/1.73m2 N BUN/CREATININE RATIO SEE NOTE: 6-22 (calc) reference range. Not Reported: BUN and Creatinine are within SODIUM 141 135-146 mmol/L N POTASSIUM 4.4 3.5-5.3 mmol/L N CHLORIDE 106 98-110 mmol/L N CARBON DIOXIDE 25 20-32 mmol/L N CALCIUM 9.2 8.6-10.2 mg/dL N PROTEIN, TOTAL 6.3 6.1-8.1 g/dL N ALBUMIN 4.2 3.6-5.1 g/dL N GLOBULIN 2.1 1.9-3.7 g/dL (calc) N ALBUMIN/GLOBULIN RATIO 2.0 1.0-2.5 (calc) N BILIRUBIN, TOTAL 0.5 0.2-1.2 mg/dL N ALKALINE PHOSPHATASE 48 31-125 U/L N AST 11 10-30 U/L N ALT 10 6-29 U/L N Reason For Referral No Information Medications Medication SIG (Take, Route, Frequency, Duration) Notes Start Date End Date Status Phentermine HCl *Pick strength-form from Indelsulan for eRX* 07/30/2024 Active Multivitamin [facility] 07/30/2024 Active Progesterone 100 MG Capsule TAKE 1 CAPSULE BY MOUTH EVERY DAY DIRECTED; Duration: 30 Days Active Estradiol 0.075 MG/24HR Patch Twice Weekly 1 patch to skin Transdermal Two times a Week Active FreeStyle Dameon 3 Plus Sensor - Miscellaneous change sensor every 15 days; Duration: 90 days 12/26/2024 Active FreeStyle Dameon 3 Plus Sensor - Miscellaneous change every 15 days; Duration: 90 days 12/09/2024 Active Social History Social History Additional Details Category Social Info Options Details Migrated Social History Migrated Social History (Alcohol:):no (Recreational drug use:):no (Smoking:):no Section Notes: Non-Contributory Non-Contributory Problems Problem Type SNOMED Code ICD Code Onset Dates Problem Status W/U Status Risk Notes Problem Non-toxic goiter (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) Nontoxic goiter, unspecified (E04.9) Active confirmed Problem Autoimmune thyroiditis (98856489) Autoimmune thyroiditis (E06.3) Active confirmed Problem Vitamin D deficiency (90808729) Vitamin D deficiency, unspecified (E55.9) Active confirmed Problem Overweight (397551370) Overweight (E66.3) Active confirmed Problem Mixed hyperlipidemia (351674707) Mixed hyperlipidemia (E78.2) Active confirmed Problem Polyarthritis (537252978) Polyarthritis, unspecified (M13.0) Active confirmed Problem Menopause (147544651) Menopausal and female climacteric states (N95.1) Active confirmed Problem 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 Catalan [address] [place] [address] 07/30/2024 Jessica Catalan Autoimmune thyroidit is E06.3 ; Mixed hyperlipidemia E78.2 ; Prediabetes R73.03 and Overweight E66.[address] Catalan [address] [place] [address] 11/12/2024 Jessica Catalan Dietary counseling a nd surveillance Z71.3 ; Autoimmune thyroiditis E06.3 ; Prediabetes R73.03 and Overweight E66.[address] Catalan [address] [place] [address] 11/26/2024 Jessica Catalan Menopausal and femal e climacteric states N95.1 ; Autoimmune thyroiditis E06.3 ; Impaired fasting glucose R73.01 and Overweight E66.[address] Catalan [address] [place] [phone] 12/26/2024 Jessica Catalan Autoimmune thyroidit is E06.3 ; Mixed hyperlipidemia E78.2 ; Overweight E66.3 and Reactive hypoglycemia E16.[address] Catalan [address] [place] [phone] 02/06/2025 Jessica Catalan Autoimmune thyroidit is E06.3 ; Reactive hypoglycemia E16.1 ; Overweight E66.3 ; Mixed hyperlipidemia E78.2 and Dietary counseling and surveillance Z71.[address] Catalan [address] [place], [place] [phone] 04/24/2025 Jessica Catalan Impaired fasting glucose R73.01 ; Flory's thyroiditis E06.3 ; Overweight E66.3 and Dietary counseling and surveillance Z71.3 AMMO [facility] [address] [place] [phone] 07/29/2024 Jessica MARTINI [facility] [address] [place] [phone] 10/15/2024 Jessica MARTINI [facility] [address] [place], [place] [phone] 12/05/2024 Jessica Catalan [address] [place] [phone] 12/10/2024 Jessica MARTINI [facility] [address] [place] [phone] 12/26/2024 Jessica Catalan [address] [place] [phone] 12/30/2024 Jessica Catalan [address] [place] [phone] 01/14/2025 Jessica MARTINI [facility] [address] [place] [phone] 04/24/2025 Jessica Catalan [address] [place] [phone] 03/25/2025 Jessiac Catalan Assessments Encounter Date Diagnosis (ICD Code) Assessment Notes Treatment Notes Treatment Clinical Notes Section Notes 07/30/2024 Autoimmune thyroiditis (ICD-10 - E06.3) 07/30/2024 Mixed hyperlipidemia (ICD-10 - E78.2) 11/12/2024 Autoimmune thyroiditis (ICD-10 - E06.3) 11/12/2024 Dietary counseling and surveillance (ICD-10 - Z71.3) Spent 15 minutes preventative counseling patient on dietary recommendations and changes in setting of hyperglycemia- need to restrict refined sugars and processed foods and incorporate up to 150 minutes of moderate level activity weekly. 11/26/2024 Autoimmune thyroiditis (ICD-10 - E06.3) 11/26/2024 Menopausal and female climacteric states (ICD-10 - N95.1) 12/26/2024 Autoimmune thyroiditis (ICD-10 - E06.3) 02/06/2025 Autoimmune thyroiditis (ICD-10 - E06.3) 12/26/2024 Mixed hyperlipidemia (ICD-10 - E78.2) 04/24/2025 Impaired fasting glucose (ICD-10 - R73.01) 04/24/2025 Flory's thyroiditis (ICD-10 - E06.3) 02/06/2025 Reactive hypoglycemia (ICD-10 - E16.1) 04/24/2025 Overweight (ICD-10 - E66.3) 12/26/2024 Overweight (ICD-10 - E66.3) 11/26/2024 Impaired fasting glucose (ICD-10 - R73.01) 11/12/2024 Prediabetes (ICD-10 - R73.03) 07/30/2024 Prediabetes (ICD-10 - R73.03) 07/30/2024 Overweight (ICD-10 - E66.3) 11/12/2024 Overweight (ICD-10 - E66.3) 11/26/2024 Overweight (ICD-10 - E66.3) 02/06/2025 Overweight (ICD-10 - E66.3) 12/26/2024 Reactive hypoglycemia (ICD-10 - E16.1) 04/24/2025 Dietary counseling and surveillance (ICD-10 - Z71.3) Spent 15 minutes preventative counseling patient on dietary recommendations and changes in setting of hyperglycemia- need to restrict refined sugars and processed foods and incorporate up to 150 minutes of moderate level activity weekly. 02/06/2025 Mixed hyperlipidemia (ICD-10 - E78.2) 02/06/2025 Dietary counseling and surveillance (ICD-10 - Z71.3) Spent 15 minutes preventative counseling patient on dietary recommendations and changes in setting of hyperglycemia- need to restrict refined sugars and processed foods and incorporate up to 150 minutes of moderate level activity weekly. 07/30/2024 Other Assessment and Plan: 1. Prediabetes- Continue Metformin 500 mg once daily, consider increasing to twice daily for better glucose control- Encourage a healthy diet and regular exercise- Monitor A1c and fasting glucose levels 2. Overweight (BMI 29)- Encourage a healthy diet and regular exercise- Discuss potential weight loss medications and insurance coverage- Monitor weight and BMI 3. Mildly positive BEST- Monitor for any joint problems, aches, tendinitis, or ligament pain- Encourage a clean diet, consider cutting out gluten and dairy- Monitor thyroid levels and inflammatory markers 4. Dyslipidemia- Encourage a diet rich in salmon, avocados, and exercise to increase HDL- Consider adding Resveratrol supplement- Monitor cholesterol levels, including HDL, LDL, and triglycerides 5. Hormone replacement therapy- Continue estradiol patch and oral progesterone- Monitor for any side effects or symptoms related to hormone therapy 6. Anxiety and possible PMDD- Consider trying BuSpar for anxiety management- Continue therapy for anxiety and insomnia- Monitor cortisol levels if symptoms worsen- Discuss potential medications for PMDD with PCP 7. Continuous glucose monitoring- Provide samples of continuous glucose monitor- Instruct patient to download the prabhu and follow the guidance Follow-up in four months to reassess the patient's progress and make any necessary adjustments to the treatment plan. Spent 25 minutes preparing to see the patient (ex review of tests/chart), obtaining and / or reviewing separately obtained history, performing a medically appropriate examination and/or evaluation, counseling and educating the patient/family/palliative care coordinator, ordering medications, tests, or procedures, referring and communicating with other health ocular care aide, documenting clinical information in the electronic or other health record, independently interpreting results and communicating results to the patient/family/palliative care coordinator and care coordinating patient plan. Patient alert and oriented x 4 and aware of discussion noted above and in agreeance to plan in management of hashimotos thyroiditis, weight management, prediabetes, mixed hyperlipidemia. 11/12/2024 Other Assessment and Plan: 1. Diabetes Mellitus Type 2- Patient's diabetes control has improved. A1c has decreased to 5.4, and insulin levels are low, indicating reduced insulin resistance- Patient was previously on metformin but stopped taking it approximately 2 weeks ago due to frequent nocturnal hypoglycemic episodes- Despite discontinuing metformin, patient reports ongoing symptoms suggestive of hypoglycemia, though blood glucose levels have not dropped below 54 mg/dL- Discontinue metformin (already implemented)- Recommend high-protein, low-carb diet with 2:1 [id number] ratio- Advise protein snack (15g+ protein) at bedtime- Consider [id number] continuous glucose monitor for further evaluation- Provide samples of Dameon 3 continuous glucose monitor if available 2. Dyslipidemia- Patient's lipid panel shows slightly elevated cholesterol levels- LDL cholesterol is under 100 mg/dL, total cholesterol is under 200 mg/dL, and HDL is within normal limits- Triglycerides are unexpectedly high, with no known family history of hypertriglyceridemi a- Continue current management- Reassess lipid panel at next follow-up 3. Insomnia and Anxiety- Patient reports chronic insomnia and anxiety, with some improvement noted since starting hormone replacement therapy (HRT)- Experiences nocturnal panic attacks with tachycardia, tremors, and feeling extremely cold- These symptoms, along with difficulty losing weight and possible easy bruising, raise suspicion for potential hypercortisolism- Order dexamethasone suppression test and morning cortisol level- Check ACTH level- Consider discontinuing estrogen patch for 4 weeks prior to cortisol testing for more accurate results- Evaluate need for further imaging based on test results 4. Hormone Replacement Therapy- Patient is currently on HRT, using estrogen patches and progesterone- Thyroid function tests are stable and within normal limits- Continue current HRT regimen- Monitor thyroid function 5. Family History of Medullary Thyroid Cancer- Patient reports a family history of medullary thyroid cancer in her mother, placing her at increased risk for this condition- Continue regular thyroid monitoring-no GLP1 agonist therapy is recommended - Consider genetic counseling and testing if not previously done Spent 25 minutes preparing to see the patient (ex review of tests/chart), obtaining and / or reviewing separately obtained history, performing a medically appropriate examination and/or evaluation, counseling and educating the patient/family/palliative care coordinator, ordering medications, tests, or procedures, referring and communicating with other health ocular care aide, documenting clinical information in the electronic or other health record, independently interpreting results and communicating results to the patient/family/palliative care coordinator and care coordinating patient plan. Patient alert and oriented x 4 and aware of discussion noted above and in agreeance to plan in management of weight gain,overweight, prediabetes, autoimmune thyroiditis. 11/26/2024 Other Assessment and Plan: 1. Estrogen withdrawal symptoms- Patient reports experiencing side effects after discontinuing estradiol patch for 2 weeks in preparation for cortisol testing- Symptoms include nausea for 4-5 days, headache for a week, and mood swings- These symptoms are consistent with estrogen withdrawal- Schedule cortisol test (dexamethasone suppression test) within the next couple of days, preferably at 8 AM but no later than 9 AM- Patient to take dexamethasone at 10 PM the night before the blood draw- Resume estradiol patch therapy immediately after completing the cortisol test- Follow up on cortisol test results by the end of the week if not received earlier 2. Hypoglycemia- Patient reports ongoing issues with blood sugar regulation, experiencing low blood sugar episodes- She has been attempting to manage this through dietary modifications, focusing on increased protein and complex carbohydrate intake- Consider tirzepatide (Zepbound) as a potential treatment option as she is not tolerating metformin well- Patient to check insurance coverage for Zepbound- Evaluate eligibility criteria for Zepbound coverage, which may require presence of comorbidities 3. Weight management- Patient's current weight is 167 pounds, which represents a slight decrease- She has been actively working on weight management through dietary changes, particularly in conjunction with her efforts to regulate blood sugar- Continue current dietary approach with focus on protein and complex carbohydrates- Monitor weight at follow-up appointments Spent 25 minutes preparing to see the patient (ex review of tests/chart), obtaining and / or reviewing separately obtained history, performing a medically appropriate examination and/or evaluation, counseling and educating the patient/family/palliative care coordinator, ordering medications, tests, or procedures, referring and communicating with other health ocular care aide, documenting clinical information in the electronic or other health record, independently interpreting results and communicating results to the patient/family/palliative care coordinator and care coordinating patient plan. Patient alert and oriented x 4 and aware of discussion noted above and in agreeance to plan in management of impaired fasting glucose, menopausal changes, autoimmune thyroiditis and screening for hypercortisolism. Due to the nature of telemedicine, the ability to do physical assessment was limited to what can be accomplished by patient directed telehealth visit based on instruction. Those limits are understood by the patient and myself. Impression is based on history, available information, and physical findings accomplished with telehealth visit. Chronic disease/problem list/ medication list reviewed and updated where indicated. Discussed diagnosis, plan including risks, benefits, and options of treatment. Advised to call for new, worsening, or persistent symptoms. Level of patient risk was of moderate complexity due to the documented nature of presentation, the information assessment required and the nature of the development of an evaluation and treatment plan as documented. PMH, FHx, SHx, Surgical Hx, Quality management review carried out and addressed as documented today as part of this visit. Medication list was reviewed and adjusted as indicated. Medication requiring a refill was addressed. Risk and benefits of any new medications were discussed and all questions were answered. 12/26/2024 Other Assessment and Plan: 1. Reactive Hypoglycemia- Discontinue metformin due to hypoglycemic episodes- Confirm CGM readings with finger stick blood glucose measurements- Consider trial of 1800 calorie high protein, complex carbohydrate diet- Submit prior authorization for Dameon 3 CGM- Follow up in 6 weeks to reassess glucose control- Patient to call office tomorrow to check on Dameon 3 samples and schedule follow-up appointment- Consider alternative medications if hypoglycemia persists: - Discussed potential use of tirzepatide (Zepbound), berberine, inositol, or acarbose - Patient to consider options and decide at next visit- Monitor for symptoms of true hypoglycemia: nausea, sweats, shakiness- If glucose consistently drops below 50 mg/dL, further workup will be necessary 2. Nocturnal Dyspnea with Tachycardia- Consider referral to rollway worker for evaluation of enlarged tonsils and possible sleep apnea- Discuss potential sleep study to further evaluate nocturnal symptoms- Patient to notify if decides to proceed with sleep study or needs referral- Consider detailed cortisol testing to rule out nocturnal cortisol elevation if symptoms persist Spent 25 minutes preparing to see the patient (ex review of tests/chart), obtaining and / or reviewing separately obtained history, performing a medically appropriate examination and/or evaluation, counseling and educating the patient/family/palliative care coordinator, ordering medications, tests, or procedures, referring and communicating with other health ocular care aide, documenting clinical information in the electronic or other health record, independently interpreting results and communicating results to the patient/family/palliative care coordinator and care coordinating patient plan. Patient alert and oriented x 4 and aware of discussion noted above and in agreeance to plan in management of autoimmune thyroiditis, mixed hyperlipidemia, overweight, reactive hypoglycemia. Due to the nature of telemedicine, the ability to do physical assessment was limited to what can be accomplished by patient directed telehealth visit based on instruction. Those limits are understood by the patient and myself. Impression is based on history, available information, and physical findings accomplished with telehealth visit. Chronic disease/problem list/ medication list reviewed and updated where indicated. Discussed diagnosis, plan including risks, benefits, and options of treatment. Advised to call for new, worsening, or persistent symptoms. Level of patient risk was of moderate complexity due to the documented nature of presentation, the information assessment required and the nature of the development of an evaluation and treatment plan as documented. PMH, FHx, SHx, Surgical Hx, Quality management review carried out and addressed as documented today as part of this visit. Medication list was reviewed and adjusted as indicated. Medication requiring a refill was addressed. Risk and benefits of any new medications were discussed and all questions were answered. 02/06/2025 Other Assessment and Plan: 1. Prediabetes / Insulin Resistance- Continue current dietary modifications: - Avoid potatoes and sugary drinks - Eat smaller, more frequent meals - Focus on fruits, vegetables, lean meats, and dark chocolate for sweet cravings- Recommend [place] yogurt or cottage cheese with a 2:1 [id number] ratio- Encourage consistent meal timing and avoiding long periods without eating- Advise bringing a snack or eating before three-mile walks- Consider ydog-kac-[id number] supplements for insulin sensitivity: - Inositol - Berberine - Vitamins with chromium- Discuss potential use of [place] supplement for insulin resistance, $30-$60/month- Educate on importance of hydration and clean eating- Encourage weight loss efforts- Order laboratory tests for mid to late March, including A1C Follow-up:- Schedule follow-up appointment in April to review lab results and reassess management plan Spent 25 minutes preparing to see the patient (ex review of tests/chart), obtaining and / or reviewing separately obtained history, performing a medically appropriate examination and/or evaluation, counseling and educating the patient/family/palliative care coordinator, ordering medications, tests, or procedures, referring and communicating with other health ocular care aide, documenting clinical information in the electronic or other health record, independently interpreting results and communicating results to the patient/family/palliative care coordinator and care coordinating patient plan. Patient alert and oriented x 4 and aware of discussion noted above and in agreeance to plan in management of autoimmune thyroiditis, overweight/weight management, hypoglycemia secondary to insulin resistance, dietary recommendations/jero nges. 04/24/2025 Other Sally, a female patient with a history of insulin sensitivity and reactive hypoglycemia, presents with concerns about blood sugar fluctuations and morning hyperglycemia. Insulin resistance with reactive hypoglycemiaAssessm ent: Patient exhibits signs of insulin resistance with fasting hyperglycemia (morning blood glucose consistently around 110 mg/dL) and reactive hypoglycemia (episode with blood glucose of 70 mg/dL after consuming regular Coke). A1c is 5.6%, indicating prediabetes. Previous trials of metformin and continuous glucose monitoring (Dameon) were unsuccessful due to persistent hypoglycemic episodes. Patient reports being gluten-free and avoiding sugary drinks, but consumes Coke Zero (contains aspartame). Recent lab work from March showed good thyroid function and insulin levels that were not significantly elevated. Blood glucose levels were 106 mg/dL and 117 mg/dL on separate occasions.Plan:- Consider initiating tirzepatide for blood glucose management and weight loss - Discuss potential insurance coverage options (Mounjaro, Zepbound, Wegovy) - If not covered, consider compounded version starting at $290/month - Informed patient of potential benefits: 15-20 point reduction in blood glucose, improved appetite control- Recommend dietary modifications: - Increase fiber and protein intake - Avoid processed foods, gluten-containing breads, and sodas - Consider coconut milk as a dairy alternative- Discuss alternative treatments: - Berberine supplementation - Chromium supplementation- Continue current thyroid support regimen- Schedule follow-up appointment in 3-4 months Spent 25 minutes preparing to see the patient (ex review of tests/chart), obtaining and / or reviewing separately obtained history, performing a medically appropriate examination and/or evaluation, counseling and educating the patient/family/palliative care coordinator, ordering medications, tests, or procedures, referring and communicating with other health ocular care aide, documenting clinical information in the electronic or other health record, independently interpreting results and communicating results to the patient/family/palliative care coordinator and care coordinating patient plan. Patient alert and oriented x 4 and aware of discussion noted above and in agreeance to plan in management of impaired fasting glucose/reactive hypoglycemia, weight management/dietary recommendations etc. Plan Of Treatment Pending Test Test Name Order Date ultrasound thyroid 01/22/2024 Next Appt Details Provider Name:Jessica Catalan, 12:40:00 PM, [address] [place] [address], [phone], Insurance Providers Payer Name Payer Address Payer Phone Subscriber Number Group Number Insured Name Patient Relationship to Insured Coverage Start Date Coverage End Date Patrick DEAN [address] [place] [address] [id number] Sally Lobo Self - patient is the insured Medical (General) History Medical History History ICD Code prediabetes autoimmune thyroiditis ANEMIA
[2025-07-16 06:58] VITALS: BP 121/65; PULSE 80; RESP 18; TEMP 36.7; O2SAT 99
[2025-07-16 07:01] LABS: BEDSIDEPREGUCG Negative (Negative)
[2025-07-16] MEDS: LACTATED RINGERS 1,000 ML 150 ML IV CONT (07:04)
--- NOTE | 2025-07-16 07:06 | WPDANESEPPF ---
Anes - Initial Pre Proc Eval Procedure: Operation Date: 07/16/25 08:00 Proposed Procedures p Screening Colonoscopy - Vini Ambriz MD Date/Time: 07/16/25 07:06 Surgeon: Vini Ambriz MD Pre Op Diagnosis: Encounter for screening for malignant neoplasm of Patient Data Age: 45 Gender: F Height: 1.63 m Weight: 76.8 kg Last Vital Signs Temp 36.7 C 07/16/25 06:58 Pulse 80 07/16/25 06:58 Resp 18 07/16/25 06:58 BP 121/65 07/16/25 06:58 Pulse Ox 99 07/16/25 06:58 O2 Del Method Room Air 07/16/25 06:58 Allergies Allergy/AdvReac Type Severity Reaction Status Date / Time No Known Allergies Allergy Verified 07/16/25 06:57 Home Medications ?Medication ?Instructions ?Recorded ?Confirmed ?Type escitalopram oxalate 10 mg tablet 10 mg PO DAILY #30 tabs 11/13/23 07/03/25 Rx estradiol 0.075 mg/24 hr 1 patch transdermal .semiweekly 05/06/25 07/03/25 History semiweekly transdermal patch progesterone micronized 100 mg 100 mg PO QPM 05/06/25 07/03/25 History capsule propranolol 10 mg tablet 10 mg PO DAILY PRN anxiety 05/06/25 07/03/25 History cetirizine 10 mg tablet (24Hour 10 mg PO DAILY PRN allergy symptoms 07/03/25 07/03/25 History Allergy) krill oil 500 mg capsule 500 mg PO DAILY 07/03/25 07/03/25 History thyroid support 2 cap BYMOUTH DAILY 07/03/25 07/03/25 History vit K2 180 mcg plus D3 5000IU 1 cap BYMOUTH DAILY 07/03/25 07/03/25 History Laboratory Tests 07/16/25 06:58 POC Urine HCG, Qual Negative (Negative) Patient hx anesthesia problems: none Family hx anesthesia problems: none Results Review: All pre-operative results and documents have been reviewed as part of the pre-operative evaluation. [facility] Past Medical History Medical History Heart palpitations Flory's disease Surgical History Surgical History H/O sinus surgery Hx of laparoscopy Family History Family History Mother Family history of malignant neoplasm of breast in first degree relative Patient's mother is in good health Father Patient's father is in good health Social History Social History Smoking packs per day: 1 Smoking cigarettes per day: 20.0 Years smoked: 8 Smoking pack-years: 8.00 Smoking status: Former smoker Second hand tobacco smoke exposure: No Smoking end date: 09/04/04 Alcohol intake: never Substance use: never Substance use type: does not use Lack of Transportation: No Lack of Food: Never True Current Housing: I Have Housing Concerned About Future Housing: No Difficulty Paying Gas/Electric Bills: No Difficulty Paying for Meds: No Currently Unemployed: No Education: Bachelor's Degree Difficulty w/ Childcare or Family Care: No Living arrangements: with family Occupation/Education: occupation Gender identity (if verbalized by the patient): Female Spiritual care concerns: No Agree to blood products: Yes Anes - Eval Final PreProcedure Day of Procedure 07/16/25 07:06 Patient weight: overweight Heart: regular rate and rhythm Lungs: clear to auscultation Airway: Mallampati scale class II Neurological: alert and oriented Last oral intake: >/= 8 hours ASA classification: II Emergent: no Anesthetic plan: proceed Anesthesia type and monitoring: general GIVS and standard monitoring Results Review: All pre-operative results and documents have been reviewed as part of the pre-operative evaluation. Informed Consent: The patient's anesthetic plan and its attendant risks and benefits were discussed with the patient/family/POA. Questions were solicited and answers provided to the satisfaction of the patient/family/POA.
--- NOTE | 2025-07-16 07:54 | PM.IMHP ---
H&P: HPI History of Present Illness Date/Time: 07/16/25 07:54 Chief Complaint: Screening colonoscopy Narrative: This is the patient's first colonoscopy. There are no GI symptoms and there is no family history of colorectal cancer. Review of Systems Review of Systems: All systems reviewed & are unremarkable except as noted in HPI and below PMFSH Past Medical History Medical History Heart palpitations Flory's disease Surgical History Surgical History H/O sinus surgery Hx of laparoscopy Family History Family History Mother Family history of malignant neoplasm of breast in first degree relative Patient's mother is in good health Father Patient's father is in good health Social History Social History Smoking packs per day: 1 Smoking cigarettes per day: 20.0 Years smoked: 8 Smoking pack-years: 8.00 Smoking status: Former smoker Second hand tobacco smoke exposure: No Smoking end date: 09/04/04 Alcohol intake: never Substance use: never Substance use type: does not use Lack of Transportation: No Lack of Food: Never True Current Housing: I Have Housing Concerned About Future Housing: No Difficulty Paying Gas/Electric Bills: No Difficulty Paying for Meds: No Currently Unemployed: No Education: Bachelor's Degree Difficulty w/ Childcare or Family Care: No Living arrangements: with family Occupation/Education: occupation Gender identity (if verbalized by the patient): Female Spiritual care concerns: No Agree to blood products: Yes Meds Home Medications and Allergies Home Medications ?Medication ?Instructions ?Recorded ?Confirmed ?Type escitalopram oxalate 10 mg tablet 10 mg PO DAILY #30 tabs 11/13/23 07/03/25 Rx estradiol 0.075 mg/24 hr 1 patch transdermal .semiweekly 05/06/25 07/03/25 History semiweekly transdermal patch progesterone micronized 100 mg 100 mg PO QPM 05/06/25 07/03/25 History capsule propranolol 10 mg tablet 10 mg PO DAILY PRN anxiety 05/06/25 07/03/25 History cetirizine 10 mg tablet (24Hour 10 mg PO DAILY PRN allergy symptoms 07/03/25 07/03/25 History Allergy) krill oil 500 mg capsule 500 mg PO DAILY 07/03/25 07/03/25 History thyroid support 2 cap BYMOUTH DAILY 07/03/25 07/03/25 History vit K2 180 mcg plus D3 5000IU 1 cap BYMOUTH DAILY 07/03/25 07/03/25 History Allergies Allergy/AdvReac Type Severity Reaction Status Date / Time No Known Allergies Allergy Verified 07/16/25 06:57 Vital Signs Vital Signs - 24 hr 07/16/25 06:58 Temperature 98.1 F Pulse Rate 80 Respiratory Rate 18 Blood Pressure 121/65 Pulse Oximetry 99 Oxygen Delivery Room Air Exam Const: General: cooperative and healthy appearing Resp: Effort & Inspection: normal respiratory effort and able to speak in complete sentences Auscultation: clear to auscultation bilaterally Cardio: Rate: regular rate Rhythm: regular rhythm GI: Inspection: normal to inspection GI Palp: No No hepatosplenomegaly present Auscultation: normal bowel sounds Rectal Exam: deferred Skin: General skin exam: normal color Psych: Appearance: grossly normal Mental Status: mental status grossly normal Assessment and Plan Assessment and plan (1) Encounter for screening colonoscopy: Code(s): Z12.11 - Encounter for screening for malignant neoplasm of colon Status: Acute Assessment and Plan: The patient is deemed a good candidate for the procedure. Consent signed. Will proceed.
--- NOTE | 2025-07-16 08:17 | S_PTH ---
PATIENT: Sally Lobo LOC: [facility] U#:[id number] AGE/SX: 45/F ROOM: RE07/16/[address]: Vini Ambriz MD : 1980 BED: DIS: 07/16/2025 SPEC #: [id number] RECD: 07/16/25 10:55 STATUS: NAMAN REGolden #: [id number] EVIN: 07/16/25 08:[address]: Vini Ambriz DEPT: [facility] Surgical RECD BY: Stefani Heart ENTERED: 07/16/25 10:55 SP TYPE: Surgical OTHR DR: Sabina Klein, Tissues: A - Colon Polypectomy Procedures: Hematoxylin and Eosin Stain Gross and Microscopic Level 4
[2025-07-16 08:20] VITALS: BP 104/65; PULSE 77; RESP 19; O2SAT 99
[2025-07-16 08:30] VITALS: BP 104/65; PULSE 85; RESP 18; O2SAT 99
[2025-07-16 08:40] VITALS: BP 101/63; PULSE 73; RESP 16; O2SAT 100
== END 2025-07-16 08:49 | disposition home or self-care (01) ==
PROVIDERS: Anesthesiology; PCP Family Medicine; Referring Provider Nurse Practitioner; Visit Provider Internal Medicine Gastroenterology
PROC: 0DJD8ZZ Inspection of Lower Intestinal Tract, Via Natural or Artificial Opening Endoscopic (ICD-10-PCS; CPT 45378; principal; 2025-07-16 08:00)
DX: Z12.11 Encounter for screening for malignant neoplasm of colon (principal); D12.3 Benign neoplasm of transverse colon; Z87.891 Personal history of nicotine dependence
CPT/HCPCS: 45385; 88305; J2003; J2704; J7120

== ENCOUNTER 2025-08-20 07:58 | Outpatient (CLI) | payer BC, SELFPAY ==
--- NOTE | ~2025-08-20 | US_ITS ---
US right upper quadrant Indication: FATTY LIVER, NONTOXIC GOITER Comparison: None Technique: Garcia-scale and color Doppler images were obtained. Findings: LIVER: Unremarkable, liver contours intact, no lesions. Normal echogenicity. . GALLBLADDER/BILIARY: Unremarkable.No cholelithiais, wall thickening or pericholecystic fluid. No biliary dilatation. CBD 3 mm. [place] sign negative. PANCREAS: Unremarkable. Right Kidney: Right kidney 10.4 cm, normal. Impression: Unremarkable exam Reviewed, dictated and finalized at location P. ER Impression: Unremarkable exam
--- NOTE | ~2025-08-20 | US_ITS ---
EXAMINATION: US thyroid DATE: 08/20/2025 09:07 INDICATION: Nontoxic goiter TECHNIQUE: Thyroid ultrasound performed COMPARISON: January 31, 2024 FINDINGS: The right thyroid lobe measures 4.8 x 1.6 x 1.6 cm. The left thyroid lobe measures 5.0 x 1.4 x 1.4 cm. Again noted are bilateral TR for nodules, 8 mm nodule on the right side, and 9 mm nodule on the left side. These are not significantly changed in appearance or size. Isthmus: 4 mm IMPRESSION: Bilateral TR 4 nodules, too small to reliably tissue sample with FNA. Correlate with follow-up thyroid ultrasound in 12 months. Reviewed, dictated and finalized at location A. ICAL ATTENDANT IMPRESSION: Bilateral TR 4 nodules, too small to reliably tissue sample with F NA. Correlate with follow-up thyroid ultrasound in 12 months.
== END 2025-08-20 07:59 | disposition home or self-care (01) ==
LOC: MICIMG 07:58
PROVIDERS: PCP Family Medicine; Visit Provider Internal Medicine Endocrinology, Diabetes & Metabolism
DX: K76.0 Fatty (change of) liver, not elsewhere classified (principal); E04.2 Nontoxic multinodular goiter
CPT/HCPCS: 76536; 76705